=== PATIENT | female | born 1945 | race Caucasian/White ===

== ENCOUNTER → 2017-12-24 15:23 | Outpatient (CLI) | payer MEDICARE, SELFPAY ==
[2017-12-24 17:01] LABS: Absolute Lymphocyte Count 1.49 X10^3/ul (0.83-4.51); Absolute Neutrophil Count 4.1 X10^3/uL (2.0-7.7); Basophil# 0.02 X10^3/uL; Basophil% 0.3 % (0-1); Eosinophil# 0.24 X10^3/uL; Eosinophils% 3.7 % (0-5); Hematocrit 42.3 % (37-47); Hemoglobin 13.9 g/dl (12.0-15.0); Lymphocyte # 1.49 X10^3/ul (4.0); Lymphocyte % 22.9 % (19-41); Mean Corp Hgb Conc 32.9 g/gl (32-36); Mean Corpuscular Hgb 29.4 pg (27.0-32.0); Mean Corpuscular Volume 89.6 fL (81-99); Mean Platelet Vol. 12.6 fl (6.2-12.0); Monocyte# 0.62 X10^3/uL; Monocyte% 9.5 % (0-10); Neutrophil # 4.13 X10^3/uL (2.7-7.7); Neutrophil % 63.4 % (47-70); Platelet Count 203 K/mm3 (150-450); RBC Distribution Width CV 14.2 % (11.6-14.6); Red Blood Count 4.72 M/mm3 (4.2-5.4); White Blood Count 6.5 K/mm3 (4.4-11.0)
[2017-12-24 17:10] LABS: POSITIVE COUNT NO; POSITIVE DIFFERENTIAL NO; POSITIVE MORPHOLOGY NO
[2017-12-24 17:56] LABS: ALB/GLOB Ratio 0.9 RATIO (0.9-2.4); AST(SGOT) 13 U/L (15-37); Alanine Aminotransfer ALT/SGPT 18 U/L (13-56); Albumin, Serum 3.4 g/dL (3.2-5.0); Alkaline Phosphatase 82 U/L (45-117); Anion Gap 8 (5-15); BUN 27 mg/dL (7-18); BUN/Creat Ratio 39.1 RATIO (10-20); Chloride 105 mmol/L (98-107); Creatinine, Serum 0.69 mg/dL (0.55-1.02); EST Glomerular Filtration Rate 89 mL/min (>60); Est Glom Filt Rate - Afr Amer 107 mL/min (>60); Globulin 3.6 g/dL (2.2-4.2); Glucose 119 mg/dL (74-106); Potassium 4.1 mmol/L (3.5-5.1); Sodium Level 140 mmol/L (136-145); Thyroid Stim Hormone (TSH) 1.16 uIU/mL (0.358-3.74)
[2017-12-25 08:43] LABS: Vitamin D,25 Hydroxy 24.5 ng/mL (19.95-100.01)
== END ==
PROVIDERS: Family Provider Family Medicine Geriatric Medicine; PCP Family Medicine Geriatric Medicine; Visit Provider Family Medicine Geriatric Medicine
DX: I10 Essential (primary) hypertension (principal); E11.9 Type 2 diabetes mellitus without complications; E55.9 Vitamin D deficiency, unspecified
CPT/HCPCS: 36415; 80053; 82306; 84443; 85025

== ENCOUNTER → 2018-03-17 16:28 | Outpatient (CLI) | payer MEDICARE, SELFPAY ==
--- NOTE | 2018-03-17 16:40 | RAD_ITS ---
STUDY: X-RAY CHEST REASON FOR EXAM: Female, 72 years old. Cough TECHNIQUE: Frontal and lateral views of the chest COMPARISON: 10/11/2017 FINDINGS: The lungs are clear. There are no pleural effusions. There is no pneumothorax. The heart is normal in size. There are degenerative changes noted in the shoulders. RAD/Chest PA and Lateral IMPRESSION: No acute thoracic pathology. Electronically Signed: Jonnie Jenkins, at 17:01 EDT Tel , Service support ,
== END ==
PROVIDERS: Family Provider Family Medicine Geriatric Medicine; PCP Family Medicine Geriatric Medicine; Visit Provider Family Medicine Geriatric Medicine
DX: R06.2 Wheezing (principal); R50.9 Fever, unspecified
CPT/HCPCS: 71046; 87633

== ENCOUNTER → 2018-04-18 11:47 | Outpatient (CLI) | payer MEDICARE, SELFPAY ==
[2018-04-18 12:40] LABS: Absolute Lymphocyte Count 1.22 X10^3/ul (0.83-4.51); Absolute Neutrophil Count 5.3 X10^3/uL (2.0-7.7); Basophil# 0.02 X10^3/uL; Basophil% 0.3 % (0-1); Eosinophils% 1.4 % (0-5); Hematocrit 45.1 % (37-47); Hemoglobin 14.7 g/dl (12.0-15.0); Lymphocyte # 1.22 X10^3/ul (4.0); Lymphocyte % 16.8 % (19-41); Mean Corp Hgb Conc 32.6 g/gl (32-36); Mean Corpuscular Hgb 29.5 pg (27.0-32.0); Mean Corpuscular Volume 90.6 fL (81-99); Mean Platelet Vol. 12.2 fl (6.2-12.0); Monocyte# 0.62 X10^3/uL; Monocyte% 8.5 % (0-10); Neutrophil # 5.28 X10^3/uL (2.7-7.7); Neutrophil % 72.7 % (47-70); Platelet Count 197 K/mm3 (150-450); RBC Distribution Width CV 13.9 % (11.6-14.6); RBC Distribution Width SD 46.1 fl (35.1-43.9); Red Blood Count 4.98 M/mm3 (4.2-5.4); White Blood Count 7.3 K/mm3 (4.4-11.0)
[2018-04-18 13:12] LABS: POSITIVE COUNT NO; POSITIVE DIFFERENTIAL NO; POSITIVE MORPHOLOGY NO
[2018-04-18 13:28] LABS: ALB/GLOB Ratio 1.2 RATIO (0.9-2.4); AST(SGOT) 12 U/L (15-37); Alanine Aminotransfer ALT/SGPT < 6 U/L (13-56); Albumin, Serum 3.7 g/dL (3.2-5.0); Alkaline Phosphatase 91 U/L (45-117); Anion Gap 6 (5-15); BUN 27 mg/dL (7-18); Calcium,Total 9.8 mg/dL (8.5-10.1); Chloride 107 mmol/L (98-107); Creatinine, Serum 0.68 mg/dL (0.55-1.02); EST Glomerular Filtration Rate 91 mL/min (>60); Est Glom Filt Rate - Afr Amer 110 mL/min (>60); Globulin 3.1 g/dL (2.2-4.2); Glucose 113 mg/dL (74-106); Potassium 4.9 mmol/L (3.5-5.1); Protein, Total 6.8 g/dL (6.4-8.2); Sodium Level 140 mmol/L (136-145); Thyroid Stim Hormone (TSH) 0.07 uIU/mL (0.358-3.74)
[2018-04-18 13:33] LABS: Vitamin D,25 Hydroxy 30.1 ng/mL (29.95-100.01)
== END ==
PROVIDERS: Family Provider Family Medicine Geriatric Medicine; PCP Family Medicine Geriatric Medicine; Visit Provider Family Medicine Geriatric Medicine
DX: E11.9 Type 2 diabetes mellitus without complications (principal); E55.9 Vitamin D deficiency, unspecified; I10 Essential (primary) hypertension
CPT/HCPCS: 36415; 80053; 82306; 84443; 85025

== ENCOUNTER 2018-04-20 17:09 | Emergency (ER) | payer MEDICARE, SELFPAY ==
[2018-04-20 17:11] VITALS: BP 163/56; PULSE 64; RESP 18; TEMP 36.7; O2SAT 97; BMI 71.0
--- NOTE | 2018-04-20 17:22 | CT_ITS ---
STUDY: CT BRAIN WITHOUT CONTRAST REASON FOR EXAM: Female, 72 years old. Head injury RADIATION DOSAGE (If Supplied By Facility): CTDIvol = ( 44.99 ) mGy, DLP = ( 728.62 ) mGycm TECHNIQUE: Transaxial CT imaging of the brain was performed without administration of intravenous contrast material. Individualized dose optimization techniques were used for this CT. COMPARISON: October 11, 2017 FINDINGS: There is soft tissue swelling and minimal air in the left parietal region. The osseous structures are unremarkable. There is moderate cerebral atrophy with widening of the extra-axial spaces and ventricular dilatation. There are scattered areas of decreased attenuation within the white matter tracts of the supratentorial brain, likely microvascular changes. The basal ganglia and thalami are unremarkable. No abnormalities are seen in the brainstem. The cerebellum is unremarkable. There are moderate vascular calcifications. There is no intracranial hemorrhage. There are no findings of acute ischemia. The visualized sinuses are unremarkable. CT/Brain/Head without Contrast IMPRESSION: No acute intracranial abnormalities or changes. There are stable chronic findings. A scalp hematoma and laceration are present in the left parietal region without underlying fracture. Electronically Signed: Ana Luisa Babcock MD at 18:56 EDT Tel Direct: [phone], Service support ,
--- NOTE | 2018-04-20 17:23 | ED.VISSUMM ---
- ER Visit Summary Date of Service: 04/20/18 Chief Complaint: Head injury status post fall History of Present Illness: The patient is a 72 F who was on the commode. Uncertain whether she passed out versus loss of balance presents with laceration left parietal area. She does report being days. She complains of mild head discomfort. She denies any double vision, blurred vision loss of vision. She has multiple hearing. Denies trouble with speech or swallowing. She denies any neck pain. She denies paresthesia, anesthesia motors present time of the fall. She denies chest pain, palpitations or rapid heartbeat. She denies shortness of breath or difficulty breathing. She denies nausea or vomiting. She denies black or maroon stool. She has no urologic symptoms. Please read written note for complete detail Physical Examination: There is a laceration left parietal area that is 3-1/2-4 cm in length. There is no clinical findings of basal skull fracture. Pupils equal round reactive. Extra muscle intact. Sclera is anicteric and there is no soft conjunctival hemorrhage noted. There is no septal deviation hematoma. No pain the patient in the face. No TMJ tenderness and no evidence of malocclusion or trismus. Trachea is midline. There is no cervical spine tenderness. She has full active range of motion of her neck. Heart is regular without murmur, gallop or rub. S1 and S2 are normal. Lungs are clear to auscultation with good movement of air bilaterally. Abdomen is soft nontender. Is no pain the patient the pelvis. GCS is 15. Patient is alert and oriented ?3. Motor is 5/5. Sensation is intact. DTRs are symmetric without clonus or Babinski. Cranial nerves II through XII are intact. Finger to nose to finger was performed adequately. Test Results: CT of the head reveals no fracture, subarachnoid hemorrhage, epidural or subdural. There is no intraparenchymal bleed noted either. There is calcification of the choroid plexus. Emergency Department Course and Treatment: Since patient is greater the age of 65 and had transient loss of consciousness per the [place] CT head rule radiologic imaging of the head i.e. CAT scan is indicated. Immunizations up-to-date. Once CAT scan has been performed and if there is no obvious injury will staple laceration. Treatment Plan: Patient's wound was anesthetized 1% lidocaine. The wound was cleansed with surgical Cleanse. A total of 6 fabian was placed. Disposition: Discharged to home with family Impression: 1. Closed head injury with transient loss of consciousness 2. 3.5 cm scalp laceration 3. Fall unknown cause initial encounter This note was generated with [employer] dictation software. It may contain incorrect words, spelling, and punctuation that were not noted in review of the chart prior to signing ED Disposition - Plan for ED Patient: Disposition: Home or Assisted Living Chief Complaint: Fall Instructions: ED Fall Uncertain Cause, ED Laceration Scalp Stitch Or Stap, ED Head Injury Closed Referrals: Beltran Garza Chi, MD [Primary Care Provider] - 7 Days for suture removal
--- NOTE | 2018-04-20 17:26 | ED.DCSUM_ITS ---
- ER Visit Summary Date of Service: 04/20/18 Chief Complaint: Head injury status post fall History of Present Illness: The patient is a 72 F who was on the commode. Uncertain whether she passed out versus loss of balance presents with laceration left parietal area. She does report being days. She complains of mild head discomfort. She denies any double vision, blurred vision loss of vision. She has multiple hearing. Denies trouble with speech or swallowing. She denies any neck pain. She denies paresthesia, anesthesia motors present time of the fall. She denies chest pain, palpitations or rapid heartbeat. She denies shortness of breath or difficulty breathing. She denies nausea or vomiting. She denies black or maroon stool. She has no urologic symptoms. Please read written note for complete detail Physical Examination: There is a laceration left parietal area that is 3-1/2-4 cm in length. There is no clinical findings of basal skull fracture. Pupils equal round reactive. Extra muscle intact. Sclera is anicteric and there is no soft conjunctival hemorrhage noted. There is no septal deviation hematoma. No pain the patient in the face. No TMJ tenderness and no evidence of malocclusion or trismus. Trachea is midline. There is no cervical spine tenderness. She has full active range of motion of her neck. Heart is regular without murmur, gallop or rub. S1 and S2 are normal. Lungs are clear to auscultation with good movement of air bilaterally. Abdomen is soft nontender. Is no pain the patient the pelvis. GCS is 15. Patient is alert and oriented ?3. Motor is 5/5. Sensation is intact. DTRs are symmetric without clonus or Babinski. Cranial nerves II through XII are intact. Finger to nose to finger was performed adequately. Test Results: CT of the head reveals no fracture, subarachnoid hemorrhage, epidural or subdural. There is no intraparenchymal bleed noted either. There is calcification of the choroid plexus. Emergency Department Course and Treatment: Since patient is greater the age of 64 and had transient loss of consciousness per the [place] CT head rule radiologic imaging of the head i.e. CAT scan is indicated. Immunizations up-to- date. Once CAT scan has been performed and if there is no obvious injury will staple laceration. Treatment Plan: Patient's wound was anesthetized 1% lidocaine. The wound was cleansed with surgical Cleanse. A total of 6 fabian was placed. Disposition: Discharged to home with family Impression: 1. Closed head injury with transient loss of consciousness 2. 3.5 cm scalp laceration 3. Fall unknown cause initial encounter This note was generated with [employer] dictation software. It may contain incorrect words, spelling, and punctuation that were not noted in review of the chart prior to signing ED Disposition - Plan for ED Patient: Disposition: Home or Assisted Living Chief Complaint: Fall Instructions: ED Fall Uncertain Cause, ED Laceration Scalp Stitch Or Stap, ED Head Injury Closed Referrals: Beltran Garza Chi, MD [Primary Care Provider] - 7 Days for suture removal
[2018-04-20 18:35] VITALS: BP 164/63; PULSE 53; RESP 20; O2SAT 99
== END 2018-04-20 18:36 | disposition home or self-care (01) ==
PROVIDERS: Emergency Provider Emergency Medicine; Family Provider Family Medicine Geriatric Medicine; PCP Family Medicine Geriatric Medicine
DX: S01.01XA Laceration without foreign body of scalp, initial encounter (principal); R55 Syncope and collapse; W19.XXXA Unspecified fall, initial encounter; Y93.9 Activity, unspecified; Y92.9 Unspecified place or not applicable; E66.9 Obesity, unspecified; E11.9 Type 2 diabetes mellitus without complications; I10 Essential (primary) hypertension; E78.00 Pure hypercholesterolemia, unspecified; Z79.82 Long term (current) use of aspirin; Z79.84 Long term (current) use of oral hypoglycemic drugs; Z79.899 Other long term (current) drug therapy
CPT/HCPCS: 12002; 70450; 99285

== ENCOUNTER 2018-05-20 15:43 | Emergency (ER) | payer MEDICARE, SELFPAY ==
[2018-05-20 15:44] VITALS: BP 193/84; PULSE 63; RESP 16; TEMP 36.9; O2SAT 97; BMI 33.7
--- NOTE | 2018-05-20 16:14 | EKG12_ITS ---
Test Reason : Blood Pressure : / mmHG Vent. Rate : 054 BPM Atrial Rate : 054 BPM P-R Int : 158 ms QRS Dur : 082 ms QT Int : 452 ms P-R-T Axes : 077 041 065 degrees QTc Int : 428 ms Sinus bradycardia with sinus arrhythmia Otherwise normal ECG Confirmed by KAYDEN VERA, LATRICIA ([id number]), editor school photograph RUBI HANLEY ([id number]) on 05/22/2018 2:29:43 PM Referred By: KYUNG Confirmed By:LATRICIA MONIQUE MD
--- NOTE | 2018-05-20 16:14 | CT_ITS ---
STUDY: CT BRAIN WITHOUT CONTRAST REASON FOR EXAM: Female, 72 years old. Syncope today, hit head, dizzy. Hx hypertension and diabetes. RADIATION DOSAGE (If Supplied By Facility): CTDIvol = ( 60.81 ) mGy, DLP = ( 998.67 ) mGycm TECHNIQUE: Transaxial CT imaging of the brain was performed without administration of intravenous contrast material. COMPARISON: Study done earlier today. FINDINGS: Soft tissue swelling of the left posterior scalp. Improvement in the previously noted left lateral scalp laceration. There is no underlying fracture. There are calcifications around the carotid artery. These are noted in the cavernous carotid arteries. There is a partially calcified mass along the left extra-axial space. This is likely a meningioma. There is mild cerebral atrophy with widening of the extra-axial spaces and ventricular dilatation. There are areas of decreased attenuation within the white matter tracts of the supratentorial brain, consistent with microvascular disease changes. Normal basal ganglia and thalami. Normal brainstem. There is mild cerebellar atrophy. There is no intracranial hemorrhage. There are no findings of an acute ischemic infarction. Normal visualized paranasal sinuses. CT/Brain/Head without Contrast IMPRESSION: Chronic involutional changes of the brain. Soft tissue swelling of the left posterior scalp. There is no underlying fracture.Improvement in the previously noted left lateral scalp laceration. . Electronically Signed: Juan Grijalva MD at 17:50 EDT , Service support ,
--- NOTE | 2018-05-20 16:18 | ED.DCSUM_ITS ---
- ER Visit Summary Date of Service: 05/20/18 Chief Complaint: Head injury History of Present Illness: The patient is a 72 F who states that she was in bed this afternoon (having just came back from [place]) and around 1500 needed to urinate. The patient got up and felt dizzy/lightheaded but grabbed her walker and continued on eventually passed out. She struck the back of her head on the ground. Possible loss of consciousness. She denies any other injuries other than a contusion to her scalp. No chest pain or shortness of breath. She has a history of orthostatic hypotension. Physical Examination: Afebrile vital signs are stable Gen: Well-nourished well-developed Head: Normocephalic left occipital hematoma Eyes: Perrl EOMI ENT: TMs clear no rhinorrhea moist mucous membranes Neck: Supple no lymphadenopathy no JVD nontender CVS: Regular rate rhythm no murmurs normal S1-S2 Respiratory: No distress clear to auscultation bilaterally chest nontender Abdomen: Soft nontender nondistended normal bowel sounds no masses Back: Nontender Extremity: Nontender no edema Skin: Normal color no rash Neuro: alert orientated ?3 CN II-XII intact normal strength sensation reflexes cerebellar Psych: Normal affect normal mood Test Results: Labs appear at its baseline. CT brain showed no hemorrhage. EKG sinus at a rate of 54. Emergency Department Course and Treatment: Orthostatics were negative. Patient feels good and wishes to go home which I feel is very reasonable. I think the patient most likely suffered a degree of hypotension from getting up too fast coupled with a strong urge to urinate possible vagal reaction. Impression: 1. Syncope secondary to orthostatic hypotension 2. Scalp hematoma This note was generated with [employer] dictation software. It may contain incorrect words, spelling, and punctuation that were not noted in review of the chart prior to signing ED Disposition - Plan for ED Patient: Disposition: Home or Assisted Living Chief Complaint: Syncope Instructions: ED Hypotension Orthostatic Referrals: Beltran Garza Chi, MD [Primary Care Provider] - 1 Week
[2018-05-20 16:32] LABS: Absolute Lymphocyte Count 1.03 X10^3/ul (0.83-4.51); Basophil# 0.01 X10^3/uL; Basophil% 0.2 % (0-1); Eosinophil# 0.23 X10^3/uL; Hematocrit 39.7 % (37-47); Hemoglobin 12.8 g/dl (12.0-15.0); Lymphocyte # 1.03 X10^3/ul (4.0); Lymphocyte % 17.9 % (19-41); Mean Corp Hgb Conc 32.2 g/gl (32-36); Mean Corpuscular Hgb 29.4 pg (27.0-32.0); Mean Corpuscular Volume 91.1 fL (81-99); Mean Platelet Vol. 11.7 fl (6.2-12.0); Monocyte# 0.48 X10^3/uL; Monocyte% 8.4 % (0-10); Neutrophil # 3.98 X10^3/uL (2.7-7.7); Neutrophil % 69.3 % (47-70); Platelet Count 168 K/mm3 (150-450); RBC Distribution Width CV 14.4 % (11.6-14.6); RBC Distribution Width SD 48.3 fl (35.1-43.9); Red Blood Count 4.36 M/mm3 (4.2-5.4); White Blood Count 5.7 K/mm3 (4.4-11.0)
[2018-05-20 16:34] LABS: POSITIVE COUNT NO; POSITIVE DIFFERENTIAL NO; POSITIVE MORPHOLOGY NO
[2018-05-20 16:37] VITALS: BP 147/93; BP 159/96; PULSE 58; PULSE 60
--- NOTE | 2018-05-20 16:37 | ED.RN ---
PT FELT DIZZY AFTER SITTING UP FROM LAYING POSITION. DID NOT STAND PATIENT FOR STANDING ORTHO VITAL DUE TO DIZZINESS AND FEELING FAINT.
[2018-05-20 16:40] LABS: Bacteria 0 SEEN /hpf (None Seen); Mucous, Urine 0 SEEN /hpf (<or=2+); Red Blood Cells-Urine 0 SEEN /hpf (0-5); White Blood Cells 0 SEEN /hpf (0-5)
[2018-05-20 16:45] LABS: Anion Gap 5 (5-15); BUN 25 mg/dL (7-18); BUN/Creat Ratio 43.4 RATIO (10-20); Calcium,Total 9.1 mg/dL (8.5-10.1); Chloride 106 mmol/L (98-107); Creatinine, Serum 0.58 mg/dL (0.55-1.02); EST Glomerular Filtration Rate 109 mL/min (>60); Est Glom Filt Rate - Afr Amer 132 mL/min (>60); Estimated Creatinine Clearance 39.63 ml/min; Glucose 70 mg/dL (74-106); Sodium Level 140 mmol/L (136-145)
[2018-05-20 16:46] LABS: Color, Urine Yellow (Yellow); Glucose, Dipstick Normal (Normal); Ketone-Dipstick Negative (Negative); Leukocyte Esterase-Dipstick Negative /ul (Negative); Nitrite-Dipstick Negative (Negative); Occult Blood-Urine Negative /ul (Negative); Protein-Dipstick Negative (Negative); Urine Bilirubin Dipstick Negative (Negative); Urine Clarity Clear (Clear); Urine Urobilinogen Normal (Normal); Urine pH 6.5 (5.0 - 8.0)
[2018-05-20 17:00] LABS: Squamous Epithelial Cells - UA 0 SEEN /hpf (5-10)
[2018-05-20 18:42] VITALS: BP 164/74; PULSE 58; RESP 18; O2SAT 95
== END 2018-05-20 18:43 | disposition home or self-care (01) ==
PROVIDERS: Emergency Provider Emergency Medicine; Family Provider Family Medicine Geriatric Medicine; PCP Family Medicine Geriatric Medicine
DX: I95.1 Orthostatic hypotension (principal); S00.03XA Contusion of scalp, initial encounter; W01.198A Fall on same level from slipping, tripping and stumbling with subsequent striking against other object, initial encounter; Y93.9 Activity, unspecified; Y92.008 Other place in unspecified non-institutional (private) residence as the place of occurrence of the external cause; Y99.9 Unspecified external cause status; E11.9 Type 2 diabetes mellitus without complications; I10 Essential (primary) hypertension; E78.00 Pure hypercholesterolemia, unspecified; G20 Parkinson's disease; Z87.891 Personal history of nicotine dependence
CPT/HCPCS: 70450; 80048; 81001; 84484; 85025; 93005; 99285; A4216

== ENCOUNTER → 2018-06-02 15:04 | Outpatient (CLI) | payer MEDICARE, SELFPAY ==
[2018-06-02 18:05] LABS: Thyroid Stim Hormone (TSH) 0.59 uIU/mL (0.358-3.74)
== END ==
PROVIDERS: Family Provider Family Medicine Geriatric Medicine; PCP Family Medicine Geriatric Medicine; Visit Provider Family Medicine Geriatric Medicine
DX: E03.9 Hypothyroidism, unspecified (principal)
CPT/HCPCS: 36415; 84443; 97110

== ENCOUNTER 2018-08-14 15:00 | Outpatient (RCR) | payer MEDICARE, SELFPAY ==
--- NOTE | 2018-05-01 18:13 | HP.PTEVAL_ITS ---
Patient's Visit Information VIPUL RODRÍGUEZ is a 72 year old F referred to Physical Therapy by Beltran Garza with a diagnosis of Gait difficulty. Date of Evaluation: 05/01/18 Physical Therapist: Juan Schwartz PT, - Visit Plan Frequency: 3x /Week Duration: 6-8 weeks Plan: B LE strengthening, balance and proprio, gait training with cane, nustep, and HEP - Subjective Subjective: Pt reports her walking has been getting worse over the past 6 mos. Pt reports she was Dx'd with Parkinsons disease on her last Dr visit, which she was actually surprised to hear. Pt reports she is very weak, and her stamina is very low. Pt reports she doesn't like exercise, and she has noticed a difference with her balance lessening. Pt reports she has OA in her shoulders, but no other pain. Pt reports she has had 6 falls since November. Pt reports she has good feeling in her feet, but does get tingling sensations at times. - Objective Neuro: B LE sensation is WNL to light touch. B patellar tendon reflex= 2/3. MMT : B hip abd and add= 5/5. All other measurements 4-/5. Balance: LS EO/EC pt is very steady for 60 sec ea. Pt is unable to stand greater than 1 sec for SL. Gait: Pt is able to ambulate for 130 with Std cane, but is very unsteady. Pt is very steady with ambulating 130 ft with WW - Goals Goal 1:: Increase B LE strength x 1 grade to aid with IADL's Goal Time Frame: 6-8 Weeks Goal 2:: Pt will be able to ambulate 340' with LRD to aid with community ambulation Goal Time Frame: 6-8 Weeks Goal 3:: I with HEP Goal Time Frame: 4-6 Weeks - Rehabilitation Potential Physical Therapy Diagnosis: Pt has LE weakness and decreased balance secondary to Parkinsons disease Rehabilitation Potential: Good - Anticipated Interventions Patient/Client Instruction: Educate patient on: Condition, Plan of Care For the Purpose of:: To improve self management Therapeutic Exercise to Include: Strength training, Endurance training, Balance training, Gait and locomotor training For the Purpose of:: To improve muscle performance and motor function, To increase tolerance to activity/condition/position Thank you for the opportunity to evaluate your patient. For Medicare and Medicare HMO plans, please review the plan of care and approve it. It will need to be FAXED BACK to us at [phone] for Medicare purposes. Please let me know if there are questions or concerns regarding this plan of care. Physician Signature: Date:
--- NOTE | 2018-06-06 14:03 | HP.PTEVAL2_ITS ---
Patient's Visit Information VIPUL RODRÍGUEZ is a 72 year old F referred to Physical Therapy by Beltran Garza with a diagnosis of BPPV. Date of Evaluation: 06/06/18 Physical Therapist: Lala Abarca - Visit Plan Frequency: 1-2x /Week Duration: 2 Weeks Plan: 1-2X/ week for re-testing of Hallpike and Eply if needed and possible Yusuf-daroff exercises if needed for home - Subjective Subjective: Dizziness started several weeks ago and has been off and on dizziness since Nov. Pt reports that she gets dizzy when turns her head or when gets up too soon. Did not notice too much when she fell in Dec. When she is in bed she gets dizzy sometimes when she rolls to the R. She is on BP med ( on 3 X / day to avoid orthostatic hypotension). Pt thinks that med has helped a little bit. The room spins when she rolls to the R side and lasts a couple of minutes. Now pt thinks rolling to the L also increases dizziness. Pt is not dizziness right now. Possibly overall dizziness getting better. Pt is currently being seen here in PT for Parkinson's.... Fallen 6-7 times since Nov. She uses the walker since the Dr said to use the walker (3-4 weeks ago). Before that she was getting around ok in the house. - Objective Objective: - Hallpike to the R for nystagmus and slight brief dizziness (? PB). + Hallpike to the L for nystagmus and dizziness that lasted about 26 seconds. Treated with L EPLY. Re-tested L Hallpike and pt was negative for nystagmus but positive for slight dizziness that lasted approx 10 seconds. Re-treated with L EPLY. Re-test L hallpike for 3rd time and was negative for dizziness and nystagmus. Advised pt to avoid prolonged looking down through tonight. - Goals Goal 1:: Abolish dizziness with turning in bed Goal Time Frame: 2 Weeks Goal 2:: I HEP (Yusuf daroff) if needed Goal Time Frame: 2 Weeks - Rehabilitation Potential Rehabilitation Potential: Good - Anticipated Interventions Patient/Client Instruction: Educate patient on: Condition, Plan of Care For the Purpose of:: To improve ability to perform ADL's, To improve ability of physical actions for home/community/work/leisure, To improve gait and locomotor functions, To improve balance Therapeutic Exercise to Include: Neuromotor development For the Purpose of:: To improve ability to perform ADL's, To increase tolerance to activity/condition/position, To improve gait and locomotor functions, To improve balance, To improve safety with gait Manual Therapy Techniques to Include: Other Comment: Eply For the Purpose of:: To increase tolerance to activity/condition/position, To improve ability of physical actions for home/community/work/leisure Thank you for the opportunity to evaluate your patient. For Medicare and Medicare HMO plans, please review the plan of care and approve it. It will need to be FAXED BACK to us at [phone] for Medicare purposes. Please let me know if there are questions or concerns regarding this plan of care. Physician Signature: Date:
--- NOTE | 2018-06-13 14:23 | HP.PTCOM ---
PT Communication Note 06/13/[address] Beltran Garza , Thank you for the referral of Shannan Godwin to out clinic. The pt was tested on our [employer] Balance Master today and enclosed are the patients test results. On the Sensory Organization Test (SOT): the pt had some trouble with the use of her vestibular and visual systems to help her maintain her balance. She uses her ankles for strategy analysis which is higher level and her center of gravity alignment is within normal limits. On the Motor Control Test (MCT): the pt had good overall reaction time. On the Limits of Stability Test (LOS): the pt had some difficulty with weight shifting forward, backward, and slightly to the left. At this point in time, I will see the pt a couple of times per week for a few weeks to work on VOR exercises, vestibular inputs, and weight shifting activities. Sincerely, Lala Abarca Contact Information
--- NOTE | 2018-06-16 17:16 | HP.PTREVAL_ITS ---
Beltran Chi Greg, It has been my pleasure to treat VIPUL RODRÍGUEZ over the last 9 visits for Gait difficulty. Please see the progress note below for an update on the physical therapy plan of care! Subjective: Pt reports she knows she still has balance issues. Pt feels as though she would benefit from more PT Objective/Function: B LE strength now 4/5 throughout. Pt is able to ambulate 680' with WW and CGAx1 until being fatigued. Pt is able to ambulate 170' with no AD and cgax1. Pt is progressing well toward Rx goals Plan Plan: Continue to progress as paulina Goals Goal 1:: Increase B LE strength x 1 grade to aid with IADL's Goal Time Frame: 6-8 Weeks Goal Progress: Progressing Goal 2:: Pt will be able to ambulate 340' with LRD to aid with community ambulation Goal Time Frame: 6-8 Weeks Goal 3:: I with HEP Goal Time Frame: 4-6 Weeks Goal Progress: Progressing Anticipated Interventions Patient/Client Instruction: Educate patient on: Condition, Plan of Care For the Purpose of:: To improve self management Therapeutic Exercise to Include: Strength training, Endurance training, Balance training, Gait and locomotor training For the Purpose of:: To improve muscle performance and motor function, To increase tolerance to activity/condition/position Please do not hesitate to contact me at [phone] by phone or Fax: if you have questions or concerns regarding this new plan of care! Sincerely, Juan Schwartz, PT,
--- NOTE | 2018-07-23 15:57 | HP.PTREVAL ---
Beltran Chi Greg, It has been my pleasure to treat VIPUL RODRÍGUEZ over the last 19 visits for Gait difficulty. Please see the progress note below for an update on the physical therapy plan of care! Subjective: Pt is very fatigued this date. Pt reports the heat is killing me Objective/Function: B LE grossly 5/5 with exception of L knee flex= 4-/5 and R knee ext 4/5. Pt was able to ambulate 120' with cane until needing to sit down and rest. Pt is progressing well with HEP Plan Plan: Cont 2x's per week for 3 weeks Goals Goal 1:: Increase B LE strength x 1 grade to aid with IADL's Goal Time Frame: 6-8 Weeks Goal Progress: Progressing Goal 2:: Pt will be able to ambulate 340' with LRD to aid with community ambulation Goal Time Frame: 6-8 Weeks Goal Progress: Progressing Goal 3:: I with HEP Goal Time Frame: 4-6 Weeks Goal Progress: Progressing Anticipated Interventions Patient/Client Instruction: Educate patient on: Condition, Plan of Care For the Purpose of:: To improve self management Therapeutic Exercise to Include: Strength training, Endurance training, Balance training, Gait and locomotor training For the Purpose of:: To improve muscle performance and motor function, To increase tolerance to activity/condition/position Please do not hesitate to contact me at [phone] by phone or if you have questions or concerns regarding this new plan of care! Sincerely, Juan Schwartz, PT,
--- NOTE | 2018-08-14 15:32 | HP.PTDCSUM_ITS ---
HP - PT D/C Summary It has been my pleasure to treat VIPUL RODRÍGUEZ under orders from [employer] Greg, for the diagnosis of Gait difficulty for a total of 24 visit(s). Discharge Date: Please see the following information for a summary of their discharge status. - Subjective Subjective: Pt reports she is in pain today from the weather. - Pain BILAT ARMS Pain Intensity (Out of 10): 7 hips Pain Intensity (Out of 10): 3 - Overall Improvement % Improvement: 50 - Objective Objective/Function: B LE MMT: 5/5 throughout. Pt is able to walk greater than 340' with WW without difficulty. Pt is I with HEP. Rx goals achieved - Goals Goal 1:: Increase B LE strength x 1 grade to aid with IADL's Goal Progress: Goal Met Goal 2:: Pt will be able to ambulate 340' with LRD to aid with community ambulation Goal Progress: Goal Met Goal 3:: I with HEP Goal Progress: Goal Met - Plan Plan: Discharge - D/C Information If there are questions or concerns regarding this patient's physical therapy, please feel free to call me at [phone]. Thank you for the referral of this patient. Sincerely, Juan Schwartz, PT,
== END 2018-08-14 15:35 | disposition home or self-care (01) ==
LOC: PT 15:00
PROVIDERS: Family Provider Family Medicine Geriatric Medicine; PCP Family Medicine Geriatric Medicine; Visit Provider Family Medicine Geriatric Medicine
DX: G20 Parkinson's disease (principal); R26.9 Unspecified abnormalities of gait and mobility
CPT/HCPCS: 97110; 97162; 97530; 97750

== ENCOUNTER → 2018-09-08 16:29 | Outpatient (CLI) | payer MEDICARE, SELFPAY ==
[2018-09-08 17:35] LABS: Absolute Neutrophil Count 6.2 X10^3/uL (2.0-7.7); Basophil# 0.02 X10^3/uL; Basophil% 0.2 % (0-1); Eosinophil# 0.33 X10^3/uL; Eosinophils% 3.6 % (0-5); Hematocrit 43.5 % (37-47); Hemoglobin 14.2 g/dl (12.0-15.0); Lymphocyte % 21.8 % (19-41); Mean Corp Hgb Conc 32.6 g/gl (32-36); Mean Corpuscular Hgb 29.9 pg (27.0-32.0); Mean Corpuscular Volume 91.6 fL (81-99); Mean Platelet Vol. 12.1 fl (6.2-12.0); Monocyte# 0.66 X10^3/uL; Monocyte% 7.2 % (0-10); Neutrophil # 6.16 X10^3/uL (2.7-7.7); Neutrophil % 67.1 % (47-70); Platelet Count 238 K/mm3 (150-450); RBC Distribution Width CV 13.7 % (11.6-14.6); RBC Distribution Width SD 45.2 fl (35.1-43.9); Red Blood Count 4.75 M/mm3 (4.2-5.4); White Blood Count 9.2 K/mm3 (4.4-11.0)
[2018-09-08 17:39] LABS: POSITIVE COUNT NO; POSITIVE DIFFERENTIAL NO; POSITIVE MORPHOLOGY NO
[2018-09-08 17:47] LABS: ALB/GLOB Ratio 1.1 RATIO (0.9-2.4); AST(SGOT) 14 U/L (15-37); Alanine Aminotransfer ALT/SGPT < 6 U/L (13-56); Albumin, Serum 3.6 g/dL (3.2-5.0); Alkaline Phosphatase 76 U/L (45-117); Anion Gap 9 (5-15); BUN 31 mg/dL (7-18); BUN/Creat Ratio 43.5 RATIO (10-20); Chloride 106 mmol/L (98-107); Creatinine, Serum 0.71 mg/dL (0.55-1.02); EST Glomerular Filtration Rate 85 mL/min (>60); Est Glom Filt Rate - Afr Amer 103 mL/min (>60); Globulin 3.3 g/dL (2.2-4.2); Glucose 85 mg/dL (74-106); Potassium 4.5 mmol/L (3.5-5.1); Protein, Total 6.9 g/dL (6.4-8.2); Sodium Level 140 mmol/L (136-145); Thyroid Stim Hormone (TSH) 0.77 uIU/mL (0.358-3.74)
== END ==
PROVIDERS: Family Provider Family Medicine Geriatric Medicine; PCP Family Medicine Geriatric Medicine; Visit Provider Family Medicine Geriatric Medicine
DX: R53.83 Other fatigue (principal); N39.0 Urinary tract infection, site not specified
CPT/HCPCS: 36415; 80053; 84443; 85025; 87086; 87088

== ENCOUNTER 2018-10-05 14:26 | Emergency (ER) | payer MEDICARE, SELFPAY ==
[2018-10-05 14:26] VITALS: BP 162/84; BP 162/87; PULSE 69; PULSE 72; RESP 14; TEMP 36.4; O2SAT 95; BMI 34.7
--- NOTE | 2018-10-05 15:03 | ED.VISSUMM ---
- ER Visit Summary Date of Service: 10/05/18 Chief Complaint: Nausea vomiting diarrhea History of Present Illness: The patient is a 72 F presents with nausea and vomiting as well as loose stools that started about 2 hours ago after eating lunch. She had mild abdominal cramping but she denies any abdominal pain currently. She feels lightheaded, denies chest pain shortness of breath dysuria. She has not had any recent antibiotics or recent hospitalization no recent travel. Physical Examination: Not appear in acute distress. Slightly dry mucous membranes, no obvious facial deformity No C-spine tenderness supple neck. Regular rate and rhythm without any obvious murmurs Clear lungs bilaterally speaking in full sentences without any obvious respiratory distress Abdomen soft and currently nontender no guarding or rebound Moves all extremities without any difficulty or pain. Skin does not show any obvious rashes or lesions, no trauma. Alert oriented ?3 with no gross focal deficit Emergency Department Course and Treatment: Patient appears well, she significantly improved after IV fluids. Her workup is unremarkable, she has had 3 hours of basically nausea and vomiting and one episode of loose stools. She has no abdominal pain. I will discharge in stable condition. If she develops abdominal pain if she develops right lower quadrant pain or fever chills she needs to return at this time she appears well and will be discharged with symptomatic treatment, basically antiemetics. Discharge stable condition Impression: Nausea vomiting This note was generated with [employer] dictation software. It may contain incorrect words, spelling, and punctuation that were not noted in review of the chart prior to signing ED Disposition - Plan for ED Patient: Disposition: Home or Assisted Living Chief Complaint: Nausea/Vomiting/Diarrhea Instructions: ED Gastroenteritis Vs Food Poison Prescriptions: Ondansetron [Zofran Odt] 4 mg PO Q8H PRN PRN #10 tab PRN Reason: Nausea Referrals: Beltran Garza Chi, MD [Primary Care Provider] - 3-5 Days
[2018-10-05] MEDS: Famotidine 20 MG Tablet 40 MG PO (15:28)
[2018-10-05] MEDS: 0.9% Normal Saline 1,000 ML 1000 ML IV (15:28)
[2018-10-05] MEDS: Ondansetron 4 MG/2 ML Vial IV (15:28)
[2018-10-05 17:22] LABS: Absolute Lymphocyte Count 0.78 X10^3/ul (0.83-4.51); Absolute Neutrophil Count 3.1 X10^3/uL (2.0-7.7); Basophil# 0.02 X10^3/uL; Basophil% 0.5 % (0-1); Eosinophil# 0.02 X10^3/uL; Eosinophils% 0.5 % (0-5); Hemoglobin 11.7 g/dl (12.0-15.0); Lymphocyte # 0.78 X10^3/ul (4.0); Mean Corp Hgb Conc 31.6 g/gl (32-36); Mean Corpuscular Hgb 28.8 pg (27.0-32.0); Mean Corpuscular Volume 91.1 fL (81-99); Mean Platelet Vol. 11.1 fl (6.2-12.0); Monocyte# 0.43 X10^3/uL; Monocyte% 9.9 % (0-10); Neutrophil # 3.07 X10^3/uL (2.7-7.7); Neutrophil % 70.9 % (47-70); Platelet Count 137 K/mm3 (150-450); RBC Distribution Width CV 14.1 % (11.6-14.6); RBC Distribution Width SD 46.4 fl (35.1-43.9); Red Blood Count 4.06 M/mm3 (4.2-5.4); White Blood Count 4.3 K/mm3 (4.4-11.0)
[2018-10-05 17:23] LABS: POSITIVE COUNT NO; POSITIVE DIFFERENTIAL NO; POSITIVE MORPHOLOGY NO
[2018-10-05 17:28] VITALS: BP 172/87; PULSE 69; O2SAT 99
[2018-10-05 17:35] LABS: ALB/GLOB Ratio 0.9 RATIO (0.9-2.4); AST(SGOT) 23 U/L (15-37); Alanine Aminotransfer ALT/SGPT 18 U/L (13-56); Albumin, Serum 2.8 g/dL (3.2-5.0); Alkaline Phosphatase 72 U/L (45-117); Anion Gap 6 (5-15); BUN 18 mg/dL (7-18); BUN/Creat Ratio 32.5 RATIO (10-20); Calcium,Total 7.5 mg/dL (8.5-10.1); Chloride 111 mmol/L (98-107); Creatinine, Serum 0.55 mg/dL (0.55-1.02); EST Glomerular Filtration Rate 114 mL/min (>60); Est Glom Filt Rate - Afr Amer 138 mL/min (>60); Estimated Creatinine Clearance 35.99 ml/min; Globulin 3.1 g/dL (2.2-4.2); Glucose 113 mg/dL (74-106); Potassium 3.8 mmol/L (3.5-5.1); Protein, Total 5.9 g/dL (6.4-8.2); Sodium Level 140 mmol/L (136-145)
[2018-10-05 18:46] VITALS: BP 192/89; PULSE 86; O2SAT 96
== END 2018-10-05 18:47 | disposition home or self-care (01) ==
PROVIDERS: Emergency Provider Emergency Medicine; Family Provider Family Medicine Geriatric Medicine; PCP Family Medicine Geriatric Medicine
DX: R11.2 Nausea with vomiting, unspecified (principal); R10.9 Unspecified abdominal pain; R19.7 Diarrhea, unspecified; R53.1 Weakness; E11.9 Type 2 diabetes mellitus without complications; I10 Essential (primary) hypertension; E78.00 Pure hypercholesterolemia, unspecified
CPT/HCPCS: 80053; 85025; 96361; 96374; 99285; J7030; A4216; J2405

== ENCOUNTER → 2018-10-17 10:47 | Outpatient (CLI) | payer MEDICARE, SELFPAY ==
[2018-10-05 14:26] VITALS: BMI 34.7
[2018-10-17 12:17] LABS: Absolute Lymphocyte Count 0.76 X10^3/ul (0.83-4.51); Absolute Neutrophil Count 2.4 X10^3/uL (2.0-7.7); Basophil# 0.02 X10^3/uL; Basophil% 0.5 % (0-1); Eosinophil# 0.15 X10^3/uL; Eosinophils% 3.9 % (0-5); Hematocrit 36.1 % (37-47); Hemoglobin 11.8 g/dl (12.0-15.0); Lymphocyte # 0.76 X10^3/ul (4.0); Lymphocyte % 19.7 % (19-41); Mean Corp Hgb Conc 32.7 g/gl (32-36); Mean Corpuscular Hgb 29.2 pg (27.0-32.0); Mean Corpuscular Volume 89.4 fL (81-99); Mean Platelet Vol. 11.3 fl (6.2-12.0); Neutrophil # 2.41 X10^3/uL (2.7-7.7); Neutrophil % 62.6 % (47-70); Platelet Count 195 K/mm3 (150-450); RBC Distribution Width CV 13.9 % (11.6-14.6); RBC Distribution Width SD 44.5 fl (35.1-43.9); Red Blood Count 4.04 M/mm3 (4.2-5.4); White Blood Count 3.9 K/mm3 (4.4-11.0)
[2018-10-17 12:26] LABS: POSITIVE COUNT NO; POSITIVE DIFFERENTIAL NO; POSITIVE MORPHOLOGY NO
[2018-10-17 12:32] LABS: ALB/GLOB Ratio 0.9 RATIO (0.9-2.4); AST(SGOT) 21 U/L (15-37); Alanine Aminotransfer ALT/SGPT 16 U/L (13-56); Albumin, Serum 3.1 g/dL (3.2-5.0); Alkaline Phosphatase 80 U/L (45-117); Anion Gap 9 (5-15); BUN 18 mg/dL (7-18); BUN/Creat Ratio 25.6 RATIO (10-20); Calcium,Total 9.4 mg/dL (8.5-10.1); Chloride 102 mmol/L (98-107); EST Glomerular Filtration Rate 87 mL/min (>60); Est Glom Filt Rate - Afr Amer 105 mL/min (>60); Globulin 3.5 g/dL (2.2-4.2); Glucose 160 mg/dL (74-106); Potassium 4.2 mmol/L (3.5-5.1); Protein, Total 6.6 g/dL (6.4-8.2); Sodium Level 138 mmol/L (136-145); Thyroid Stim Hormone (TSH) 4.03 uIU/mL (0.358-3.74); Uric Acid 5.8 mg/dL (2.6-6.0); Vitamin D,25 Hydroxy 30.5 ng/mL (29.95-100.01)
--- OUTSIDE RECORDS SUMMARY | 2018-12-12 08:21 | XMS RPT_ITS ---
:1945 Author Organization OHIP Support Name Relationship Address Phone COLLIN ANANYA Unavailable [address] + [place] [address] R Unavailable Unavailable Unavailable PLEGGE, ANANYA Unavailable [address] + [place] [address] R Unavailable Unavailable Unavailable PLEGGE, ANANYA Unavailable [address] + [place] [address] R Unavailable Unavailable Unavailable PLEGGE, ANANYA Unavailable [address] + [place] [address] R Unavailable Unavailable Unavailable PLEGGE, ANANYA Unavailable [address] + [place] [address] R Unavailable Unavailable Unavailable PLEGGE, ANANYA Unavailable [address] + [place] [address] R Unavailable Unavailable Unavailable PLEGGE, ANANYA Unavailable [address] + [place] [address] R Unavailable Unavailable Unavailable PLEGGE, ANANYA Unavailable [address] + [place] [address] R Unavailable Unavailable Unavailable PLEGGE, ANANYA Unavailable [address] + [place] [address] R Unavailable Unavailable Unavailable PLEGGE, ANANYA Unavailable Unavailable + PLEGGE, ANANYA Unavailable [address] + [place] [address] R Unavailable Unavailable Unavailable Care Team Providers Name Role Phone SHAN BREWER, DR. VITALE Attending Unavailable TOÑITO BREWER, DR. BOUCHER Primary Care Unavailable Beltran Sibley Chi Attending Unavailable Toñito, Beltran Chi Primary Care Unavailable Toñito, Beltran Chi Attending Unavailable Toñito, Beltran Chi Referring Unavailable Toñito, Beltran Chi Primary Care Unavailable Toñito, Beltran Chi Attending Unavailable Toñito, Beltran Chi Primary Care Unavailable Toñito, Beltran Chi Primary Care Unavailable Rosen, Sloan Attending Unavailable Toñito, Beltran Chi Attending Unavailable Toñito, Beltran Chi Primary Care Unavailable Gaytan, Joe Consulting Unavailable Gaytan, Joe Referring Unavailable Toñito, Beltran Chi Attending Unavailable Toñito, Beltran Chi Primary Care Unavailable Toñito, Beltran Chi Primary Care Unavailable Dami Royal Attending Unavailable Toñito, Beltran Chi Attending Unavailable Toñito, Beltran Chi Primary Care Unavailable Toñito, Beltran Chi Primary Care Unavailable Bertram Lord Attending Unavailable Toñito, Beltran Chi Attending Unavailable Toñito, Beltran Chi Primary Care Unavailable PROBLEMS PROBLEMS DATE TYPE CONDITION / CODE ATTENDING STATUS SOURCE 08/14/2018 Unknown G20 - Parkinson's Toñito, Beltran Chi Active [place] disease / Community G20(ICD-10) Hospital Repository 03/17/2018 Unknown R06.2 - Wheezing / Toñito, Beltran Chi Active [place] R06.2(ICD-10) [facility] Repository 03/17/2018 Unknown R50.9 - Fever, Toñito, Beltran Chi Active [place] unspecified / Community R50.9(ICD-10) Hospital Repository 12/24/2017 Unknown E55.9 - Vitamin D Toñito, Beltran Chi Active [place] deficiency, Community unspecified / Hospital E55.9(ICD-10) Repository 12/24/2017 Unknown E11.9 - Type 2 Toñito, Beltran Chi Active [place] diabetes mellitus Community without Hospital complications / Repository E11.9(ICD-10) 12/24/2017 Unknown I10 - Essential Toñito, Beltran Chi Active [place] (primary) Community hypertension / Hospital I10(ICD-10) Repository PROCEDURES PROCEDURES No Procedure Records FoundRESULTS RESULTS CBC W/DIFF, AUTOMATED Collected: 10/17/2018 Status: F Source: [place] 10:48 AM [facility] REPOSITORY TYPE CODE TESTS RESULT OUT OF RANGE REFERENCE UNITS LAB L100.1000 4.4-11.0 K/mm3 Low WBC 3.9 LAB L100.1200 4.2-5.4 M/mm3 Low RBC 4.04 LAB L100.1300 12.0-15.0 g/dl Low HGB 11.8 LAB L100.1400 37-47 % Low HCT 36.1 LAB L100.1500 81-99 fL Normal MCV 89.4 LAB L100.1600 27.0-32.0 pg Normal MCH 29.2 LAB L100.1700 32-36 g/gl Normal MCHC 32.7 LAB L100.1810 11.6-14.6 % Normal RDW CV 13.9 LAB L100.1820 35.1-43.9 fl High RDW SD 44.5 LAB L100.1900 150-450 K/mm3 Normal PLT 195 LAB L100.2000 6.2-12.0 fl Normal MPV 11.3 LAB L100.2100 47-70 % Normal NEUT% 62.6 LAB L100.2200 19-41 % Normal LY% 19.7 LAB L100.2300 0-10 % High MONO% 13.0 LAB L100.2400 0-5 % Normal EO% 3.9 LAB L100.2500 0-1 % Normal BASO% 0.5 LAB L100.2550 0.0-0.9 % Normal IM GRAN % 0.300 Result Comment: IG% - Immature Granulocytes (promyelocytes, myelocytes and metamyelocytes) > 1% indicates that a LEFT SHIFT is Present. LAB L100.2620 2.0-7.7 X10 3/uL Normal Absolute Neut 2.4 LAB L100.2720 0.83-4.51 X10 3/ul Low Absolute Lymph 0.76 Performed By: #### L100.0100 #### [facility] [address] [facility]. [place], [place], [address] COMPREHENSIVE METABOLIC Collected: 10/17/2018 Status: F Source: [facility] 10:48 AM [facility] REPOSITORY TYPE CODE TESTS RESULT OUT OF RANGE REFERENCE UNITS LAB L501.0100 74-106 mg/dL High GLU 160 Result Comment: Fasting Glucose result greater than or equal to 126 mg/dL suggests DIABETES MELLITUS per A.D.A. criteria. Please note revised GLUCOSE reference range effective 2017. LAB L501.1000 7-18 mg/dL Normal BUN 18 LAB L501.1100 0.55-1.02 mg/dL Normal CREAT,SERUM 0.70 Result Comment: The validity of the calculated GFR AND GFRAA in patients over 70 years has not been determined. Clinical correlation is essential. LAB L501.1110 >60 mL/min Normal EST GFR 87 Result Comment: Non- GFR Calc LAB L501.1115 >60 mL/min Normal EST GFR - AA 105 Result Comment: GFR Calc LAB L501.1300 10-20 RATIO High BUN/CRE 25.6 LAB L501.1500 6.4-8.2 g/dL T Normal PROT 6.6 LAB L501.1800 3.2-5.0 g/dL Low ALB 3.1 LAB L501.1950 2.2-4.2 g/dL Normal GLOB 3.5 LAB L501.2000 0.9-2.4 RATIO Normal A/G 0.9 LAB L501.2200 8.5-10.1 mg/dL CA Normal 9.4 LAB L501.4100 15-37 U/L Normal AST 21 LAB L501.4305 45-117 U/L Normal ALK P 80 LAB L501.4405 13-56 U/L Normal ALT 16 LAB L501.4600 0.20-1.00 mg/dL T Normal BILI 0.80 LAB L501.5300 136-145 mmol/L NA Normal 138 LAB L501.5600 3.5-5.1 mmol/L K Normal 4.2 LAB L501.5900 98-107 mmol/L CL Normal 102 LAB L501.6100 21.0-32.0 mmol/L Normal CO2 27.0 LAB L501.6200 5-15 Normal GAP 9 Performed By: #### L500.4050, L501.1400, L501.9520 #### [facility] [address] [facility] [place], [place], [id number] URIC ACID Collected: 10/17/2018 Status: F Source: [place] 10:48 AM [facility] REPOSITORY TYPE CODE TESTS RESULT OUT OF RANGE REFERENCE UNITS LAB L501.1400 2.6-6.0 mg/dL Normal URIC 5.8 Result Comment: The drugs N-Acetylcysteine and Metamizole may falsely depress this assay. Performed By: #### L500.4050, L501.1400, L501.9520 #### [facility] [address] [place], [place], [id number] THYROID STIM HORMONE Collected: 10/17/2018 Status: F Source: [place] (TSH) 10:48 AM [facility] REPOSITORY TYPE CODE TESTS RESULT OUT OF RANGE REFERENCE UNITS LAB L501.9520 0.358-3.74 uIU/mL High TSH 4.03 Performed By: #### L500.4050, L501.1400, L501.9520 #### [facility] [address] [place], [address] VITAMIN D,25 HYDROXY Collected: 10/17/2018 Status: F Source: [place] 10:48 AM [facility] REPOSITORY TYPE CODE TESTS RESULT OUT OF RANGE REFERENCE UNITS LAB L506.1000 29.95-100.01 ng/mL Normal Vitamin D 30.5 25-OH Result Comment: Vitamin D 25(OH) Status Range Deficiency <20 ng/mL (50nmol/L) Insuffciency 20 - 30 ng/mL (50 - 75 nmol/L) Sufficiency 30 - 100 ng/mL (75 - 250 nmol/L) Toxicity >100 ng/mL (>250 nmol/L) Performed By: #### L506.1000 #### [facility] [address] [facility] [address] [facility] [place], [address] EMERGENCY DEPARTMENT Observed: 10/05/2018 Status: F Source: [place] SUMMARY 8:34 PM [facility] REPOSITORY [facility] Medical Records Department [address] [place] [address] Emergency Department Summary 10/05/18 1503 MR#: [id number] Acct: [id number] Name: SHANNAN GODWIN Rep #: [id number] : 1945 72 From: Bertram Lord MD PCP: Toñito VERA,Beltran Francois Status: DEP ER - ER Visit Summary Date of Service: 10/05/18 Chief Complaint: Nausea vomiting diarrhea History of Present Illness: The patient is a 72 F presents with nausea and vomiting as well as loose stools that started about 2 hours ago after eating lunch. She had mild abdominal cramping but she denies any abdominal pain currently. She feels lightheaded, denies chest pain shortness of breath dysuria. She has not had any recent antibiotics or recent hospitalization no recent travel. Physical Examination: Not appear in acute distress. Slightly dry mucous membranes, no obvious facial deformity No C-spine tenderness supple neck. Regular rate and rhythm without any obvious murmurs Clear lungs bilaterally speaking in full sentences without any obvious respiratory distress Abdomen soft and currently nontender no guarding or rebound Moves all extremities without any difficulty or pain. Skin does not show any obvious rashes or lesions, no trauma. Alert oriented 3 with no gross focal deficit Emergency Department Course and Treatment: Patient appears well, she significantly improved after IV fluids. Her workup is unremarkable, she has had 3 hours of basically nausea and vomiting and one episode of loose stools. She has no abdominal pain. I will discharge in stable condition. If she develops abdominal pain if she develops right lower quadrant pain or fever chills she needs to return at this time she appears well and will be discharged with symptomatic treatment, basically antiemetics. Discharge stable condition Impression: Nausea vomiting This note was generated with [employer] dictation software. It may contain incorrect words, spelling, and punctuation that were not noted in review of the chart prior to signing ED Disposition - Plan for ED Patient: Disposition: Home or Assisted Living Chief Complaint: Nausea/Vomiting/Diarrhea Instructions: ED Gastroenteritis Vs Food Poison Prescriptions: Ondansetron [Zofran Odt] 4 mg PO Q8H PRN PRN #10 tab PRN Reason: Nausea Referrals: Beltran Sibley Chi, MD [Primary Care Provider] - 3-5 Days What to do if you have Problems For any increased pain, shortness of breath, bleeding, nausea or vomiting, chest pain, or any unexpected problems, contact your Primary Care Provider. Call [facility] ([phone]) or report to the closest Emergency Room. Call 911 if necessary. 10/05/182033 <Electronically signed by Bertram oLrd MD> Date Bertram Lord MD Cosigner Signature (If Indicated): Date CC: Beltran Sibley MD CBC W/DIFF, AUTOMATED Collected: 10/05/2018 Status: F Source: [place] 5:12 PM [facility] REPOSITORY TYPE CODE TESTS RESULT OUT OF RANGE REFERENCE UNITS LAB L100.1000 4.4-11.0 K/mm3 Low WBC 4.3 LAB L100.1200 4.2-5.4 M/mm3 Low RBC 4.06 LAB L100.1300 12.0-15.0 g/dl Low HGB 11.7 LAB L100.1400 37-47 % Normal HCT 37.0 LAB L100.1500 81-99 fL Normal MCV 91.1 LAB L100.1600 27.0-32.0 pg Normal MCH 28.8 LAB L100.1700 32-36 g/gl Low MCHC 31.6 LAB L100.1810 11.6-14.6 % Normal RDW CV 14.1 LAB L100.1820 35.1-43.9 fl High RDW SD 46.4 LAB L100.1900 150-450 K/mm3 Low PLT 137 LAB L100.2000 6.2-12.0 fl Normal MPV 11.1 LAB L100.2100 47-70 % High NEUT% 70.9 LAB L100.2200 19-41 % Low LY% 18.0 LAB L100.2300 0-10 % Normal MONO% 9.9 LAB L100.2400 0-5 % Normal EO% 0.5 LAB L100.2500 0-1 % Normal BASO% 0.5 LAB L100.2550 0.0-0.9 % Normal IM GRAN % 0.200 Result Comment: IG% - Immature Granulocytes (promyelocytes, myelocytes and metamyelocytes) > 1% indicates that a LEFT SHIFT is Present. LAB L100.2620 2.0-7.7 X10 3/uL Normal Absolute Neut 3.1 LAB L100.2720 0.83-4.51 X10 3/ul Low Absolute Lymph 0.78 Performed By: #### L100.0100 #### [facility] [address] [place], [address] COMPREHENSIVE METABOLIC Collected: 10/05/2018 Status: F Source: [place] [facility] 5:12 PM [facility] REPOSITORY TYPE CODE TESTS RESULT OUT OF RANGE REFERENCE UNITS LAB L501.0100 74-106 mg/dL High GLU 113 Result Comment: Fasting Glucose result from 100 to 125 mg/dL suggests IMPAIRED HOMEOSTASIS per A.D.A. criteria. Please note revised GLUCOSE reference range effective 2017. LAB L501.1000 7-18 mg/dL Normal BUN 18 LAB L501.1100 0.55-1.02 mg/dL Normal CREAT,SERUM 0.55 Result Comment: The validity of the calculated GFR AND GFRAA in patients over 70 years has not been determined. Clinical correlation is essential. LAB L501.1110 >60 mL/min Normal EST GFR 114 Result Comment: Non- GFR Calc LAB L501.1115 >60 mL/min Normal EST GFR - AA 138 Result Comment: GFR Calc LAB L501.1255 ml/min Normal Estimated CRCL 35.99 LAB L501.1300 10-20 RATIO High BUN/CRE 32.5 LAB L501.1500 6.4-8. g/dL Low 2 T PROT 5.9 LAB L501.1800 3.2-5. g/dL Low 0 ALB 2.8 LAB L501.1950 2.2-4. g/dL Normal 2 GLOB 3.1 LAB L501.2000 0.9-2. RATIO Normal 4 A/G 0.9 LAB L501.2200 8.5-10 mg/dL Low .1 CA 7.5 LAB L501.4100 15-37 U/L Normal AST 23 Result Comment: Slight Hemolysis, Result may be falsely increased. LAB L501.4305 45-117 U/L Normal ALK P 72 LAB L501.4405 13-56 U/L Normal ALT 18 LAB L501.4600 0.20-1.00 mg/dL Normal T BILI 0.70 LAB L501.5300 136-145 mmol/L Normal NA 140 LAB L501.5600 3.5-5.1 mmol/L Normal K 3.8 Result Comment: Slight Hemolysis, Result may be falsely increased. LAB L501.5900 98-107 mmol/L High CL 111 LAB L501.6100 21.0-32.0 mmol/L Normal CO2 23.0 LAB L501.6200 5-15 Normal 6 GAP Performed By: #### L500.4050 #### [facility] [address] [place], [address] Observed: 09/08/2018 Status: F Source: [place] CULTURE, URINE 4:41 PM [facility] REPOSITORY Urine Culture ORGANISM 1: Mixed Gram Positive Organisms [place] Count 1000-10,000 MIX CULTURE Mixed contaminants. Submit a new specimen if indicated. Performed By: #### M100.0650 #### [facility] [place], [address] CBC W/DIFF, AUTOMATED Collected: 09/08/2018 Status: F Source: [place] 4:31 PM [facility] REPOSITORY TYPE CODE TESTS RESULT OUT OF RANGE REFERENCE UNITS LAB L100.1000 4.4-11.0 K/mm3 Normal WBC 9.2 LAB L100.1200 4.2-5.4 M/mm3 Normal RBC 4.75 LAB L100.1300 12.0-15.0 g/dl Normal HGB 14.2 LAB L100.1400 37-47 % Normal HCT 43.5 LAB L100.1500 81-99 fL Normal MCV 91.6 LAB L100.1600 27.0-32.0 pg Normal MCH 29.9 LAB L100.1700 32-36 g/gl Normal MCHC 32.6 LAB L100.1810 11.6-14.6 % Normal RDW CV 13.7 LAB L100.1820 35.1-43.9 fl High RDW SD 45.2 LAB L100.1900 150-450 K/mm3 Normal PLT 238 LAB L100.2000 6.2-12.0 fl High MPV 12.1 LAB L100.2100 47-70 % Normal NEUT% 67.1 LAB L100.2200 19-41 % Normal LY% 21.8 LAB L100.2300 0-10 % Normal MONO% 7.2 LAB L100.2400 0-5 % Normal EO% 3.6 LAB L100.2500 0-1 % Normal BASO% 0.2 LAB L100.2550 0.0-0.9 % Normal IM GRAN % 0.100 Result Comment: IG% - Immature Granulocytes (promyelocytes, myelocytes and metamyelocytes) > 1% indicates that a LEFT SHIFT is Present. LAB L100.2620 2.0-7.7 X10 3/uL Normal Absolute Neut 6.2 LAB L100.2720 0.83-4.51 X10 3/ul Normal Absolute Lymph 2.00 Performed By: #### L100.0100 #### [facility] [address] [place], [place], [address] COMPREHENSIVE METABOLIC Collected: 09/08/2018 Status: F Source: [place] 4:31 PM [facility] REPOSITORY TYPE CODE TESTS RESULT OUT OF RANGE REFERENCE UNITS LAB L501.0100 74-106 mg/dL Normal GLU 85 Result Comment: Please note revised GLUCOSE reference range effective 2017. LAB L501.1000 7-18 mg/dL High BUN 31 LAB L501.1100 0.55-1.02 mg/dL Normal CREAT,SERUM 0.71 Result Comment: The validity of the calculated GFR AND GFRAA in patients over 70 years has not been determined. Clinical correlation is essential. LAB L501.1110 >60 mL/min Normal EST GFR 85 Result Comment: Non- GFR Calc LAB L501.1115 >60 mL/min Normal EST GFR - AA 103 Result Comment: GFR Calc LAB L501.1300 10-20 RATIO High BUN/CRE 43.5 LAB L501.1500 6.4-8.2 g/dL T Normal PROT 6.9 LAB L501.1800 3.2-5.0 g/dL Normal ALB 3.6 LAB L501.1950 2.2-4.2 g/dL Normal GLOB 3.3 LAB L501.2000 0.9-2.4 RATIO Normal A/G 1.1 LAB L501.2200 8.5-10.1 mg/dL CA Normal 9.0 LAB L501.4100 15-37 U/L Low AST 14 LAB L501.4305 45-117 U/L Normal ALK P 76 LAB L501.4405 13-56 U/L Low ALT < 6 LAB L501.4600 0.20-1.00 mg/dL T Normal BILI 0.60 LAB L501.5300 136-145 mmol/L NA Normal 140 LAB L501.5600 3.5-5.1 mmol/L K Normal 4.5 LAB L501.5900 98-107 mmol/L CL Normal 106 LAB L501.6100 21.0-32.0 mmol/L Normal CO2 25.0 LAB L501.6200 5-15 Normal GAP 9 Performed By: #### L500.4050, L501.9520 #### [facility] [address] [place], [address] THYROID STIM HORMONE Collected: 09/08/2018 Status: F Source: [place] (TSH) 4:31 PM [facility] REPOSITORY TYPE CODE TESTS RESULT OUT OF RANGE REFERENCE UNITS LAB L501.9520 0.358-3.74 uIU/mL Normal TSH 0.77 Performed By: #### L500.4050, L501.9520 #### [facility] [address] [place], [address] PT D/C SUMMARY (1) Observed: 08/14/2018 Status: F Source: [place] 3:32 PM [facility] REPOSITORY [facility] [address] [place], [place] [address] Fax REHABILITATION SERVICES DISCHARGE SUMMARY MR#: [id number] Acct: [id number] Name: SHANNAN [place] Rep #: [id number] : 1945 72 From: Juan Schwartz PT, ATC Referring Dr.: Beltran Sibley MD Status: REG RCR Insurance: [employer] MED[employer] SELF PAY INSURANCE HP - PT D/C Summary It has been my pleasure to treat SHANNAN GODWIN under orders from Beltran Sibley, for the diagnosis of Gait difficulty for a total of 24 visit(s). Discharge Date: Please see the following information for a summary of their discharge status. - Subjective Subjective: Pt reports she is in pain today from the weather. - Pain BILAT ARMS Pain Intensity (Out of 10): 7 hips Pain Intensity (Out of 10): 3 - Overall Improvement % Improvement: 50 - Objective Objective/Function: B LE MMT: 5/5 throughout. Pt is able to walk greater than 340' with WW without difficulty. Pt is I with HEP. Rx goals achieved - Goals Goal 1:: Increase B LE strength x 1 grade to aid with IADL's Goal Progress: Goal Met Goal 2:: Pt will be able to ambulate 340' with LRD to aid with community ambulation Goal Progress: Goal Met Goal 3:: I with HEP Goal Progress: Goal Met - Plan Plan: Discharge - D/C Information If there are questions or concerns regarding this patient's physical therapy, please feel free to call me at [phone]. Thank you for the referral of this patient. Sincerely, Juan Schwartz PT, <Electronically signed by Juan Schwartz PT, ATC> 08/14/18 1532 CC: Joe Gaytan MD; Beltran Sibley MD [facility] Signed RE-EVALUATION - PT (1) Observed: 07/23/2018 Status: F Source: [place] 3:58 PM [facility] REPOSITORY [facility] [address] [place] [address]. [address] [place] [address] Fax REEVALUATION / MEDICARE RECERTIFICATION PHYSICAL THERAPY MR#: [id number] Acct: [id number] Name: SHANNAN [place] Rep #: [id number] : 1945 72 From: Juan Schwartz PT, ATC Referring Dr.: Beltran Sibley MD Status: REG RCR Insurance: [employer] SELF PAY INSURANCE Beltran Sibley, It has been my pleasure to treat SHANNAN GODWIN over the last 19 visits for Gait difficulty. Please see the progress note below for an update on the physical therapy plan of care! Subjective: Pt is very fatigued this date. Pt reports the heat is killing me Objective/Function: B LE grossly 5/5 with exception of L knee flex= 4-/5 and R knee ext 4/5. Pt was able to ambulate 120' with cane until needing to sit down and rest. Pt is progressing well with HEP Plan Plan: Cont 2x's per week for 3 weeks Goals Goal 1:: Increase B LE strength x 1 grade to aid with IADL's Goal Time Frame: 6-8 Weeks Goal Progress: Progressing Goal 2:: Pt will be able to ambulate 340' with LRD to aid with community ambulation Goal Time Frame: 6-8 Weeks Goal Progress: Progressing Goal 3:: I with HEP Goal Time Frame: 4-6 Weeks Goal Progress: Progressing Anticipated Interventions Patient/Client Instruction: Educate patient on: Condition, Plan of Care For the Purpose of:: To improve self management Therapeutic Exercise to Include: Strength training, Endurance training, Balance training, Gait and locomotor training For the Purpose of:: To improve muscle performance and motor function, To increase tolerance to activity/condition/position Please do not hesitate to contact me at [phone] by phone or if you have questions or concerns regarding this new plan of care! Sincerely, Juan Schwartz, PT, <Electronically signed by Juan Schwartz PT, ATC> 07/23/18 1558 CC: Joe Gaytan MD; Beltran Sibley MD [facility] Signed For Medicare only, by signing this I certify the plan of care. Physicians Signature Date PT COMMUNICATION Observed: 06/17/2018 Status: F Source: [place] 8:53 AM [facility] REPOSITORY [facility] [address] [place] [address] Fax REHABILITATION SERVICES PROGRESS NOTE MR#: [id number] Acct: [id number] Name: SHANNAN [place] Rep #: [id number] : 1945 72 From: Lala Abarca [facility] Referring Dr.: Beltran Sibley MD Status: REG RCR Insurance: [facility] MEDICARE SELF PAY INSURANCE PT Communication Note 06/13/[address] Beltran Sibley , Thank you for the referral of Shannan Godwin to out clinic. The pt was tested on our [employer] Balance Master today and enclosed are the patients test results. On the Sensory Organization Test (SOT): the pt had some trouble with the use of her vestibular and visual systems to help her maintain her balance. She uses her ankles for strategy analysis which is higher level and her center of gravity alignment is within normal limits. On the Motor Control Test (MCT): the pt had good overall reaction time. On the Limits of Stability Test (LOS): the pt had some difficulty with weight shifting forward, backward, and slightly to the left. At this point in time, I will see the pt a couple of times per week for a few weeks to work on VOR exercises, vestibular inputs, and weight shifting activities. Sincerely, Lala Abarca Contact Information 06/17/18 0853 <Electronically signed by Lala KHAN> Date Lala KHAN Cosigner Signature (if applicable): Date CC: Joe Gaytan MD; Beltran Sibley MD Signed For Medicare only, by signing this I certify the plan of care. Physicians Signature Date RE-EVALUATION - PT (1) Observed: 06/16/2018 Status: F Source: [place] 5:16 PM [facility] REPOSITORY [facility] [address] [place] [address] Fax REEVALUATION / MEDICARE RECERTIFICATION PHYSICAL THERAPY MR#: [id number] Acct: [id number] Name: SHANNAN GODWIN Rep #: [id number] : 1945 72 From: Juan Schwartz PT, ATC Referring Dr.: Beltran Sibley MD Status: REG RCR Insurance: [facility] MEDICARE SELF PAY INSURANCE Beltran Sibley, It has been my pleasure to treat SHANNAN GODWIN over the last 9 visits for Gait difficulty. Please see the progress note below for an update on the physical therapy plan of care! Subjective: Pt reports she knows she still has balance issues. Pt feels as though she would benefit from more PT Objective/Function: B LE strength now 4/5 throughout. Pt is able to ambulate 680' with WW and CGAx1 until being fatigued. Pt is able to ambulate 170' with no AD and cgax1. Pt is progressing well toward Rx goals Plan Plan: Continue to progress as paulina Goals Goal 1:: Increase B LE strength x 1 grade to aid with IADL's Goal Time Frame: 6-8 Weeks Goal Progress: Progressing Goal 2:: Pt will be able to ambulate 340' with LRD to aid with community ambulation Goal Time Frame: 6-8 Weeks Goal 3:: I with HEP Goal Time Frame: 4-6 Weeks Goal Progress: Progressing Anticipated Interventions Patient/Client Instruction: Educate patient on: Condition, Plan of Care For the Purpose of:: To improve self management Therapeutic Exercise to Include: Strength training, Endurance training, Balance training, Gait and locomotor training For the Purpose of:: To improve muscle performance and motor function, To increase tolerance to activity/condition/position Please do not hesitate to contact me at [phone] by phone or if you have questions or concerns regarding this new plan of care! Sincerely, Juan Schwartz, PT, <Electronically signed by Juan Schwartz PT, ATC> 06/16/18 1716 CC: Joe Gaytan MD; Beltran Sibley MD [facility] Signed For Medicare only, by signing this I certify the plan of care. Physicians Signature Date INITIAL EVALUATION (2) Observed: 06/06/2018 Status: F Source: [place] - PT 2:04 PM [facility] REPOSITORY [facility] [address] [place] [address]. [address] [place] [address] Fax REHABILITATION SERVICES INITIAL EVALUATION MR#: [id number] Acct: [id number] Name: TATOSHANNAN Zhou Rep #: [id number] : 1945 72 From: Lala Abarca MPT Referring Dr.: Beltran Sibley MD Status: REG RCR Insurance: [employer] MED[employer] SELF PAY INSURANCE Patient's Visit Information SHANNAN GODWIN is a 72 year old F referred to Physical Therapy by Beltran Sibley with a diagnosis of BPPV. Date of Evaluation: 06/06/18 Physical Therapist: Lala Abarca - Visit Plan Frequency: 1-2x /Week Duration: 2 Weeks Plan: 1-2X/ week for re-testing of Hallpike and Eply if needed and possible Yusuf-daroff exercises if needed for home - Subjective Subjective: Dizziness started several weeks ago and has been off and on dizziness since Nov. Pt reports that she gets dizzy when turns her head or when gets up too soon. Did not notice too much when she fell in Dec. When she is in bed she gets dizzy sometimes when she rolls to the R. She is on BP med ( on 3 X / day to avoid orthostatic hypotension). Pt thinks that med has helped a little bit. The room spins when she rolls to the R side and lasts a couple of minutes. Now pt thinks rolling to the L also increases dizziness. Pt is not dizziness right now. Possibly overall dizziness getting better. Pt is currently being seen here in PT for Parkinson's.... Fallen 6-7 times since Nov. She uses the walker since the Dr said to use the walker (3-4 weeks ago). Before that she was getting around ok in the house. - Objective Objective: - Hallpike to the R for nystagmus and slight brief dizziness (? PB). + Hallpike to the L for nystagmus and dizziness that lasted about 26 seconds. Treated with L EPLY. Re-tested L Hallpike and pt was negative for nystagmus but positive for slight dizziness that lasted approx 10 seconds. Re-treated with L EPLY. Re-test L hallpike for 3rd time and was negative for dizziness and nystagmus. Advised pt to avoid prolonged looking down through tonight. - Goals Goal 1:: Abolish dizziness with turning in bed Goal Time Frame: 2 Weeks Goal 2:: I HEP (Yusuf daroff) if needed Goal Time Frame: 2 Weeks - Rehabilitation Potential Rehabilitation Potential: Good - Anticipated Interventions Patient/Client Instruction: Educate patient on: Condition, Plan of Care For the Purpose of:: To improve ability to perform ADL's, To improve ability of physical actions for home/community/work/leisure, To improve gait and locomotor functions, To improve balance Therapeutic Exercise to Include: Neuromotor development For the Purpose of:: To improve ability to perform ADL's, To increase tolerance to activity/condition/position, To improve gait and locomotor functions, To improve balance, To improve safety with gait Manual Therapy Techniques to Include: Other Comment: Eply For the Purpose of:: To increase tolerance to activity/condition/position, To improve ability of physical actions for home/community/work/leisure Thank you for the opportunity to evaluate your patient. For Medicare and Medicare HMO plans, please review the plan of care and approve it. It will need to be FAXED BACK to us at [phone] for Medicare purposes. Please let me know if there are questions or concerns regarding this plan of care. Physician Signature: Date: <Electronically signed by Lala Abarca MPT> 06/06/18 1404 CC: Beltran Sibley MD Signed For Medicare only, by signing this I certify the plan of care. Physicians Signature Date THYROID STIM HORMONE Collected: 06/02/2018 Status: F Source: [place] (TSH) 3:05 PM [facility] REPOSITORY TYPE CODE TESTS RESULT OUT OF RANGE REFERENCE UNITS LAB L501.9520 0.358-3.74 uIU/mL Normal TSH 0.59 Performed By: #### L501.9520 #### [facility] [address] [place], [address] 12 LEAD ELECTROCARDIOGRAM Observed: 05/22/2018 Status: F Source: [place] 2:30 PM [facility] REPOSITORY [facility] Cardiovascular Services [address] [place] [address] 12 Lead EKG 05/20/18 1635 MR#: [id number] Acct: [id number] Name: SHANNAN GODWIN Rep #: [id number] : 1945 72 From: Cipriano Burks MD Attending Dr: Status: DEP ER Ordering Dr: Dami Royal DO Date: 05/20/18 Location: ED Sex: F C Admitted: Test Reason : Blood Pressure : / mmHG Vent. Rate : 054 BPM Atrial Rate : 054 BPM P-R Int : 158 ms QRS Dur : 082 ms QT Int : 452 ms P-R-T Axes : 077 041 065 degrees QTc Int : 428 ms Sinus bradycardia with sinus arrhythmia Otherwise normal ECG Confirmed by KAYDEN VERA, CIPRIANO ([id number]), editor producer RUBI HANLEY ([id number]) on 05/22/2018 2:29:43 PM Referred By: KYUNG Confirmed By:CIPRIANO BURKS MD 05/22/18 1429 Date Cipriano Burks MD CC: Dami Royal DO; Beltran Sibley MD Signed EMERGENCY DEPARTMENT Observed: 05/20/2018 Status: F Source: [place] SUMMARY 11:36 PM [facility] REPOSITORY [facility] Medical Records Department [address] [place] [address] Emergency Department Summary 05/20/18 1616 MR#: [id number] Acct: [id number] Name: SHANNAN GODWIN Rep #: [id number] : 1945 72 From: Dami Royal DO PCP: Beltran Sibley MD, Chi Status: DEP ER - ER Visit Summary Date of Service: 05/20/18 Chief Complaint: Head injury History of Present Illness: The patient is a 72 F who states that she was in bed this afternoon (having just came back from [place]) and around 1500 needed to urinate. The patient got up and felt dizzy/lightheaded but grabbed her walker and continued on eventually passed out. She struck the back of her head on the ground. Possible loss of consciousness. She denies any other injuries other than a contusion to her scalp. No chest pain or shortness of breath. She has a history of orthostatic hypotension. Physical Examination: Afebrile vital signs are stable Gen: Well-nourished well-developed Head: Normocephalic left occipital hematoma Eyes: Perrl EOMI ENT: TMs clear no rhinorrhea moist mucous membranes Neck: Supple no lymphadenopathy no JVD nontender CVS: Regular rate rhythm no murmurs normal S1-S2 Respiratory: No distress clear to auscultation bilaterally chest nontender Abdomen: Soft nontender nondistended normal bowel sounds no masses Back: Nontender Extremity: Nontender no edema Skin: Normal color no rash Neuro: alert orientated 3 CN II-XII intact normal strength sensation reflexes cerebellar Psych: Normal affect normal mood Test Results: Labs appear at its baseline. CT brain showed no hemorrhage. EKG sinus at a rate of 54. Emergency Department Course and Treatment: Orthostatics were negative. Patient feels good and wishes to go home which I feel is very reasonable. I think the patient most likely suffered a degree of hypotension from getting up too fast coupled with a strong urge to urinate possible vagal reaction. Impression: 1. Syncope secondary to orthostatic hypotension 2. Scalp hematoma This note was generated with [employer] dictation software. It may contain incorrect words, spelling, and punctuation that were not noted in review of the chart prior to signing ED Disposition - Plan for ED Patient: Disposition: Home or Assisted Living Chief Complaint: Syncope Instructions: ED Hypotension Orthostatic Referrals: Beltran Sibley Chi, MD [Primary Care Provider] - 1 Week What to do if you have Problems For any increased pain, shortness of breath, bleeding, nausea or vomiting, chest pain, or any unexpected problems, contact your Primary Care Provider. Call [facility] ([phone]) or report to the closest Emergency Room. Call 911 if necessary. 05/20/18 7487 <Electronically signed by Dami Royal DO> Date [facility] Royal DO [facility] Signature (If Indicated): Date CC: Beltran Sibley MD URINALYSIS, COMPLETE Collected: 05/20/2018 Status: F Source: [place] 4:33 PM [facility] REPOSITORY Order Comment: How was Urine Obtained? CATHETER SPECIMEN TYPE CODE TESTS RESULT OUT OF RANGE REFERENCE UNITS LAB L400.3000 Yellow COLOR Normal Yellow LAB L400.3050 Clear Normal CLARITY Clear LAB L400.3200 Normal mg/dl Normal GLUCOSE, UR Normal LAB L400.3300 Negative mg/dL Normal BILIRUBIN URINE Negative LAB L400.3400 Negative mg/dl Normal KETONE UR Negative LAB L400.3465 1.002-1.030 Normal SP.GR. DIPSTX 1.010 LAB L400.3550 5.0 - 8.0 pH UR Normal 6.5 LAB L400.3600 Negative mg/dl PROT Normal DIPSTX Negative LAB L400.3700 Normal mg/dl Normal UROBILI Normal LAB L400.3750 Negative Normal NITRITE UR Negative LAB L400.3780 Negative /ul Normal OCCULT BLOOD-UR Negative LAB L400.3800 Negative /ul LEUK Normal ESTERASE Negative LAB L400.4050 0-5 /hpf WBC 0 Normal SEEN LAB L400.4100 0-5 /hpf 0 Normal RBC-UA SEEN LAB L400.4150 5-10 /hpf SQUAM 0 Normal EPI SEEN LAB L400.4300 None Seen /hpf 0 Normal BACTERIA SEEN LAB L400.4350 <or=2+ /hpf 0 Normal MUCUS, URINE SEEN Performed By: #### L400.0001 #### [facility] [address] [place], [place], [address] BRAIN/HEAD WITHOUT Observed: 05/20/2018 Status: F Source: [place] CONTRAST 4:15 PM [facility] REPOSITORY [facility] Imaging Services [address] [place] [address] Brain/Head without Contrast MR#: [id number] Acct: [id number] Name: SHANNAN GODWIN Zhou Rep #: [id number] : 1945 F 72 From: Juan Grijalva MD PCP: Beltran Sibley MD, Chi Status: REG ER Study: Brain/Head without Contrast Date of Exam: 05/20/18 Exam# [id number] Ordering Dr: Dami Royal DO STUDY: CT BRAIN WITHOUT CONTRAST REASON FOR EXAM: Female, 72 years old. Syncope today, hit head, dizzy. Hx hypertension and diabetes. RADIATION DOSAGE (If Supplied By Facility): CTDIvol = ( 60.81 ) mGy, DLP = ( 998.67 ) mGycm TECHNIQUE: Transaxial CT imaging of the brain was performed without administration of intravenous contrast material. COMPARISON: Study done earlier today. FINDINGS: Soft tissue swelling of the left posterior scalp. Improvement in the previously noted left lateral scalp laceration. There is no underlying fracture. There are calcifications around the carotid artery. These are noted in the cavernous carotid arteries. There is a partially calcified mass along the left extra-axial space. This is likely a meningioma. There is mild cerebral atrophy with widening of the extra- axial spaces and ventricular dilatation. There are areas of decreased attenuation within the white matter tracts of the supratentorial brain, consistent with microvascular disease changes. Normal basal ganglia and thalami. Normal brainstem. There is mild cerebellar atrophy. There is no intracranial hemorrhage. There are no findings of an acute ischemic infarction. Normal visualized paranasal sinuses. CT/Brain/Head without Contrast IMPRESSION: Chronic involutional changes of the brain. Soft tissue swelling of the left posterior scalp. There is no underlying fracture.Improvement in the previously noted left lateral scalp laceration. . Electronically Signed: Juan Grijalva MD at 17:50 EDT , Service support , CC: Dami Royal DO; Beltran Sibley MD Band Cutter: Signed CBC W/DIFF, AUTOMATED Collected: 05/20/2018 Status: F Source: [place] 4:08 PM [facility] TYPE CODE TESTS RESULT OUT OF RANGE REFERENCE UNITS LAB L100.1000 4.4-11.0 K/mm3 Normal WBC 5.7 LAB L100.1200 4.2-5.4 M/mm3 Normal RBC 4.36 LAB L100.1300 12.0-15.0 g/dl Normal HGB 12.8 LAB L100.1400 37-47 % Normal HCT 39.7 LAB L100.1500 81-99 fL Normal MCV 91.1 LAB L100.1600 27.0-32.0 pg Normal MCH 29.4 LAB L100.1700 32-36 g/gl Normal MCHC 32.2 LAB L100.1810 11.6-14.6 % Normal RDW CV 14.4 LAB L100.1820 35.1-43.9 fl High RDW SD 48.3 LAB L100.1900 150-450 K/mm3 Normal PLT 168 LAB L100.2000 6.2-12.0 fl Normal MPV 11.7 LAB L100.2100 47-70 % Normal NEUT% 69.3 LAB L100.2200 19-41 % Low LY% 17.9 LAB L100.2300 0-10 % Normal MONO% 8.4 LAB L100.2400 0-5 % Normal EO% 4.0 LAB L100.2500 0-1 % Normal BASO% 0.2 LAB L100.2550 0.0-0.9 % Normal IM GRAN % 0.200 Result Comment: IG% - Immature Granulocytes (promyelocytes, myelocytes and metamyelocytes) > 1% indicates that a LEFT SHIFT is Present. LAB L100.2620 2.0-7.7 X10 3/uL Normal Absolute Neut 4.0 LAB L100.2720 0.83-4.51 X10 3/ul Normal Absolute Lymph 1.03 Performed By: #### L100.0100 #### [facility] [address] [place], [place], [address] BASIC METABOLIC Collected: 05/20/2018 Status: F Source: [place] PROFILE (BMP) 4:08 PM [facility] REPOSITORY TYPE CODE TESTS RESULT OUT OF RANGE REFERENCE UNITS LAB L501.0100 74-106 mg/dL Low GLU 70 Result Comment: Please note revised GLUCOSE reference range effective 2017. LAB L501.1000 7-18 mg/dL High BUN 25 LAB L501.1100 0.55-1.02 mg/dL Normal CREAT,SERUM 0.58 Result Comment: The validity of the calculated GFR AND GFRAA in patients over 70 years has not been determined. Clinical correlation is essential. LAB L501.1110 >60 mL/min Normal EST GFR 109 Result Comment: Non- GFR Calc LAB L501.1115 >60 mL/min Normal EST GFR - AA 132 Result Comment: GFR Calc LAB L501.1255 ml/min Normal Estimated CRCL 39.63 LAB L501.1300 10-20 RATIO High BUN/CRE 43.4 LAB L501.2200 8.5-10 mg/dL Normal .1 CA 9.1 LAB L501.5300 136-14 mmol/L Normal 5 NA 140 LAB L501.5600 3.5-5. mmol/L Normal 1 K 4.0 LAB L501.5900 98-107 mmol/L Normal CL 106 LAB L501.6100 21.0-3 mmol/L Normal 2.0 CO2 29.0 LAB L501.6200 5-15 Normal GAP 5 Performed By: #### L500.2500, L501.4010 #### [facility] [address] [place], [address] TROPONIN-I Collected: 05/20/2018 Status: F Source: [place] 4:08 PM [facility] REPOSITORY TYPE CODE TESTS RESULT OUT OF RANGE REFERENCE UNITS LAB L501.4010 <0.045 ng/mL Normal < 0.015 TROPONIN-I Result Comment: TROPONIN-I EXPECTED VALUES <0.045 Negative 0.045 - 0.590 Consistent with Cardiac Damage > OR = 0.600 Critical Value Not every elevated troponin is indicative of NH. These values should be used with clinical judgement in examining the patient's clinical picture for diagnosis. To establish a diagnosis of NH versus myocardial injury, there must be a demonstrated rise and/or fall in the troponin values, in addition to ischemic symptoms, EKG changes, new regional wall motion abnormality, and/or angiographical evidence. PLEASE NOTE: REFERENCE RANGES EDITED 18 Performed By: #### L500.2500, L501.4010 #### [facility] [address] [place], [address] INITAL EVALUATION (1) Observed: 05/01/2018 Status: F Source: [place] - PT 6:13 PM [facility] REPOSITORY [facility] [address] [place] [address] Fax REHABILITATION SERVICES INITIAL EVALUATION MR#: [id number] Acct: [id number] Name: SHANNAN GODWIN Rep #: [id number] : 1945 72 From: Juan Schwartz PT, ATC Referring Dr.: Beltran Sibley MD Status: REG RCR Insurance: [employer] MED[employer]ARE SELF PAY INSURANCE Patient's Visit Information SHANNAN GODWIN is a 72 year old F referred to Physical Therapy by Beltran Sibley with a diagnosis of Gait difficulty. Date of Evaluation: 05/01/18 Physical Therapist: Juan Schwartz PT, - Visit Plan Frequency: 3x /Week Duration: 6-8 weeks Plan: B LE strengthening, balance and proprio, gait training with cane, nustep, and HEP - Subjective Subjective: Pt reports her walking has been getting worse over the past 6 mos. Pt reports she was Dx'd with Parkinsons disease on her last Dr visit, which she was actually surprised to hear. Pt reports she is very weak, and her stamina is very low. Pt reports she doesn't like exercise, and she has noticed a difference with her balance lessening. Pt reports she has OA in her shoulders, but no other pain. Pt reports she has had 6 falls since November. Pt reports she has good feeling in her feet, but does get tingling sensations at times. - Objective Neuro: B LE sensation is WNL to light touch. B patellar tendon reflex= 2/3. MMT: B hip abd and add= 5/5. All other measurements 4-/5. Balance: LS EO/EC pt is very steady for 60 sec ea. Pt is unable to stand greater than 1 sec for SL. Gait: Pt is able to ambulate for 130 with Std cane, but is very unsteady. Pt is very steady with ambulating 130 ft with WW - Goals Goal 1:: Increase B LE strength x 1 grade to aid with IADL's Goal Time Frame: 6-8 Weeks Goal 2:: Pt will be able to ambulate 340' with LRD to aid with community ambulation Goal Time Frame: 6-8 Weeks Goal 3:: I with HEP Goal Time Frame: 4-6 Weeks - Rehabilitation Potential Physical Therapy Diagnosis: Pt has LE weakness and decreased balance secondary to Parkinsons disease Rehabilitation Potential: Good - Anticipated Interventions Patient/Client Instruction: Educate patient on: Condition, Plan of Care For the Purpose of:: To improve self management Therapeutic Exercise to Include: Strength training, Endurance training, Balance training, Gait and locomotor training For the Purpose of:: To improve muscle performance and motor function, To increase tolerance to activity/condition/position Thank you for the opportunity to evaluate your patient. For Medicare and Medicare HMO plans, please review the plan of care and approve it. It will need to be FAXED BACK to us at [phone] for Medicare purposes. Please let me know if there are questions or concerns regarding this plan of care. Physician Signature: Date: <Electronically signed by Juan Schwartz PT, ATC> 05/01/18 1813 CC: Beltran Sibley MD [facility] Signed For Medicare only, by signing this I certify the plan of care. Physicians Signature Date EMERGENCY DEPARTMENT Observed: 04/20/2018 Status: F Source: [place] SUMMARY 6:29 PM [facility] REPOSITORY [facility] Medical Records Department [address] [place] [address] Emergency Department Summary 04/20/18 1723 MR#: [id number] Acct: [id number] Name: SHANNAN GODWIN Rep #: [id number] : 1945 72 From: Sloan Rosen MD PCP: Toñito VERA,Beltran Francois Status: REG ER - ER Visit Summary Date of Service: 04/20/18 Chief Complaint: Head injury status post fall History of Present Illness: The patient is a 72 F who was on the commode. Uncertain whether she passed out versus loss of balance presents with laceration left parietal area. She does report being days. She complains of mild head discomfort. She denies any double vision, blurred vision loss of vision. She has multiple hearing. Denies trouble with speech or swallowing. She denies any neck pain. She denies paresthesia, anesthesia motors present time of the fall. She denies chest pain, palpitations or rapid heartbeat. She denies shortness of breath or difficulty breathing. She denies nausea or vomiting. She denies black or maroon stool. She has no urologic symptoms. Please read written note for complete detail Physical Examination: There is a laceration left parietal area that is 3-1/2-4 cm in length. There is no clinical findings of basal skull fracture. Pupils equal round reactive. Extra muscle intact. Sclera is anicteric and there is no soft conjunctival hemorrhage noted. There is no septal deviation hematoma. No pain the patient in the face. No TMJ tenderness and no evidence of malocclusion or trismus. Trachea is midline. There is no cervical spine tenderness. She has full active range of motion of her neck. Heart is regular without murmur, gallop or rub. S1 and S2 are normal. Lungs are clear to auscultation with good movement of air bilaterally. Abdomen is soft nontender. Is no pain the patient the pelvis. GCS is 15. Patient is alert and oriented 3. Motor is 5/5. Sensation is intact. DTRs are symmetric without clonus or Babinski. Cranial nerves II through XII are intact. Finger to nose to finger was performed adequately. Test Results: CT of the head reveals no fracture, subarachnoid hemorrhage, epidural or subdural. There is no intraparenchymal bleed noted either. There is calcification of the choroid plexus. Emergency Department Course and Treatment: Since patient is greater the age of 64 and had transient loss of consciousness per the Vincentian CT head rule radiologic imaging of the head i.e. CAT scan is indicated. Immunizations up-to-date. Once CAT scan has been performed and if there is no obvious injury will staple laceration. Treatment Plan: Patient's wound was anesthetized 1% lidocaine. The wound was cleansed with surgical Cleanse. A total of 6 fabian was placed. Disposition: Discharged to home with family Impression: 1. Closed head injury with transient loss of consciousness 2. 3.5 cm scalp laceration 3. Fall unknown cause initial encounter This note was generated with [employer] dictation software. It may contain incorrect words, spelling, and punctuation that were not noted in review of the chart prior to signing ED Disposition - Plan for ED Patient: Disposition: Home or Assisted Living Chief Complaint: Fall Instructions: ED Fall Uncertain Cause, ED Laceration Scalp Stitch Or Stap, ED Head Injury Closed Referrals: Beltran Sibley Chi, MD [Primary Care Provider] - 7 Days for suture removal What to do if you have Problems For any increased pain, shortness of breath, bleeding, nausea or vomiting, chest pain, or any unexpected problems, contact your Primary Care Provider. Call [facility] ([phone]) or report to the closest Emergency Room. Call 911 if necessary. 04/20/18 2649 <Electronically signed by Sloan Rosen MD> Date Sloan Rosen MD Cosigner Signature (If Indicated): Date CC: Beltran Sibley MD BRAIN/HEAD WITHOUT Observed: 04/20/2018 Status: F Source: [place] CONTRAST 5:22 PM [facility] REPOSITORY [facility] Imaging Services [address] [place] [address] Brain/Head without Contrast MR#: [id number] Acct: [id number] Name: SHANNAN GODWIN Rep #: [id number] : 1945 F 72 From: Ana Luisa Babcock MD PCP: Beltran Sibley MD, Chi Status: DEP ER Study: Brain/Head without Contrast Date of Exam: 04/20/18 Exam# [id number] Ordering Dr: Sloan Rosen MD STUDY: CT BRAIN WITHOUT CONTRAST REASON FOR EXAM: Female, 72 years old. Head injury RADIATION DOSAGE (If Supplied By Facility): CTDIvol = ( 44.99 ) mGy, DLP = ( 728.62 ) mGycm TECHNIQUE: Transaxial CT imaging of the brain was performed without administration of intravenous contrast material. Individualized dose optimization techniques were used for this CT. COMPARISON: October 11, 2017 FINDINGS: There is soft tissue swelling and minimal air in the left parietal region. The osseous structures are unremarkable. There is moderate cerebral atrophy with widening of the extra- axial spaces and ventricular dilatation. There are scattered areas of decreased attenuation within the white matter tracts of the supratentorial brain, likely microvascular changes. The basal ganglia and thalami are unremarkable. No abnormalities are seen in the brainstem. The cerebellum is unremarkable. There are moderate vascular calcifications. There is no intracranial hemorrhage. There are no findings of acute ischemia. The visualized sinuses are unremarkable. CT/Brain/Head without Contrast IMPRESSION: No acute intracranial abnormalities or changes. There are stable chronic findings. A scalp hematoma and laceration are present in the left parietal region without underlying fracture. Electronically Signed: Ana Luisa Babcock MD at 18:56 EDT Tel Direct: [phone], Service support , CC: Beltran Sibley MD; Sloan Rosen MD Band Cutter: Signed CBC W/DIFF, AUTOMATED Collected: 04/18/2018 Status: F Source: [place] 11:48 AM [facility] REPOSITORY TYPE CODE TESTS RESULT OUT OF RANGE REFERENCE UNITS LAB L100.1000 4.4-11.0 K/mm3 Normal WBC 7.3 LAB L100.1200 4.2-5.4 M/mm3 Normal RBC 4.98 LAB L100.1300 12.0-15.0 g/dl Normal HGB 14.7 LAB L100.1400 37-47 % Normal HCT 45.1 LAB L100.1500 81-99 fL Normal MCV 90.6 LAB L100.1600 27.0-32.0 pg Normal MCH 29.5 LAB L100.1700 32-36 g/gl Normal MCHC 32.6 LAB L100.1810 11.6-14.6 % Normal RDW CV 13.9 LAB L100.1820 35.1-43.9 fl High RDW SD 46.1 LAB L100.1900 150-450 K/mm3 Normal PLT 197 LAB L100.2000 6.2-12.0 fl High MPV 12.2 LAB L100.2100 47-70 % High NEUT% 72.7 LAB L100.2200 19-41 % Low LY% 16.8 LAB L100.2300 0-10 % Normal MONO% 8.5 LAB L100.2400 0-5 % Normal EO% 1.4 LAB L100.2500 0-1 % Normal BASO% 0.3 LAB L100.2550 0.0-0.9 % Normal IM GRAN % 0.300 Result Comment: IG% - Immature Granulocytes (promyelocytes, myelocytes and metamyelocytes) > 1% indicates that a LEFT SHIFT is Present. LAB L100.2620 2.0-7.7 X10 3/uL Normal Absolute Neut 5.3 LAB L100.2720 0.83-4.51 X10 3/ul Normal Absolute Lymph 1.22 Performed By: #### L100.0100 #### [facility] [address] [place], [place], [address] COMPREHENSIVE METABOLIC Collected: 04/18/2018 Status: F Source: [facility] 11:48 AM [facility] REPOSITORY TYPE CODE TESTS RESULT OUT OF RANGE REFERENCE UNITS LAB L501.0100 74-106 mg/dL High GLU 113 Result Comment: Fasting Glucose result from 100 to 125 mg/dL suggests IMPAIRED HOMEOSTASIS per A.D.A. criteria. Please note revised GLUCOSE reference range effective 2017. LAB L501.1000 7-18 mg/dL High BUN 27 LAB L501.1100 0.55-1.02 mg/dL Normal CREAT,SERUM 0.68 Result Comment: The validity of the calculated GFR AND GFRAA in patients over 70 years has not been determined. Clinical correlation is essential. LAB L501.1110 >60 mL/min Normal EST GFR 91 Result Comment: Non- GFR Calc LAB L501.1115 >60 mL/min Normal EST GFR - AA 110 Result Comment: GFR Calc LAB L501.1300 10-20 RATIO High BUN/CRE 40.0 LAB L501.1500 6.4-8.2 g/dL T Normal PROT 6.8 LAB L501.1800 3.2-5.0 g/dL Normal ALB 3.7 LAB L501.1950 2.2-4.2 g/dL Normal GLOB 3.1 LAB L501.2000 0.9-2.4 RATIO Normal A/G 1.2 LAB L501.2200 8.5-10.1 mg/dL CA Normal 9.8 LAB L501.4100 15-37 U/L Low AST 12 LAB L501.4305 45-117 U/L Normal ALK P 91 LAB L501.4405 13-56 U/L Low ALT < 6 LAB L501.4600 0.20-1.00 mg/dL High T BILI 1.10 LAB L501.5300 136-145 mmol/L NA Normal 140 LAB L501.5600 3.5-5.1 mmol/L K Normal 4.9 LAB L501.5900 98-107 mmol/L CL Normal 107 LAB L501.6100 21.0-32.0 mmol/L Normal CO2 27.0 LAB L501.6200 5-15 Normal GAP 6 Performed By: #### L500.4050, L501.9520 #### [facility] [address] [place], [place], [id number] THYROID STIM HORMONE Collected: 04/18/2018 Status: F Source: [facility] ([facility]) 11:48 AM [facility] REPOSITORY TYPE CODE TESTS RESULT OUT OF RANGE REFERENCE UNITS LAB L501.9520 0.358-3.74 uIU/mL Low TSH 0.07 Performed By: #### L500.4050, L501.9520 #### [facility] [address] [place], [place], [address] VITAMIN D,25 HYDROXY Collected: 04/18/2018 Status: F Source: [facility] 11:48 AM [facility] REPOSITORY TYPE CODE TESTS RESULT OUT OF RANGE REFERENCE UNITS LAB L506.1000 29.95-100.01 ng/mL Normal Vitamin D 30.1 25-OH Result Comment: Vitamin D 25(OH) Status Range Deficiency <20 ng/mL (50nmol/L) Insuffciency 20 - 30 ng/mL (50 - 75 nmol/L) Sufficiency 30 - 100 ng/mL (75 - 250 nmol/L) Toxicity >100 ng/mL (>250 nmol/L) Performed By: #### L506.1000 #### [facility] [address] [place], [address] Observed: 03/17/2018 Status: F Source: [place] RESPIRATORY PANEL 4:55 PM [facility] MOLECULAR REPOSITORY RP PANEL RESULTS CALLED TO ASHA SILBEY- 03/18/18 1020 Barbara Guy. REPORT READ BACK BY SAME. Normal Reference Range = Not Detected ADENOVIRUS Not Detected HUMAN METAPHNEUMO Not Detected INFLUENZA A Not Detected INFLUENZA A (SUBTYPE H1) Not Detected INFLUENZA A (SUBTYPE H3) Not Detected INFLUENZA B Not Detected PARAINFLUENZA 1 Not Detected PARAINFLUENZA 2 Not Detected PARAINFLUENZA 3 Not Detected PARAINFLUENZA 4 Not Detected RHINOVIRUS Not Detected RSV A Not Detected RSV B Positive for RSV B by NAAT technology NAAT METHOD Testing was performed using nucleic acid amplification ORGANISM 1: RSV B Performed By: #### M100.638 #### [facility] [address] [place], [address] CHEST PA AND LATERAL Observed: 03/17/2018 Status: F Source: [place] 4:34 PM [facility] REPOSITORY [facility] [address] [place] [address] Chest PA and Lateral MR#: [id number] Acct: [id number] Name: SHANNAN GODWIN Rep #: [id number] : 1945 F 72 From: Jonnie Jenkins MD PCP: Beltran Sibley MD, Chi Status: REG CLI Study: Chest PA and Lateral Date of Exam: 03/17/18 Exam# [id number] Ordering Dr: Beltran Sibley MD STUDY: X-RAY CHEST REASON FOR EXAM: Female, 72 years old. Cough TECHNIQUE: Frontal and lateral views of the chest COMPARISON: 10/11/2017 FINDINGS: The lungs are clear. There are no pleural effusions. There is no pneumothorax. The heart is normal in size. There are degenerative changes noted in the shoulders. RAD/Chest PA and Lateral IMPRESSION: No acute thoracic pathology. Electronically Signed: Jonnie Jenkins, at 17:01 EDT Tel , Service support , CC: Beltran Sibley MD Band Cutter: Signed CBC W/DIFF, AUTOMATED Collected: 12/24/2017 Status: F Source: [facility] 3:24 PM [facility] REPOSITORY TYPE CODE TESTS RESULT OUT OF RANGE REFERENCE UNITS LAB L100.1000 4.4-11.0 K/mm3 Normal WBC 6.5 LAB L100.1200 4.2-5.4 M/mm3 Normal RBC 4.72 LAB L100.1300 12.0-15.0 g/dl Normal HGB 13.9 LAB L100.1400 37-47 % Normal HCT 42.3 LAB L100.1500 81-99 fL Normal MCV 89.6 LAB L100.1600 27.0-32.0 pg Normal MCH 29.4 LAB L100.1700 32-36 g/gl Normal MCHC 32.9 LAB L100.1810 11.6-14.6 % Normal RDW CV 14.2 LAB L100.1820 35.1-43.9 fl High RDW SD 46.0 LAB L100.1900 150-450 K/mm3 Normal PLT 203 LAB L100.2000 6.2-12.0 fl High MPV 12.6 LAB L100.2100 47-70 % Normal NEUT% 63.4 LAB L100.2200 19-41 % Normal LY% 22.9 LAB L100.2300 0-10 % Normal MONO% 9.5 LAB L100.2400 0-5 % Normal EO% 3.7 LAB L100.2500 0-1 % Normal BASO% 0.3 LAB L100.2550 0.0-0.9 % Normal IM GRAN % 0.200 Result Comment: IG% - Immature Granulocytes (promyelocytes, myelocytes and metamyelocytes) > 1% indicates that a LEFT SHIFT is Present. LAB L100.2620 2.0-7.7 X10 3/uL Normal Absolute Neut 4.1 LAB L100.2720 0.83-4.51 X10 3/ul Normal Absolute Lymph 1.49 Performed By: #### L100.0100 #### [facility] [address] [place], [place], [address] COMPREHENSIVE METABOLIC Collected: 12/24/2017 Status: F Source: [facility] 3:24 PM [facility] REPOSITORY TYPE CODE TESTS RESULT OUT OF RANGE REFERENCE UNITS LAB L501.0100 74-106 mg/dL High GLU 119 Result Comment: Fasting Glucose result from 110 to <126 mg/dL suggests IMPAIRED HOMEOSTASIS per A.D.A. criteria. LAB L501.1000 7-18 mg/dL High BUN 27 LAB L501.1100 0.55-1.02 mg/dL Normal CREAT,SERUM 0.69 Result Comment: The validity of the calculated GFR AND GFRAA in patients over 70 years has not been determined. Clinical correlation is essential. LAB L501.1110 >60 mL/min Normal EST GFR 89 Result Comment: Non- GFR Calc LAB L501.1115 >60 mL/min Normal EST GFR - AA 107 Result Comment: GFR Calc LAB L501.1300 10-20 RATIO High BUN/CRE 39.1 LAB L501.1500 6.4-8.2 g/dL T Normal PROT 7.0 LAB L501.1800 3.2-5.0 g/dL Normal ALB 3.4 LAB L501.1950 2.2-4.2 g/dL Normal GLOB 3.6 LAB L501.2000 0.9-2.4 RATIO Normal A/G 0.9 LAB L501.2200 8.5-10.1 mg/dL CA Normal 9.0 LAB L501.4100 15-37 U/L Low AST 13 LAB L501.4305 45-117 U/L Normal ALK P 82 LAB L501.4405 13-56 U/L Normal ALT 18 Result Comment: Please note revised ALT reference range effective 2017. LAB L501.4600 0.20-1.00 mg/dL Normal T BILI 0.50 LAB L501.5300 136-145 mmol/L Normal NA 140 LAB L501.5600 3.5-5.1 mmol/L Normal K 4.1 LAB L501.5900 98-107 mmol/L Normal CL 105 LAB L501.6100 21.0-32.0 mmol/L Normal CO2 27.0 LAB L501.6200 5-15 Normal GAP 8 Performed By: #### L500.4050, L501.9520 #### [facility] [address] [place], [place], [address] THYROID STIM HORMONE Collected: 12/24/2017 Status: F Source: [facility] ([facility]) 3:24 PM [facility] REPOSITORY TYPE CODE TESTS RESULT OUT OF RANGE REFERENCE UNITS LAB L501.9520 0.358-3.74 uIU/mL Normal TSH 1.16 Performed By: #### L500.4050, L501.9520 #### [facility] [address] [place], [place], [address] VITAMIN D,25 HYDROXY Collected: 12/24/2017 Status: F Source: [facility] 3:24 PM [facility] REPOSITORY TYPE CODE TESTS RESULT OUT OF RANGE REFERENCE UNITS LAB L506.1000 19.95-100.01 ng/mL Normal Vitamin D 24.5 25-OH Result Comment: Vitamin D 25(OH) Status Range Deficiency <20 ng/mL (50nmol/L) Insuffciency 20 - 30 ng/mL (50 - 75 nmol/L) Sufficiency 30 - 100 ng/mL (75 - 250 nmol/L) Toxicity >100 ng/mL (>250 nmol/L) Performed By: #### L506.1000 #### [facility] [address] [place], [place], [address] ALLERGIES ALLERGIES DATE TYPE / CODE NAME / CODE REACTION SEVERITY SOURCE 05/20/2018 Drug diclofenac kidneys shut Unknown [place] Allergy/416 sodium/[id number] [facility] 329318[facility] 05/20/2018 Drug misoprostol/F0060 kidneys shut Unknown Jd Allergy/416 86840(RXNORM) [facility] 340048([facility] ED CT) Repository ENCOUNTERS ENCOUNTERS ADMIT/DISCHARGE ACCOUNT NUMBER ADMITTING ENCOUNTER LOCATION SOURCE CLASS 10/17/2018 [id number] [facility] ding:POLAB3 Repository 10/05/2018/10/05/20 [id number] Emergency [address] ding:ED Repository 09/08/2018 [id number] Ambulatory [facility] ding:POLAB3 Repository 08/14/2018/08/14/20 [id number] Ambulatory [address] ding:PT Repository 06/02/2018 [id number] Ambulatory [facility] ding:POLAB3 Repository 05/20/2018/05/20/20 [id number] Emergency [address] ding:ED Repository 04/20/2018/04/20/20 [id number] Emergency [address] ding:ED Repository 04/18/2018 [id number] Ambulatory [facility] ding:POLAB3 Repository 03/17/2018 [id number] Ambulatory [facility] ding:PSN Repository 12/27/2017/12/27/19 [id number] Ambulatory [facility]Building:[facility] [place] [address] [place] [address] Repository 12/24/2017 [id number] Ambulatory [facility] ding:POLAB3 Repository PAYERS PAYERS ENCOUNTER GUARANTOR PAYER SUBSCRIBER SOURCE 10/17/2018 SHANNAN BURDICK5 Primary SHANNAN HALL: Jdjavid DANIELSTRONG Insurance:[place] [id number] [address]Fyi: ([facility] [phone] () Number: [id number] Date: [place], [place] [address]FY: 10/17/2018 Secondary NOT GIVENUNK [place] Insurance:SELF [facility]Y [facility] Number: Effective Repository Date:2018-10-17 10/05/2018 SHANNAN BURDICK5 Primary SHANNAN Zhou GODWINDOB: [place] WEAVER Insurance:[place] [id number] [facility] [address]Otp: [phone]) MEDICAREPolicy Repository [phone] () Number: [id number] Date: [place], [place] [address]OS: 10/05/2018 Secondary NOT GIVENUNK [place] Insurance:SELF PAY [facility] Number: Effective Repository Date:2018-10-05 09/08/2018 Shannan Burdick5 Primary Shannan Zhou GodwinDOB: Jd WEAVER Insurance:[place] [id number] [facility] [address]Nkz: (126) MEDICAREPolicy Repository [phone] () Number: [id number] Date: [place], [place] [address]VT: 09/08/2018 Secondary NOT GIVENUNK Jd Insurance:SELF PAY [facility] Number: Effective Repository Date:2018-09-08 08/14/2018 Shannan Burdick5 Primary Shannan F TatoDOB: [place] WEAVER Insurance:[place] [id number] [facility] [address]Pyb: (999) MEDICAREPolicy Repository [phone] () Number: [id number] Date: [place], [place] [address]UM: 08/14/2018 Secondary NOT GIVENUNK Jd Insurance:SELF PAY [facility] Number: Effective Repository Date:2018-04-24 06/02/2018 Shannan Zhou Burdick5 Primary Shannan F BrownDOB: [place] WEAVER Insurance:[place] [id number] [facility] [address]Qpx: (857) MEDICAREPolicy Repository [phone] () Number: [id number] Date: [place], [place] [address]OS: 06/02/2018 Secondary NOT GIVENUNK [place] Insurance:SELF PAY [facility] Number: Effective Repository Date:2018-04-30 05/20/2018 Shannan Zhou [id number] Primary Shannan F BrownDOB: Jd WEAVER Insurance:[place] [id number] [place] [address]Tel: (967) MEDICAREPolicy Repository [phone] () Number: [id number] Date: [place], [place] [address]YV: 05/20/2018 Secondary NOT GIVENUNK [place] Insurance:SELF PAY [facility] Number: Effective Repository Date:2018-05-20 04/20/2018 Shannan Zhou [id number] Primary Shannan F BrownDOB: [place] WEAVER Insurance:[place] [id number] [place] [address]Tel: MEDICAREPolicy Repository [phone] Number: [phone] (HP) [id number] Date: [place], [place] [address]TX: 04/20/2018 Secondary NOT GIVENUNK [place] Insurance:SELF PAY [facility] Number: Effective Repository Date:2018-04-20 04/18/2018 Shannan Zhou [id number] Primary Shannan F BrownDOB: Jd WEAVER Insurance:[place] [id number] [facility] [address]Vap: (330) MEDICAREPolicy Repository 62 () Number: [id number] Date: [facility] [address]JM: 04/18/2018 Secondary NOT GIVENUNK [place] Insurance:SELF PAY [facility] Number: Effective Repository Date:2018-04-18 03/17/2018 Shannan Zhou [id number] Primary Shannan Zhou GodwinDOB: [place] WEAVER Insurance:[place] [id number] [place] [address]Dsr: ([phone]) MEDICAREPolicy Repository () Number: [id number] Date: [place], [place] [address]VO: 03/17/2018 Secondary NOT GIVENUNK Jd Insurance:SELF PAY [facility] Number: Effective Repository Date:2018-03-17 12/27/2017 SHANNAN F TATODOB: Primary SHANNAN F TATODOB: [facility] [id number] [facility] [id number] Foundation [place] THP MEDICAREPolicy 5 [place] Number: [place], [place] [address]Ndm: 330 [id number]: () Date:[id number] ()Tel: ([phone]) Name:[id number] [facility] [id number] ([facility] [place] [address]ZJ: 12/24/2017 Shannan Zhou [id number] Primary Shannan F BrownDOB: Jd Krabill Insurance:[place] [id number] [place] [address]Amq: (924) MEDICAREPolicy Repository [phone] () Number: [id number] Date: [facility] [place] [address]BT: 12/24/2017 Secondary NOT GIVENUNK [place] Insurance:SELF PAY [facility] Number: Effective Repository Date:2017-12-24
== END ==
PROVIDERS: Family Provider Family Medicine Geriatric Medicine; PCP Family Medicine Geriatric Medicine; Visit Provider Family Medicine Geriatric Medicine
DX: E11.9 Type 2 diabetes mellitus without complications (principal); I10 Essential (primary) hypertension; E55.9 Vitamin D deficiency, unspecified; M10.9 Gout, unspecified
CPT/HCPCS: 36415; 80053; 82306; 84443; 84550; 85025

== ENCOUNTER → 2018-12-02 15:24 | Outpatient (CLI) | payer MEDICARE, SELFPAY | PROVIDERS: Family Provider Family Medicine Geriatric Medicine; PCP Family Medicine Geriatric Medicine; Visit Provider Family Medicine Geriatric Medicine | DX: E03.9 Hypothyroidism, unspecified (principal) | CPT/HCPCS: 36415; 84443 ==

== ENCOUNTER → 2018-12-17 10:40 | Outpatient (CLI) | payer MEDICARE, SELFPAY ==
--- NOTE | 2018-12-17 10:46 | CT_ITS ---
STUDY: CT BRAIN WITHOUT CONTRAST REASON FOR EXAM: Female, 73 years old. History of closed head injury. RADIATION DOSAGE (If Supplied By Facility): CTDIvol = ( 44.99 ) mGy, DLP = ( 796.11 ) mGycm TECHNIQUE: Transaxial CT imaging of the brain was performed without administration of intravenous contrast material. Individualized dose optimization techniques were used for this CT. COMPARISON: Comparison is made with prior study dated May 20, 2018. FINDINGS: Normal soft tissue structures. Normal calvarium. There is moderate cerebral atrophy with widening of the extra-axial spaces and ventricular dilatation. There are areas of decreased attenuation within the white matter tracts of the supratentorial brain, consistent with microvascular disease changes. Normal basal ganglia and thalami. Normal brainstem. Normal cerebellum. There is no intracranial hemorrhage. There are no findings of an acute ischemic infarction. Normal visualized paranasal sinuses. CT/Brain/Head without Contrast IMPRESSION: Chronic involutional changes of the brain. Electronically Signed: Masood Wallace MD at 11:23 EST , Service support ,
== END ==
PROVIDERS: Family Provider Family Medicine Geriatric Medicine; PCP Family Medicine Geriatric Medicine; Referring Provider Family Medicine Geriatric Medicine; Visit Provider Family Medicine Geriatric Medicine
DX: S09.90XA Unspecified injury of head, initial encounter (principal)
CPT/HCPCS: 70450

== ENCOUNTER → 2019-01-14 15:37 | Outpatient (CLI) | payer MEDICARE, SELFPAY | PROVIDERS: Family Provider Family Medicine Geriatric Medicine; PCP Family Medicine Geriatric Medicine; Visit Provider Family Medicine Geriatric Medicine | DX: N39.0 Urinary tract infection, site not specified (principal) | CPT/HCPCS: 87086; 87088 ==

== ENCOUNTER → 2019-02-24 16:30 | Outpatient (CLI) | payer MEDICARE, SELFPAY ==
--- NOTE | 2019-02-24 16:33 | US_ITS ---
STUDY: RENAL ULTRASOUND - COMPLETE REASON FOR EXAM: Female, 73 years old. Frequent UTIs TECHNIQUE: Ultrasound evaluation of the kidneys was performed with real-time and static tran-scale imaging. COMPARISON: None. FINDINGS: RIGHT KIDNEY: Normal location of the right kidney, which is normal in size. The right kidney measures 9.5 x 4.2 x 4.6 cm. There is a normal cortex of the right kidney. The renal cortex measures 1.1 cm. There is no right renal mass or cyst. There are no right renal calculi. There is no right hydronephrosis. DISTAL RIGHT URETER: There is non-visualization of the distal right ureter. There is no demonstrated right ureterovesical junction calculus. There is no demonstrated right ureteral jet. LEFT KIDNEY: Normal location of the left kidney, which is normal in size. The left kidney measures 10.3 x 3.9 x 4.3 cm. There is a normal cortex of the left kidney. The renal cortex measures 1.0 cm. There is a lower pole cyst measuring 1.2 x 1.2 x 0.9 cm. There are no left renal calculi. There is no left hydronephrosis. DISTAL LEFT URETER: There is non-visualization of the distal left ureter. There is no demonstrated left ureterovesical junction calculus. There is no demonstrated left ureteral jet. BLADDER: The distended urinary bladder has a volume of 59 ml. There is a normal wall thickness of the distended urinary bladder. There is no demonstrated mass within the urinary bladder. There are no demonstrated bladder calculi. US/Kidney and Bladder IMPRESSION: Small cyst of the lower pole of the left kidney. The right kidney appears normal. Electronically Signed: Lawrence Starr MD at 20:26 EDT , Service support ,
== END ==
PROVIDERS: Family Provider Family Medicine Geriatric Medicine; PCP Family Medicine Geriatric Medicine; Referring Provider Urology; Visit Provider Urology
DX: N39.0 Urinary tract infection, site not specified (principal)
CPT/HCPCS: 76770

== ENCOUNTER → 2019-04-21 15:22 | Outpatient (CLI) | payer MEDICARE, SELFPAY ==
[2019-04-21 17:23] LABS: Absolute Lymphocyte Count 1.32 X10^3/ul (0.83-4.51); Absolute Neutrophil Count 3.1 X10^3/uL (2.0-7.7); Basophil# 0.01 X10^3/uL; Basophil% 0.2 % (0-1); Eosinophil# 0.29 X10^3/uL; Eosinophils% 5.5 % (0-5); Hemoglobin 12.6 g/dl (12.0-15.0); Lymphocyte # 1.32 X10^3/ul (4.0); Lymphocyte % 25.1 % (19-41); Mean Corp Hgb Conc 31.5 g/gl (32-36); Mean Corpuscular Hgb 28.2 pg (27.0-32.0); Mean Corpuscular Volume 89.5 fL (81-99); Mean Platelet Vol. 12.5 fl (6.2-12.0); Monocyte# 0.52 X10^3/uL; Monocyte% 9.9 % (0-10); Neutrophil # 3.11 X10^3/uL (2.7-7.7); Neutrophil % 59.1 % (47-70); Platelet Count 213 K/mm3 (150-450); RBC Distribution Width CV 13.7 % (11.6-14.6); RBC Distribution Width SD 45.2 fl (35.1-43.9); Red Blood Count 4.47 M/mm3 (4.2-5.4); White Blood Count 5.3 K/mm3 (4.4-11.0)
[2019-04-21 17:35] LABS: POSITIVE COUNT NO; POSITIVE DIFFERENTIAL NO; POSITIVE MORPHOLOGY NO
[2019-04-21 17:39] LABS: AST(SGOT) 13 U/L (15-37); Alanine Aminotransfer ALT/SGPT 12 U/L (13-56); Albumin, Serum 3.4 g/dL (3.2-5.0); Alkaline Phosphatase 90 U/L (45-117); Anion Gap 7 (5-15); BUN 24 mg/dL (7-18); BUN/Creat Ratio 34.3 RATIO (10-20); Calcium,Total 8.8 mg/dL (8.5-10.1); Chloride 104 mmol/L (98-107); EST Glomerular Filtration Rate 87 mL/min (>60); Est Glom Filt Rate - Afr Amer 105 mL/min (>60); Globulin 3.3 g/dL (2.2-4.2); Glucose 148 mg/dL (74-106); Potassium 3.7 mmol/L (3.5-5.1); Protein, Total 6.7 g/dL (6.4-8.2); Sodium Level 141 mmol/L (136-145); Thyroid Stim Hormone (TSH) 0.03 uIU/mL (0.358-3.74)
[2019-04-21 17:40] LABS: Vitamin D,25 Hydroxy 29.3 ng/mL (29.95-100.01)
== END ==
PROVIDERS: Family Provider Family Medicine Geriatric Medicine; PCP Family Medicine Geriatric Medicine; Visit Provider Family Medicine Geriatric Medicine
DX: E11.9 Type 2 diabetes mellitus without complications (principal); I10 Essential (primary) hypertension; E55.9 Vitamin D deficiency, unspecified
CPT/HCPCS: 36415; 80053; 82306; 84443; 85025

== ENCOUNTER → 2019-05-25 17:19 | Outpatient (CLI) | payer MEDICARE, SELFPAY ==
--- NOTE | 2019-05-25 17:21 | RAD_ITS ---
STUDY: X-RAY - LEFT SHOULDER REASON FOR EXAM: Female, 73 years old. Pain TECHNIQUE: 4 view(s) of the shoulder. COMPARISON: None. FINDINGS: There is no evidence of fracture or dislocation. Severe degenerative changes are present at the glenohumeral joint. There is associated bulky osteophytosis. There are no radiodense foreign bodies. RAD/Shoulder min 2 Views IMPRESSION: No fracture or dislocation. Severe degenerative changes at the glenohumeral joint with bulky osteophytosis. Electronically Signed: Johnnie Berry, at 18:07 EDT Tel , Service support ,
--- NOTE | 2019-05-25 17:30 | RAD_ITS ---
STUDY: X-RAY - RIGHT SHOULDER REASON FOR EXAM: Female, 73 years old. Pain TECHNIQUE: 4 view(s) of the shoulder. COMPARISON: X-ray right shoulder October 11, 2017 FINDINGS: There is no evidence of fracture or dislocation. Severe degenerative changes are present at the glenohumeral joint with bulky osteophytosis. There are no radiodense foreign bodies. RAD/Shoulder min 2 Views IMPRESSION: No fracture or dislocation. Severe degenerative changes at the glenohumeral joint with bulky osteophytosis. Electronically Signed: Johnnie Berry, at 18:08 EDT Tel , Service support ,
== END ==
PROVIDERS: Family Provider Family Medicine Geriatric Medicine; PCP Family Medicine Geriatric Medicine; Referring Provider Family Medicine Geriatric Medicine; Visit Provider Family Medicine Geriatric Medicine
DX: M75.50 Bursitis of unspecified shoulder (principal)
CPT/HCPCS: 73030

== ENCOUNTER 2019-08-22 09:25 | Emergency (ER) | payer MEDICARE, SELFPAY ==
[2019-08-22 09:25] VITALS: BP 176/107; PULSE 64; RESP 18; TEMP 36.1; O2SAT 97; BMI 31.0
--- NOTE | 2019-08-22 09:33 | CT_ITS ---
STUDY: CT BRAIN WITHOUT CONTRAST REASON FOR EXAM: Female, 73 years old. Patient tripped and hit head. RADIATION DOSAGE (If Supplied By Facility): CTDIvol = ( 44.99 ) mGy, DLP = ( 779.24 ) mGycm TECHNIQUE: Transaxial CT imaging of the brain was performed without administration of intravenous contrast material. Individualized dose optimization techniques were used for this CT. COMPARISON: 12/17/2018. FINDINGS: There is right posterior parietal scalp hematoma. Normal calvarium. There is moderate cerebral atrophy with widening of the extra-axial spaces and ventricular dilatation. There are areas of decreased attenuation within the white matter tracts of the supratentorial brain, consistent with microvascular disease changes. Normal basal ganglia and thalami. Normal brainstem. Normal cerebellum. There is no intracranial hemorrhage. There are no findings of an acute ischemic infarction. 1. Normal visualized paranasal sinuses. CT/Brain/Head without Contrast IMPRESSION: Right posterior parietal scalp soft tissue hematoma. Chronic involutional changes of the brain. No acute intracranial process. Electronically Signed: Junior Garza MD at 10:17 EDT Tel , Service support ,
--- NOTE | 2019-08-22 09:33 | CT_ITS ---
STUDY: CT CERVICAL SPINE WITHOUT CONTRAST REASON FOR EXAM: Female, 73 years old. Patient tripped over curb and hit head. RADIATION DOSAGE (If Supplied By Facility): CTDIvol = ( 29.88 ) mGy, DLP = ( 636.18 ) mGycm TECHNIQUE: High resolution transaxial imaging was performed without contrast material. Sagittal and coronal images were reconstructed. Individualized dose optimization techniques were used for this CT. COMPARISON: None FINDINGS: Normal craniovertebral junction. Normal anterior atlantoaxial articulation. Normal odontoid process. There is straightening of the normal cervical lordosis. There is no evidence of acute compression fracture deformity. The posterior elements appear intact. C2-3: No evidence of central spinal canal or neural foramina stenosis. C3-4: Minimal anterolisthesis of C3 over C4. Severe degenerative changes of the right apophyseal joint. No evidence of central spinal canal stenosis. C4-5: Severe narrowing of the disc space. 3 mm retrolisthesis of C4 over C5. Degenerative changes in the adjacent endplates and endplate spondylosis. Broad-based posterior degenerative spur. Narrowing of the central spinal canal and mild narrowing of the neural foramina. C5-6: Narrowing of the disc space. Posterior degenerative spur extending to the lateral recesses. Mild narrowing of central spinal canal and bilateral neural foramina. C6-7: Narrowing of the disc space. Mild narrowing of the left neural foramina. No evidence of central spinal canal stenosis. C7-T1: Narrowing of the disc space. No evidence of central spinal canal stenosis. There is no prevertebral soft tissue swelling. There is gas in the cervical esophagus. There are calcifications of the carotid arteries bilaterally. CT/Spine Cervical without Contras IMPRESSION: 1. Multilevel degenerative changes, as described above. 2. Straightening of the cervical spine which could be due to muscle spasm. 3. No demonstrated acute fracture. 4. If symptoms persist, further evaluation with MRI of the cervical spine is recommended. Electronically Signed: Junior Garza MD at 10:30 EDT Tel , Service support ,
--- NOTE | 2019-08-22 09:47 | ED.DCSUM_ITS ---
- ER Visit Summary Date of Service: 08/22/19 Chief Complaint: Head injury History of Present Illness: The patient is a 73 F who states she was going outside today attempting to go down some small steps when she apparently tripped and fell striking the back of her head. She notes that she takes aspirin daily. She denies any loss of consciousness. She notes that she hurts in the shoulders but is not different than any pain she has had before. She also notes a pain in her neck but she states that that has been there before due to arthritis. She cannot tell me if that is any different than normal. EMS notes a large hematoma to the occiput. EMS states she seemed to be a little bit more confused in route to the hospital he was when they initially arrived on scene. Physical Examination: Afebrile noted hypertension otherwise vital signs are stable Gen: Well-nourished well-developed Head: Normocephalic there is a 4 cm high occipital hematoma of the scalp no obvious bony depression. Eyes: Perrl EOMI ENT: TMs clear no rhinorrhea moist mucous membranes Neck: Supple no lymphadenopathy no JVD nontender CVS: Regular rate rhythm no murmurs normal S1-S2 Respiratory: No distress clear to auscultation bilaterally chest nontender Abdomen: Soft nontender nondistended normal bowel sounds no masses Back: Nontender Extremity: Nontender no edema Skin: Normal color no rash Neuro: alert orientated ?3 CN II-XII intact normal strength sensation reflexes gait cerebellar Psych: Normal affect normal mood Test Results: CT brain cervical spine were obtained. This demonstrated no intracranial hemorrhage or skull/neck fracture. Scalp hematoma was noted. Emergency Department Course and Treatment: Patient will be discharged home with supportive care. Return if worsening or concerns. Fall prevention discussed. Impression: 1. Scalp hematoma This note was generated with [employer] dictation software. It may contain incorrect words, spelling, and punctuation that were not noted in review of the chart prior to signing ED Disposition - Plan for ED Patient: Disposition: Home or Assisted Living Instructions: HEAD INJURY, No Wake-Up (Adult) Referrals: Beltran Garza Chi, MD [Primary Care Provider] - 1 Week if not improving
[2019-08-22 10:34] VITALS: RESP 18
[2019-08-22 11:34] VITALS: RESP 18
== END 2019-08-22 12:00 | disposition home or self-care (01) ==
PROVIDERS: Emergency Provider Emergency Medicine; Family Provider Family Medicine Geriatric Medicine; PCP Family Medicine Geriatric Medicine
DX: S00.03XA Contusion of scalp, initial encounter (principal); W10.8XXA Fall (on) (from) other stairs and steps, initial encounter; Y93.01 Activity, walking, marching and hiking; I10 Essential (primary) hypertension; E11.9 Type 2 diabetes mellitus without complications; Z79.84 Long term (current) use of oral hypoglycemic drugs; Z79.82 Long term (current) use of aspirin; Z79.899 Other long term (current) drug therapy; Z87.891 Personal history of nicotine dependence
CPT/HCPCS: 70450; 72125; 99284

== ENCOUNTER → 2019-10-20 15:11 | Outpatient (CLI) | payer MEDICARE, SELFPAY ==
[2019-10-20 17:18] LABS: Absolute Lymphocyte Count 1.27 X10^3/uL (0.83-4.51); Absolute Neutrophil Count 3.4 X10^3/uL (2.0-7.7); Basophil# 0.02 X10^3/uL; Basophil% 0.4 % (0-1); Eosinophil# 0.27 X10^3/uL; Hematocrit 41.3 % (37-47); Hemoglobin 13.2 g/dL (12.0-15.0); Lymphocyte # 1.27 X10^3/ul (4.0); Lymphocyte % 23.4 % (19-41); Mean Corpuscular Hgb 29.1 pg (27.0-32.0); Mean Platelet Vol. 12.6 fl (6.2-12.0); Monocyte# 0.49 X10^3/uL; NRBC Flagged by Analyzer 0 % (0-5); Neutrophil # 3.36 X10^3/uL (2.7-7.7); Platelet Count 225 K/mm3 (150-450); RBC Distribution Width CV 12.9 % (11.6-14.6); RBC Distribution Width SD 42.9 fl (35.1-43.9); Red Blood Count 4.54 M/mm3 (4.2-5.4); White Blood Count 5.4 K/mm3 (4.4-11.0)
[2019-10-20 17:39] LABS: AST(SGOT) 15 U/L (15-37); Alanine Aminotransfer ALT/SGPT 14 U/L (13-56); Albumin, Serum 3.4 g/dL (3.2-5.0); Alkaline Phosphatase 79 U/L (45-117); Anion Gap 8 (5-15); BUN 28 mg/dL (7-18); BUN/Creat Ratio 36.2 RATIO (10-20); Calcium,Total 9.2 mg/dL (8.5-10.1); Chloride 104 mmol/L (98-107); Creatinine, Serum 0.77 mg/dL (0.55-1.02); EST Glomerular Filtration Rate 77 mL/min (>60); Est Glom Filt Rate - Afr Amer 93 mL/min (>60); Globulin 3.5 g/dL (2.2-4.2); Glucose 113 mg/dL (74-106); Potassium 4.3 mmol/L (3.5-5.1); Protein, Total 6.9 g/dL (6.4-8.2); Sodium Level 139 mmol/L (136-145); Thyroid Stim Hormone (TSH) 0.06 uIU/mL (0.358-3.74); Uric Acid 6.1 mg/dL (2.6-6.0); Vitamin D,25 Hydroxy 46.1 ng/mL (29.95-100.01)
== END ==
PROVIDERS: Family Provider Family Medicine Geriatric Medicine; PCP Family Medicine Geriatric Medicine; Visit Provider Family Medicine Geriatric Medicine
DX: E11.9 Type 2 diabetes mellitus without complications (principal); E55.9 Vitamin D deficiency, unspecified; I10 Essential (primary) hypertension; M10.9 Gout, unspecified
CPT/HCPCS: 36415; 80053; 82306; 84443; 84550; 85025

== ENCOUNTER 2019-10-21 17:43 | Emergency (ER) | payer MEDICARE, SELFPAY ==
[2019-10-21 17:44] VITALS: BP 182/75; PULSE 60; RESP 17; TEMP 37; O2SAT 97; BMI 28.9
--- NOTE | 2019-10-21 18:31 | ED.DCSUM_ITS ---
History of Present Illness Chief Complaint: Head Injury Informant: Patient, Family Onset: Today - Fell and struck forehead, Yesterday - Vertigo that is worse with movement of her head Context: Sudden Onset Timing: Intermittent - Duration 1 to 2 minutes Quality: Spinning sensation Location: Movement of head Current Severity: - - Absent Maximum Severity: Severe - Turning head to the right Worsened by: Movement her head Relieved by: Remaining still and closing her eyes Associated Symptoms: Nausea Narrative: Patient is an elderly woman who has history of mechanical falls. She did fall yesterday. She did strike her forehead there is no loss of conscious. She is on no anticoagulant or antiplatelet medicine. She denies visual, ocular auditory symptoms. No trouble speech or swallowing. She denies neck pain. She denies paresthesia, anesthesia motors of upper lower external he. She walks with a walker. She did not have blood in her urine. She has no other complaints other than when she turns her head things spinning and she becomes nauseous - Past Medical History (1) Syncope Status: Acute (2) Diabetes mellitus, type 2 Status: Chronic (3) Hyperlipidemia Status: Chronic (4) Hypertension Status: Chronic (5) Hypothyroidism Status: Chronic Past Medical History - Allergies and Home Meds Allergies/Adverse Reactions: Allergies diclofenac sodium [From [employer]] Allergy (Verified 08/22/19 09:29) kidneys shut down KIDNEYS SHUT DOWN PT STATES misoprostol [From [employer]] Allergy (Verified 08/22/19 09:29) kidneys shut down KIDNEYS SHUT DOWN PT STATES Primary Care Physician: Beltran Garza Chi, MD [Primary Care Provider] - As Needed Prior records reviewed: Yes Surgical History: arthroscopy, knee - BL, cholecystectomy, tonsillectomy Lives: With Family Smoking Status: Former smoker Alcohol: None Drugs: None - Family History Maternal Family History: Reports: Hypertension Review of Systems General: Denies: Chills, Fever Eyes: Denies: Visual changes - bilaterally, Blurred Vision - bilaterally, Diplopia ENT: Reports: - - Denies tinnitus or decreased hearing. Denies: Bilateral ear pain, Rhinorrhea, Sore throat Cardiovascular: Denies: Chest pain, Palpitations Respiratory: Denies: Dyspnea, Cough, Dyspnea on exertion Gastrointestinal: Reports: Nausea, Vomiting Genitourinary: Denies: Dysuria, Hematuria, Frequency Musculoskeletal: Denies: Myalgias, Arthralgias, Neck pain, Back pain, Swelling, Extremity Pain Skin: Denies: Rash, Abscess, Abrasions, Wounds Neurological: Denies: Headache, Weakness, Parasthesia, Numbness Allergy: Denies: Uticaria, Swelling of the mouth Physical Exam Vital Signs/Narrative: Vital Signs Temp Pulse Resp BP Pulse Ox 10/21/19 17:44 98.6 F 60 17 182/75 H 97 Inital Vital Signs reviewed: Yes General: Well nourished, Well developed, No Acute Distress Head: Normocephalic, Atraumatic Eyes: Perrl, EOMI. Negative for: Pale conjunctiva, Scleral icterus ENT: Moist mucous membranes, No rhinorrhea Neck: Supple, Nontender Cardiovascular: Regular rate, Regular rhythm, No murmurs Respiratory: No distress, CTA bilaterally, Chest nontender Abdomen: Soft, Nontender, Nondistended, Normal bowel sounds Back: Nontender, Normal Inspection Extremities: Nontender, No edema Skin: Normal color, No rash Neurological: Alert, Oriented x3, Cranial nerves II-XII grossly intact, Normal Strength, Normal Sensation, Normal DTR, - - [place]-Hallpike maneuver was positive with significant nystagmus with initial upward deflection and horizontal deflection to the left. This reproduced her symptoms. She had no symptoms with maneuver turning her head to the left. Psychological: Normal affect, Normal Mood Diagnostic/Tx/Re-eval - Medical Decision Making Since no exam is normal and she has a positive Derik-Hallpike maneuver Massiel maneuver was performed. Since she had symptoms with the head turned to the right initial position was with patient on her right side and had turned to the right with a 15 degree tilt. Patient had significant nystagmus that fatigues. She then was changed to have her head turned to the left. She had marked nystagmus which fatigues and symptoms resolved. Septum was placed in upright position with her head flexed 15 degrees. Symptoms were present briefly. Plan is to ambulate in 15 minutes. If she is able to ambulatory, she will go home. Procedures Procedure(s): Massiel maneuver total time 10 minutes ED Disposition - Plan for ED Patient: Disposition: Home or Assisted Living Diagnosis: Benign paroxysmal positional vertigo of right ear Instructions: Benign Positional Vertigo Referrals: Beltran Garza Chi, MD [Primary Care Provider] - As Needed
[2019-10-21 19:17] VITALS: O2SAT 97
[2019-10-21 19:19] VITALS: BP 184/89; PULSE 54; RESP 11; O2SAT 99
== END 2019-10-21 19:56 | disposition home or self-care (01) ==
PROVIDERS: Emergency Provider Emergency Medicine; Family Provider Family Medicine Geriatric Medicine; PCP Family Medicine Geriatric Medicine
DX: H81.11 Benign paroxysmal vertigo, right ear (principal); E03.9 Hypothyroidism, unspecified; E11.9 Type 2 diabetes mellitus without complications; E78.5 Hyperlipidemia, unspecified; I10 Essential (primary) hypertension; Z82.49 Family history of ischemic heart disease and other diseases of the circulatory system; Z87.891 Personal history of nicotine dependence; Z90.49 Acquired absence of other specified parts of digestive tract; Z91.81 History of falling
CPT/HCPCS: 99284

== ENCOUNTER → 2019-12-09 16:20 | Outpatient (CLI) | payer MEDICARE, SELFPAY ==
[2019-12-09 17:57] LABS: Absolute Neutrophil Count 6.2 X10^3/uL (2.0-7.7); Basophil# 0.03 X10^3/uL; Basophil% 0.4 % (0-1); Eosinophil# 0.18 X10^3/uL; Eosinophils% 2.1 % (0-5); Hematocrit 44.6 % (37-47); Hemoglobin 14.1 g/dL (12.0-15.0); Lymphocyte % 16.3 % (19-41); Mean Corp Hgb Conc 31.6 g/dL (32-36); Mean Corpuscular Hgb 28.8 pg (27.0-32.0); Mean Corpuscular Volume 91.2 fL (81-99); Mean Platelet Vol. 11.9 fl (6.2-12.0); Monocyte% 8.2 % (0-10); NRBC Flagged by Analyzer 0 % (0-5); Neutrophil # 6.22 X10^3/uL (2.7-7.7); Neutrophil % 72.5 % (47-70); Platelet Count 228 K/mm3 (150-450); RBC Distribution Width SD 43.7 fl (35.1-43.9); Red Blood Count 4.89 M/mm3 (4.2-5.4); White Blood Count 8.6 K/mm3 (4.4-11.0)
[2019-12-09 18:20] LABS: Anion Gap 4 (5-15); BUN 29 mg/dL (7-18); BUN/Creat Ratio 36.7 RATIO (10-20); Chloride 108 mmol/L (98-107); Creatinine, Serum 0.79 mg/dL (0.55-1.02); EST Glomerular Filtration Rate 75 mL/min (>60); Est Glom Filt Rate - Afr Amer 91 mL/min (>60); Glucose 98 mg/dL (74-106); Potassium 4.5 mmol/L (3.5-5.1); Sodium Level 138 mmol/L (136-145)
== END ==
PROVIDERS: PCP Family Medicine Geriatric Medicine; Visit Provider Family Medicine Geriatric Medicine
DX: Z01.818 Encounter for other preprocedural examination (principal)
CPT/HCPCS: 36415; 80048; 85025

== ENCOUNTER → 2019-12-11 16:31 | Outpatient (CLI) | payer MEDICARE, SELFPAY ==
--- NOTE | 2019-12-11 16:34 | CT_ITS ---
STUDY: CT CHEST WITH CONTRAST REASON FOR EXAM: Female, 74 years old. LUNG MASS ON RIGHT ? RADIATION DOSAGE (If Supplied By Facility): CTDIvol = ( 14.43 ) mGy, DLP = ( 519.59 ) mGycm TECHNIQUE: Transaxial imaging was performed following intravenous administration of IV 100ML ISOVUE 300. Multiplanar coronal and sagittal images were reformatted. Individualized dose optimization techniques were used for this CT. COMPARISON: Prior comparison studies are not available for review at this time. FINDINGS: There are scattered fibrotic changes of the lingula and bilateral lower lobes. No airspace consolidation. Smoothly marginated noncalcified nodule in the medial right upper lobe abuts the SVC on axial image 42. The nodule measures 8 x 10 mm. There is no demonstrated pleural abnormality. Normal heart and pericardium. Normal mediastinum. Normal hilar regions. Normal enhanced pulmonary arteries. Normal aorta arch and descending thoracic aorta. There are degenerative changes of the thoracic spine and bilateral (right more than left) shoulders. Dextroscoliosis noted. There is no demonstrated abnormality of the visualized upper abdomen. CT/Chest WITH Contrast IMPRESSION: 1. 8 x 10 mm noncalcified nodule in the medial right upper lobe abutting the mediastinum/SVC. Recommend additional evaluation with PET scan. Electronically Signed: Elder Bustillos MD ([place]) at 13:11 EST , Service support ,
== END ==
PROVIDERS: Family Provider Family Medicine Geriatric Medicine; PCP Family Medicine Geriatric Medicine; Referring Provider Family Medicine Geriatric Medicine; Visit Provider Family Medicine Geriatric Medicine
DX: R22.2 Localized swelling, mass and lump, trunk (principal)
CPT/HCPCS: 71260; Q9967

== ENCOUNTER → 2020-01-04 07:19 | Outpatient (CLI) | payer MEDICARE, SELFPAY ==
--- NOTE | 2020-01-04 08:00 | PET_ITS ---
EXAMINATION: FDG PET-CT INDICATIONS: A 74-year-old female with history of pulmonary nodularity. COMPARISON EXAMINATION: CT of the chest report dated 12/11/2019 INDEX LESION SIZE SUV INTERPRETATION Right upper hemithorax pulmonary parenchyma-right upper lobe 7.8-mm (frame 193) 1.2 Quantitative criteria for viable neoplasm are not fulfilled, sequential radiologic investigation recommended Lower midline pelvis may be contiguous to uterus 38.6-mm (frame 79) 9.7 May be further investigated with CT of the abdomen and pelvis with oral and intravenous contrast or pelvic ultrasound secondary to the quantitative degree of uptake NON-INDEX LESION SIZE SUV INTERPRETATION Right thoracic perihilum 1.6 Quantitative criteria for viable neoplasm are not fulfilled TECHNIQUE: Following the intravenous administration of 17.9 mCi of F-18 deoxyglucose via the left forearm, multiplanar image acquisitions of the neck, chest, abdomen and pelvis to level of mid thigh, obtained at one hour post radiopharmaceutical administration contemporaneously interpreted with the current CT of the neck, chest, abdomen and pelvis, to level of mid thigh, dated 01/04/[address] of the chest report dated 12/11/2019 reveals: BLOOD GLUCOSE LEVEL:?? 124 mg/dl?HEIGHT:?61 inches?WEIGHT: 150 lbs. FINDINGS: 1. Mild increased glucose metabolism is defined in the right upper medial lung-right upper lobe adjacent to the mediastinum. The calculated maximal standard uptake value is 1.2. The maximal axial diameter of the corresponding non-calcified density noted on review of CT of the chest dated 01/04/2020 is 7.8-mm (AP). 2. Mild increased glucose concentration is observed in the right thoracic perihilum generating a calculated maximal standard uptake value of 1.6. Quantitative criteria for viable neoplasm are not fulfilled. 3. There is an increase in glucose metabolism noted in the lower pelvis which appears contiguous and/or adjacent to the urinary bladder and may be associated with uterine mass formation. The calculated maximal standard uptake value is 9.7. The maximal axial diameter of the corresponding metabolic, morphologic abnormality on review of CT of the pelvis dated 01/04/2020 is 38.6-mm (AP). 4. Normal physiologic distribution of the radiopharmaceutical is apparent in the hepatic (4.0) and splenic parenchyma, both renal units, bladder and visualized intestinal tract. The visualized portion of the cerebral cortex demonstrate symmetric and preserved glucose metabolism. Prominent radiopharmaceutical concentration is noted in the lower pelvis which appears to represent a urinary bladder diverticulum. Diffuse radiopharmaceutical concentration is noted in all four quadrants of the abdomen and pelvis. Prominent radiopharmaceutical concentration is defined in the left ventricular myocardium commensurate with conversion from fatty acid to glucose metabolism in the fed state. (Nany and Segundo, Journal of Nuclear Medicine Technology 31:3, 2003). Pertinent CT findings are as follows: CHEST: There is atherosclerotic calcification defined in the thoracic aorta without evidence of dilatation-aneurysm formation. Coronary arterial calcification is observed. Bilateral axillary soft tissue densities with fatty hilus are non-glucose avid. There are no additional parenchymal densities-nodules defined in the right-left hemithorax demonstrating discernible increased FDG uptake. ABDOMEN AND PELVIS: The gallbladder appears surgically absent. There is atherosclerotic calcification defined in the abdominal aorta without evidence of dilatation-aneurysm formation. Abdominal-pelvic arterial calcification is observed. There appears to be evidence of a urinary bladder diverticulum contiguous to the cephalad surface of the urinary bladder. Subcentimeter bilateral inguinal soft tissue densities are ametabolic. SKELETAL: Degenerative changes are noted in the cervical, thoracic and lumbar spine. PET/PET/CT Tumor Base -Thigh Init IMPRESSION: 1. The right upper lobe mild increase in glucose metabolism. Does not fulfill quantitative criteria for viable neoplasm. . Repeat FDG PET CT imaging in 3-6 months is recommended to ensure stability, involution. 2. Increased glucose metabolism noted in the right thoracic perihilum does not fulfill quantitative criteria for viable neoplasm. 3. Facilitated radiopharmaceutical concentration observed in the lower pelvis which appears contiguous to the uterus may be further investigated with pelvic ultrasound and/or CT of the abdomen and pelvis for further evaluation. Electronic Signature Dima Delgadillo D.O. Electronically Signed: Dima Delgadillo DO at 23:37 EST Tel , Service support ,
== END ==
PROVIDERS: PCP Family Medicine Geriatric Medicine; Referring Provider Family Medicine Geriatric Medicine; Visit Provider Family Medicine Geriatric Medicine
DX: R91.8 Other nonspecific abnormal finding of lung field (principal)
CPT/HCPCS: 78815; A9552

== ENCOUNTER → 2020-04-22 11:17 | Outpatient (CLI) | payer MEDICARE, SELFPAY ==
[2020-04-22 12:38] LABS: Absolute Lymphocyte Count 1.51 X10^3/uL (0.83-4.51); Absolute Neutrophil Count 3.5 X10^3/uL (2.0-7.7); Basophil# 0.02 X10^3/uL; Basophil% 0.4 % (0-1); Eosinophils% 3.5 % (0-5); Hematocrit 42.9 % (37-47); Hemoglobin 13.8 g/dL (12.0-15.0); Lymphocyte # 1.51 X10^3/ul (4.0); Lymphocyte % 26.4 % (19-41); Mean Corp Hgb Conc 32.2 g/dL (32-36); Mean Corpuscular Hgb 29.7 pg (27.0-32.0); Mean Corpuscular Volume 92.5 fL (81-99); Mean Platelet Vol. 11.4 fl (6.2-12.0); Monocyte# 0.48 X10^3/uL; Monocyte% 8.4 % (0-10); NRBC Flagged by Analyzer 0 % (0-5); Neutrophil # 3.49 X10^3/uL (2.7-7.7); Neutrophil % 61.1 % (47-70); Platelet Count 177 K/mm3 (150-450); RBC Distribution Width SD 43.5 fl (35.1-43.9); Red Blood Count 4.64 M/mm3 (4.2-5.4); White Blood Count 5.7 K/mm3 (4.4-11.0)
[2020-04-22 13:00] LABS: Vitamin D,25 Hydroxy 27.9 ng/mL
[2020-04-22 13:36] LABS: AST(SGOT) 21 U/L (15-37); Alanine Aminotransfer ALT/SGPT 15 U/L (13-56); Albumin, Serum 3.3 g/dL (3.2-5.0); Alkaline Phosphatase 99 U/L (45-117); Anion Gap 4 (5-15); BUN 30 mg/dL (7-18); BUN/Creat Ratio 36.4 RATIO (10-20); Calcium,Total 9.6 mg/dL (8.5-10.1); Chloride 106 mmol/L (98-107); Creatinine, Serum 0.82 mg/dL (0.55-1.02); EST Glomerular Filtration Rate 72 mL/min (>60); Est Glom Filt Rate - Afr Amer 87 mL/min (>60); Globulin 3.2 g/dL (2.2-4.2); Glucose 133 mg/dL (74-106); Potassium 3.9 mmol/L (3.5-5.1); Protein, Total 6.5 g/dL (6.4-8.2); Sodium Level 140 mmol/L (136-145); Uric Acid 4.7 mg/dL (2.6-6.0)
== END ==
PROVIDERS: PCP Family Medicine Geriatric Medicine; Visit Provider Family Medicine Geriatric Medicine
DX: E11.9 Type 2 diabetes mellitus without complications (principal); E55.9 Vitamin D deficiency, unspecified; I10 Essential (primary) hypertension; M10.9 Gout, unspecified
CPT/HCPCS: 36415; 80053; 82306; 84443; 84550; 85025

== ENCOUNTER 2020-04-29 10:23 | Emergency (ER) | payer MEDICARE, SELFPAY ==
[2020-04-29 10:25] VITALS: BP 189/94; PULSE 63; RESP 18; TEMP 36.8; O2SAT 100
--- NOTE | 2020-04-29 10:34 | CT_ITS ---
STUDY: CT BRAIN WITHOUT CONTRAST REASON FOR EXAM: Female, 74 years old. PT STATED FALL TODAY, LACERATION TO POSTERIOR HEAD, ON BLOOD THINNERS RADIATION DOSAGE (If Supplied By Facility): CTDIvol = ( 60.81 ) mGy, DLP = ( 1021.47 ) mGycm TECHNIQUE: Transaxial CT imaging of the brain was performed without administration of intravenous contrast material. Individualized dose optimization techniques were used for this CT. COMPARISON: Comparison is made with prior examination dated August 22, 2019. FINDINGS: Normal soft tissue structures. Normal calvarium. There is disproportionate enlargement of the lateral and third ventricles, as compared to the extra-axial spaces. The findings suggest normal pressure hydrocephalus (NPH). There are areas of decreased attenuation within the white matter tracts of the supratentorial brain, consistent with microvascular disease changes. Normal basal ganglia and thalami. Normal brainstem. Normal cerebellum. There is no intracranial hemorrhage. There are no findings of an acute ischemic infarction. Atherosclerotic calcification of the vertebral arteries and cavernous portions of the internal carotid arteries bilaterally. Normal visualized paranasal sinuses. 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 Chronic involutional changes. Electronically Signed: Masood Wallace, at 11:44 EDT , Service support ,
--- NOTE | 2020-04-29 10:34 | CT_ITS ---
STUDY: CT CERVICAL SPINE WITHOUT CONTRAST REASON FOR EXAM: Female, 74 years old. History of fall. RADIATION DOSAGE (If Supplied By Facility): CTDIvol = ( 30.02 ) mGy, DLP = ( 600.12 ) mGycm TECHNIQUE: High resolution transaxial imaging was performed without contrast material. Sagittal and coronal images were reconstructed. Individualized dose optimization techniques were used for this CT. COMPARISON: Comparison is made with prior study dated August 22, 2019. FINDINGS: Normal craniovertebral junction. There are degenerative changes of the anterior atlantoaxial articulation. Normal odontoid process. Normal cervical lordosis. Multilevel spondylosis. C2-3: Minimal anterior listhesis of C2 on C3 most likely secondary to the facet joint osteoarthritis and hypertrophy worse on the left side. C3-4: Minimal anterior listhesis of C3 on C4 most likely secondary to facet joint arthritis and hypertrophy. Mild degree of bilateral neural foraminal stenosis. C4-5: Marked degree of disc space narrowing with spondylosis. Uncovertebral arthrosis. Mild degree of central canal stenosis due to posterior spondylosis more prominent on the left side. Stable 3 mm retrolisthesis of C3-4 on C5. C5-6: Marked degree of disc space narrowing with spondylosis. Uncovertebral arthrosis. Moderate degree of left neural foraminal stenosis. C6-7: Marked degree of disc space narrowing. No evidence of spinal stenosis. Normal visualized soft tissue structures. CT/Spine Cervical without Contras IMPRESSION: Multilevel degenerative changes, as described above. Stable examination. Electronically Signed: Masood Wallace, at 11:46 EDT , Service support ,
--- NOTE | 2020-04-29 10:36 | ED.VIS.FALL ---
History of Present Illness <Ana Luisa Mon - Last Filed: 04/29/20 11:49> Informant: Patient, Family, Polisher Numeral Occurred: Today Mechanism/Context: Same level fall, Slip Fall from Height (ft): standing Usually ambulates: Cane Location: back of head Quality of Pain: Dull Current Severity: Mild Maximum Severity: Mild Worsened by: nothing Relieved by: nothing Associated Symptoms: Negative for: Parasthesias, Weakness, Loss of function, Inability to ambulate, Loss of consciousness, Amnesia Length of loss of consciousness: none Narrative: 74-year-old female history of frequent falls secondary to chronic dizziness from suspected vertigo presents by squad after a fall and a posterior head laceration. She was in the shower and slipped and fell and hit the back of her head on the shower handle. No prodromal symptoms. No loss of consciousness. She has not had any other injuries. She denies any blurry vision, double vision, loss of vision, neck pain, numbness tingling or weakness, vomiting, difficulty with speech. She was able to stand up on her own after this fall. Denies any other injuries. Unknown last tetanus. She is on aspirin but no anticoagulation. Tetanus Immunization: >10 years Prior similar symptoms: Yes Recent Illness/Hospitalization: No <Farhad Lei - Last Filed: 04/29/20 12:30> Chief Complaint: Laceration Past Medical History <Gillian Monfer - Last Filed: 04/29/20 11:49> Prior records reviewed: Yes Past Medical History: - - Pretension, hyperlipidemia, type 2 diabetes, chronic dizziness, vertigo Surgical History: arthroscopy, knee - BL, cholecystectomy, tonsillectomy Lives: With Family Smoking Status: Former smoker Alcohol: None Drugs: None - Family History Maternal Family History: Reports: Hypertension <Farhad Lei - Last Filed: 04/29/20 12:30> - Allergies and Home Meds Allergies/Adverse Reactions: Allergies diclofenac sodium [From [employer]] Allergy (Verified 08/22/19 09:29) kidneys shut down KIDNEYS SHUT DOWN PT STATES misoprostol [From [employer]] Allergy (Verified 08/22/19 09:29) kidneys shut down KIDNEYS SHUT DOWN PT STATES Primary Care Physician: Beltran Garza Chi, MD [Primary Care Provider] - 7 Days for suture removal Review of Systems All systems negative except as indicated General: Denies: Chills, Fever, Sweats Eyes: Denies: Visual changes - left, Visual changes - right, Visual changes - bilaterally, Blurred vision - left, Blurred vision - right, Blurred Vision - bilaterally, Diplopia ENT: Denies: Bilateral ear pain, Rhinorrhea, Sore throat Cardiovascular: Denies: Chest pain, Palpitations Respiratory: Denies: Dyspnea, Cough, Dyspnea on exertion Gastrointestinal: Denies: Abdominal pain, Nausea, Vomiting, Diarrhea, Melena, Hematochezia Genitourinary: Denies: Dysuria, Hematuria, Frequency Musculoskeletal: Denies: Neck pain, Back pain, Extremity Pain Skin: Reports: Abrasions. Denies: Rash, Abscess, Wounds Neurological: Reports: Headache. Denies: Weakness, Numbness <Farhad Lei - Last Filed: 04/29/20 12:30> Physical Exam Vital Signs/Narrative: Vital Signs Temp Pulse Resp BP Pulse Ox 04/29/20 10:25 98.3 F 63 18 189/94 H 100 <Ana Luisa Mon - Last Filed: 04/29/20 11:49> Vital Signs/Narrative: Vital Signs Temp Pulse Resp BP Pulse Ox 04/29/20 10:25 98.3 F 63 18 189/94 H 100 Inital Vital Signs reviewed: Yes General: Well nourished, Well developed Head: Normocephalic, Atraumatic Eyes: Perrl, EOMI ENT: TM's clear, No hemotympanum or drainage, No trauma Neck: Nontender, Full ROM. 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 Chronic involutional changes. Electronically Signed: Masood Wallace, at 11:44 EDT , Service support , Cervical Spine CT 04/29/20 10:34 IMPRESSION: Multilevel degenerative changes, as described above. Stable examination. Electronically Signed: Masood Wallace, at 11:46 EDT , Service support , 04/29/20 10:34 Brain/Head without Contrast [CT] Stat CT Cervical [Spine Cervical without Contras] [CT] Stat - Medical Decision Making Patient seen and evaluated with physicians marketing assistant manager. Patient independently examined and interviewed. Patient presents after a slip and fall in the shower. She is a laceration to the left posterior parietal scalp. Patient states she has some stiffness in her shoulders but that is normal for her. She has some mild tenderness in her neck. She is on aspirin. Head neck examination was a 3 cm laceration to left posterior parietal scalp. No C-spine tenderness on exam. Heart regular rate and rhythm. Lung sounds clear. Abdomen is soft nontender. Neuro exam is normal. CT scan of the head and neck are unremarkable. Scalp repair performed by physicians marketing assistant manager. Please see procedure note. On repeat evaluation patient is resting comfortably. She be discharged home with family. She is to have chris removed in 5 to 7 days. Disposition: Discharge <Ana Luisa Mon - Last Filed: 04/29/20 11:49> - Medical Decision Making Patient's laceration was anesthetized with lidocaine with epinephrine. It was thoroughly irrigated with sterile saline pressure wash syringe cleansed with Betadine and closed with chris. See procedure note. <Farhad Lei - Last Filed: 04/29/20 12:30> Procedures - Lacerations No standard instances Length: 3 cm Depth: Skin Shape: Linear Prep: Sterile Conditions, Chlorhexadine Laceration Repair: Lidocaine with epi, Local, Wound explored Irrigated (ml): 100 Number of Sutures/Chris: 6 Suture Information: - - chris <Farhad Lei - Last Filed: 04/29/20 12:30> Disposition: Home <Ana Luisa Mon - Last Filed: 04/29/20 11:49> ED Disposition <Ana Luisa Mon - Last Filed: 04/29/20 11:49> <Farhad Lei - Last Filed: 04/29/20 12:30> - Plan for ED Patient: Disposition: Home or Assisted Living Diagnosis: Scalp laceration Instructions: ED Laceration Scalp Sutures or [place] Referrals: Beltran Garza Chi, MD [Primary Care Provider] - 7 Days for suture removal
[2020-04-29] MEDS: Diphth,Pertuss(Acell),Tet Vac 0.5 ML Vial IM (10:43)
[2020-04-29 12:02] VITALS: BP 159/78; PULSE 69; RESP 16; O2SAT 96
== END 2020-04-29 12:03 | disposition home or self-care (01) ==
PROVIDERS: Emergency Provider Physician Assistant Medical; PCP Family Medicine Geriatric Medicine
DX: S01.01XA Laceration without foreign body of scalp, initial encounter (principal); W01.0XXA Fall on same level from slipping, tripping and stumbling without subsequent striking against object, initial encounter; E11.9 Type 2 diabetes mellitus without complications; E78.5 Hyperlipidemia, unspecified; Z79.01 Long term (current) use of anticoagulants; Z79.82 Long term (current) use of aspirin; Z82.49 Family history of ischemic heart disease and other diseases of the circulatory system; Z87.891 Personal history of nicotine dependence; Z90.49 Acquired absence of other specified parts of digestive tract; R29.6 Repeated falls
CPT/HCPCS: 12002; 70450; 72125; 90471; 90715; 99284

== ENCOUNTER → 2020-06-17 11:56 | Outpatient (CLI) | payer MEDICARE, SELFPAY | PROVIDERS: PCP Family Medicine Geriatric Medicine; Visit Provider Family Medicine Geriatric Medicine | DX: E03.9 Hypothyroidism, unspecified (principal) | CPT/HCPCS: 36415; 84443 ==

== ENCOUNTER 2020-07-29 22:19 | Emergency (ER) | payer MEDICARE, SELFPAY ==
[2020-07-29 22:22] VITALS: BP 189/87; PULSE 88; RESP 18; TEMP 36.5; O2SAT 100; BMI 29.4
--- NOTE | 2020-07-29 22:40 | ED.DCSUM_ITS ---
History of Present Illness Chief Complaint: Nausea/Vomiting Informant: Patient, Family Onset: Today Current Severity: Mild Maximum Severity: Mild Narrative: Patient presents with nausea and vomiting that started after dinner tonight. Patient does report 2 falls at home today. She did not strike her head or lose consciousness. She denies a headache. Daughter states she was complaining of an abdominal ache prior to dinner and then started vomiting after eating. No fever or chills. - Past Medical History (1) Depression Status: Chronic (2) Diabetes mellitus, type 2 Status: Chronic (3) Hyperlipidemia Status: Chronic (4) Hypertension Status: Chronic (5) Hypothyroidism Status: Chronic Past Medical History - Allergies and Home Meds Allergies/Adverse Reactions: Allergies diclofenac sodium [From [employer]] Allergy (Verified 07/29/20 22:27) kidneys shut down KIDNEYS SHUT DOWN PT STATES misoprostol [From [employer]] Allergy (Verified 07/29/20 22:27) kidneys shut down KIDNEYS SHUT DOWN PT STATES Primary Care Physician: Beltran Garza Chi, MD [Primary Care Provider] - Prior records reviewed: Yes Surgical History: arthroscopy, knee - BL, cholecystectomy, tonsillectomy Smoking Status: Former smoker - Family History Maternal Family History: Reports: Hypertension Review of Systems General: Denies: Chills, Fever Eyes: Denies: Visual changes - bilaterally ENT: Denies: Bilateral ear pain Cardiovascular: Denies: Chest pain Respiratory: Denies: Dyspnea, Cough Gastrointestinal: Reports: Nausea, Vomiting. Denies: Abdominal pain Genitourinary: Reports: - - Strong odor to urine. Denies: Dysuria Musculoskeletal: Denies: Swelling, Extremity Pain Skin: Denies: Rash Hematologic: Denies: Easy bruising, Easy bleeding Allergy: Denies: Uticaria Physical Exam Vital Signs/Narrative: Vital Signs Temp Pulse Resp BP Pulse Ox 07/29/20 22:22 97.7 F L 88 18 189/87 H 100 Inital Vital Signs reviewed: Yes General: Well nourished, Well developed Head: Normocephalic ENT: Moist mucous membranes Neck: Supple Cardiovascular: Regular rate, Regular rhythm Respiratory: No distress, CTA bilaterally Abdomen: Soft, Nontender, Hypoactive bowel sounds Extremities: Nontender Skin: Normal color, No rash Neurological: Alert, Oriented x3 Psychological: Normal affect Diagnostic/Tx/Re-eval Impressions Brain CT 07/30/20 22:38 IMPRESSION: No intracranial hemorrhage 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 Cloudy Urine pH 6.5 Ur Specific [place] 1.015 Urine Protein 30 H Urine Glucose (UA) Normal Urine Ketones 150 H Urine Occult Blood 25 H Urine Nitrite Positive H Urine Bilirubin 1 H Urine Urobilinogen 4 H Ur Leukocyte Esterase 100 H Urine RBC 5-10 SEEN Urine WBC 25-50 SEEN Ur Squamous Epith Cells 0-5 SEEN Urine Bacteria 3+ Hyaline Casts 0-5 SEEN Urine Mucus 1+ - Medical Decision Making Blood work and IV fluids were ordered however after multiple attempts by multiple nurses we were unable to establish an IV line. Patient was given Zofran ODT. Her vomiting just started this evening I would not expect significant electrolyte abnormalities. Urine is definitely infected and urine culture has been sent. She is given p.o. Keflex. ED Disposition - Plan for ED Patient: Disposition: Home or Assisted Living Diagnosis: Vomiting, UTI (urinary tract infection) Instructions: ED CYSTITIS Female Adult, ED Nausea Vomiting Adult Prescriptions: Cephalexin [Keflex] 500 mg PO Q12 #14 capsule Ondansetron [Zofran Odt] 4 mg PO Q8H PRN PRN #10 tablet PRN Reason: Nausea Referrals: Beltran Garza Chi, MD [Primary Care Provider] - 3-5 Days
[2020-07-29] MEDS: Ondansetron ODT 4 MG Tablet PO (23:33)
--- NOTE | 2020-07-29 23:51 | ED.RN ---
honorio to obtain IV, This nurse attempted 2 time, geraldine fox attempted 2 times. Md warren made aware. to see pt. pt resting in a position of comfort no further orders at this time.
[2020-07-30 00:01] LABS: Color, Urine Yellow (Yellow); Glucose, Dipstick Normal (Normal); Leukocyte Esterase-Dipstick 100 /ul (Negative); Nitrite-Dipstick Positive (Negative); Occult Blood-Urine 25 /ul (Negative); Protein-Dipstick 30 mg/dl (Negative); Specific Gravity, Urine 1.015 (1.002-1.030); Urine Clarity Sl. Cloudy (Clear); Urine Urobilinogen 4 mg/dl (Normal); Urine pH 6.5 (5.0 - 8.0)
[2020-07-30 00:03] LABS: Ketone-Dipstick 150 mg/dl (Negative); Urine Bilirubin Dipstick 1 mg/dL (Negative)
[2020-07-30 00:22] LABS: Bacteria 3+ /hpf (None Seen); Hyaline Cast 0-5 SEEN /lpf (0-5); White Blood Cells 25-50 SEEN /hpf (0-5)
[2020-07-30 00:23] LABS: Mucous, Urine 1+ /hpf (<or=2+); Red Blood Cells-Urine 5-10 SEEN /hpf (0-5); Squamous Epithelial Cells - UA 0-5 SEEN /hpf (5-10)
[2020-07-30] MEDS: Cephalexin 250 MG Capsule 500 MG PO (00:47)
[2020-07-30 00:50] VITALS: BP 134/77; PULSE 67; RESP 15; O2SAT 98
--- NOTE | 2020-07-30 22:38 | CT_ITS ---
STUDY: CT BRAIN WITHOUT CONTRAST REASON FOR EXAM: Female, 74 years old. S/P FALL X 3, PT HAS N/V, TAKES ASPIRIN, HX HTN, DIAB, GB RADIATION DOSAGE (If Supplied By Facility): CTDIvol = ( 44.99 ) mGy, DLP = ( 829.85 ) mGycm TECHNIQUE: Transaxial CT imaging of the brain was performed without administration of intravenous contrast material. Individualized dose optimization techniques were used for this CT. COMPARISON: Head CT 04/29/2020 FINDINGS: Normal soft tissue structures. There is stable benign left frontal skull asymmetric cortical thickening, bony exostosis less likely ossified meningioma There is stable disproportionate enlargement of the lateral and third ventricles compared to the extra-axial spaces. Stable mild deep white matter periventricular hypodensities. Normal basal ganglia and thalami. Normal brainstem. Normal cerebellum. There is no intracranial hemorrhage. There are no findings of an acute ischemic infarction. The stable mild mucosal thickening of the paranasal sinuses and stable mild deviation bony nasal septum to the right. There is stable edema of the turbinates. There is stable atherosclerotic calcifications. 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
== END 2020-07-30 01:09 | disposition home or self-care (01) ==
PROVIDERS: Emergency Provider Emergency Medicine; PCP Family Medicine Geriatric Medicine
DX: N39.0 Urinary tract infection, site not specified (principal); R11.2 Nausea with vomiting, unspecified; E03.9 Hypothyroidism, unspecified; E11.9 Type 2 diabetes mellitus without complications; E78.5 Hyperlipidemia, unspecified; I10 Essential (primary) hypertension; Z79.82 Long term (current) use of aspirin; Z82.49 Family history of ischemic heart disease and other diseases of the circulatory system; Z87.891 Personal history of nicotine dependence; Z90.49 Acquired absence of other specified parts of digestive tract; F32.9 Major depressive disorder, single episode, unspecified
CPT/HCPCS: 70450; 81001; 87077; 87086; 87088; 87186; 96361; 96374; 99285; J7030; A4216; J2405

== ENCOUNTER 2020-08-10 18:32 | Emergency (ER) | payer MEDICARE, SELFPAY ==
[2020-08-10 18:33] VITALS: BP 179/84; PULSE 86; RESP 20; TEMP 36.6; O2SAT 100; BMI 28.3
--- NOTE | 2020-08-10 18:50 | RAD_ITS ---
STUDY: X-RAY - LEFT SHOULDER REASON FOR EXAM: Female, 74 years old. Fall. TECHNIQUE: 2 view(s) of the shoulder. COMPARISON: Left shoulder, 05/25/2020. FINDINGS: There is cephalad migration of the humeral head consistent with rotator cuff pathology. There is degenerative arthrosis of the acromioclavicular joint without inferior osseous spur formation. Normal acromion. There is no acute fracture, dislocation or destructive osseous pathology. Normal humeral head and visualized proximal humerus. The soft tissue structures are unremarkable. Normal visualized pulmonary apex. RAD/Shoulder min 2 Views IMPRESSION: Degenerative changes of the shoulder. There is no acute fracture or dislocation. Electronically Signed: Mann Simon DO at 19:34 EDT Tel [phone], Service support ,
--- NOTE | 2020-08-10 18:50 | RAD_ITS ---
STUDY: X-RAY - LEFT ELBOW REASON FOR EXAM: Female, 74 years old. Fall. TECHNIQUE: 3 view(s) of the elbow. COMPARISON: None. FINDINGS: Normal visualized humerus, radius and ulna. Mild arthrosis of the radiocapitellar and ulnotrochlear articulations. No acute fracture or dislocation The soft tissue structures are unremarkable. RAD/Elbow min 3 Views IMPRESSION: Mild degenerative changes of the elbow. There is no acute fracture or dislocation. Electronically Signed: Mann Simon DO at 19:31 EDT Tel [phone], Service support ,
--- NOTE | 2020-08-10 18:51 | ED.VIS.GEN ---
History of Present Illness Chief Complaint: Fall Narrative: This patient is a 74-year-old female who presents after a fall. She was taking her pants off in the bathroom and fell. She does have a history of prior falls. She has a history of Parkinson's. She was not dizzy or lightheaded she just lost her balance while changing. She complains of left shoulder pain. No head injury or loss of consciousness. She is not anticoagulated. She denies injury to the torso no chest pain abdominal pain difficulty breathing or back pain. Past Medical History - Allergies and Home Meds Allergies/Adverse Reactions: Allergies diclofenac sodium [From [employer]] Allergy (Verified 08/10/20 18:36) kidneys shut down KIDNEYS SHUT DOWN PT STATES misoprostol [From [employer]] Allergy (Verified 08/10/20 18:36) kidneys shut down KIDNEYS SHUT DOWN PT STATES Primary Care Physician: Beltran Garza Chi, MD [Primary Care Provider] - Past Medical History: - - Hypertension, hyperlipidemia, hypothyroidism Surgical History: arthroscopy, knee - BL, cholecystectomy, tonsillectomy Smoking Status: Former smoker - Family History Maternal Family History: Reports: Hypertension Review of Systems All systems negative except as indicated General: Denies: Fever Eyes: Denies: Visual changes - bilaterally ENT: Denies: Bilateral ear pain Cardiovascular: Denies: Chest pain Respiratory: Denies: Dyspnea Musculoskeletal: Reports: Extremity Pain Skin: Denies: Rash Neurological: Denies: Headache Physical Exam Vital Signs/Narrative: Vital Signs Temp Pulse Resp BP Pulse Ox 08/10/20 18:33 97.9 F 86 20 H 179/84 H 100 Inital Vital Signs reviewed: Yes General: Well nourished, Well developed Head: Normocephalic Eyes: EOMI ENT: Moist mucous membranes Neck: Supple Cardiovascular: Regular rate, Regular rhythm Respiratory: No distress, CTA bilaterally Abdomen: Soft Extremities: - - Patient has tenderness along the left clavicle and pain with range of motion of the left shoulder she has some mild tenderness of the left elbow but is able to go through complete range of motion. No tenderness at the wrist. She has active full range of motion without pain of the bilateral lower extremities and right upper extremity Skin: Normal color Neurological: Alert Psychological: Normal affect Diagnostic/Tx/Re-eval Impressions Elbow X-Ray 08/10/20 18:50 IMPRESSION: Mild degenerative changes of the elbow. There is no acute fracture or dislocation. Electronically Signed: Mann Simon at 19:31 EDT Tel [phone], Service support , Shoulder X-Ray 08/10/20 18:50 IMPRESSION: Degenerative changes of the shoulder. There is no acute fracture or dislocation. Electronically Signed: Mann Simon at 19:34 EDT Tel [phone], Service support , Clavicle X-Ray 08/10/20 19:00 IMPRESSION: Degenerative changes of the acromioclavicular joint. There is no fracture or dislocation. Electronically Signed: Mann SimonDO at 19:33 EDT Tel [phone], Service support , 08/10/20 18:50 Elbow min 3 Views [RAD] Stat Shoulder min 2 Views [RAD] Stat 08/10/20 19:00 Clavicle [RAD] Stat - Medical Decision Making X-rays are negative as above. Patient advised on supportive care and was discharged home. ED Disposition - Plan for ED Patient: Disposition: Home or Assisted Living Diagnosis: Shoulder contusion, Elbow contusion Instructions: ED EXTREMITY CONTUSION Upper Referrals: Beltran Garza Chi, MD [Primary Care Provider] -
--- NOTE | 2020-08-10 19:00 | RAD_ITS ---
STUDY: X-RAY - LEFT CLAVICLE REASON FOR EXAM: Female, 74 years old. Fall. TECHNIQUE: 2 view(s) of the clavicle. COMPARISON: Left shoulder, 05/25/2019. FINDINGS: Normal clavicle. There is minimal widening of the AC joint consistent with a Type I acromioclavicular dislocation. There is no widening of the coracoclavicular distance. Normal visualized sternoclavicular articulation. There is marked degenerative changes of the glenohumeral joint. Normal visualized pulmonary apex. RAD/Clavicle IMPRESSION: Degenerative changes of the acromioclavicular joint. There is no fracture or dislocation. Electronically Signed: Mann Simon DO at 19:33 EDT Tel [phone], Service support ,
[2020-08-10] MEDS: Acetaminophen 500 MG Tablet 1000 MG PO (19:54)
[2020-08-10 19:57] VITALS: BP 164/70; PULSE 76; RESP 18; O2SAT 96
== END 2020-08-10 19:57 | disposition home or self-care (01) ==
PROVIDERS: Emergency Provider Emergency Medicine; PCP Family Medicine Geriatric Medicine
DX: S40.012A Contusion of left shoulder, initial encounter (principal); S50.02XA Contusion of left elbow, initial encounter; W18.30XA Fall on same level, unspecified, initial encounter; Y93.9 Activity, unspecified; Y92.002 Bathroom of unspecified non-institutional (private) residence as the place of occurrence of the external cause; Y99.9 Unspecified external cause status; E03.9 Hypothyroidism, unspecified; E78.5 Hyperlipidemia, unspecified; I10 Essential (primary) hypertension; Z82.49 Family history of ischemic heart disease and other diseases of the circulatory system; Z90.49 Acquired absence of other specified parts of digestive tract
CPT/HCPCS: 73000; 73030; 73080; 99284

== ENCOUNTER → 2020-09-07 15:43 | Outpatient (CLI) | payer MEDICARE, SELFPAY ==
[2020-08-10 18:33] VITALS: BMI 28.3
== END ==
LOC: POLAB3 15:43 → LABSPEC 15:45
PROVIDERS: PCP Family Medicine Geriatric Medicine; Visit Provider Family Medicine Geriatric Medicine
DX: N39.0 Urinary tract infection, site not specified (principal)
CPT/HCPCS: 87086; 87088

== ENCOUNTER → 2020-12-09 11:35 | Outpatient (CLI) | payer MEDICARE, SELFPAY ==
[2020-12-04 12:45] VITALS: BMI 28.0
[2020-12-09 13:11] LABS: Absolute Lymphocyte Count 1.44 X10^3/uL (0.83-4.51); Absolute Neutrophil Count 2.7 X10^3/uL (2.0-7.7); Basophil# 0.03 X10^3/uL; Basophil% 0.6 % (0-1); Eosinophil# 0.38 X10^3/uL; Eosinophils% 7.5 % (0-5); Hematocrit 40.8 % (37-47); Hemoglobin 12.8 g/dL (12.0-15.0); Lymphocyte # 1.44 X10^3/ul (4.0); Lymphocyte % 28.5 % (19-41); Mean Corp Hgb Conc 31.4 g/dL (32-36); Mean Corpuscular Hgb 28.2 pg (27.0-32.0); Mean Corpuscular Volume 89.9 fL (81-99); Mean Platelet Vol. 12.5 fl (6.2-12.0); Monocyte# 0.46 X10^3/uL; Monocyte% 9.1 % (0-10); NRBC Flagged by Analyzer 0 % (0-5); Neutrophil # 2.73 X10^3/uL (2.7-7.7); Neutrophil % 54.1 % (47-70); Platelet Count 200 K/mm3 (150-450); RBC Distribution Width CV 12.5 % (11.6-14.6); RBC Distribution Width SD 41.5 fl (35.1-43.9); Red Blood Count 4.54 M/mm3 (4.2-5.4); White Blood Count 5.1 K/mm3 (4.4-11.0)
[2020-12-09 13:38] LABS: ALB/GLOB Ratio 1.2 RATIO (0.9-2.4); AST(SGOT) 14 U/L (15-37); Alanine Aminotransfer ALT/SGPT 9 U/L (13-56); Albumin, Serum 3.2 g/dL (3.2-5.0); Alkaline Phosphatase 128 U/L (45-117); Anion Gap 6 (5-15); BUN 25 mg/dL (7-18); BUN/Creat Ratio 43.1 RATIO (10-20); Calcium,Total 9.2 mg/dL (8.5-10.1); Chloride 109 mmol/L (98-107); Creatinine, Serum 0.58 mg/dL (0.55-1.02); EST Glomerular Filtration Rate 107 mL/min (>60); Est Glom Filt Rate - Afr Amer 130 mL/min (>60); Globulin 2.7 g/dL (2.2-4.2); Glucose 102 mg/dL (74-106); Potassium 4.1 mmol/L (3.5-5.1); Protein, Total 5.9 g/dL (6.4-8.2); Sodium Level 142 mmol/L (136-145); Thyroid Stim Hormone (TSH) < 0.01 uIU/mL (0.358-3.74); Vitamin D,25 Hydroxy 30.4 ng/mL
== END ==
PROVIDERS: PCP Family Medicine Geriatric Medicine; Visit Provider Family Medicine Geriatric Medicine
DX: E11.9 Type 2 diabetes mellitus without complications (principal); E55.9 Vitamin D deficiency, unspecified; I10 Essential (primary) hypertension
CPT/HCPCS: 36415; 80053; 82306; 84443; 85025

== ENCOUNTER → 2021-01-12 16:05 | Outpatient (CLI) | payer MEDICARE, SELFPAY ==
[2020-12-04 12:45] VITALS: BMI 28.0
== END ==
PROVIDERS: PCP Family Medicine Geriatric Medicine; Visit Provider Family Medicine Geriatric Medicine
DX: N39.0 Urinary tract infection, site not specified (principal)
CPT/HCPCS: 87086; 87088

== ENCOUNTER → 2021-02-22 16:45 | Outpatient (CLI) | payer MEDICARE, SELFPAY ==
[2020-12-04 12:45] VITALS: BMI 28.0
== END ==
PROVIDERS: PCP Family Medicine Geriatric Medicine; Visit Provider Family Medicine Geriatric Medicine
DX: N39.0 Urinary tract infection, site not specified (principal)
CPT/HCPCS: 87086; 87088

== ENCOUNTER → 2021-03-17 11:03 | Outpatient (CLI) | payer MEDICARE, SELFPAY ==
[2020-12-04 12:45] VITALS: BMI 28.0
[2021-03-17 12:16] LABS: Absolute Lymphocyte Count 1.27 X10^3/uL (0.83-4.51); Absolute Neutrophil Count 4.1 X10^3/uL (2.0-7.7); Basophil# 0.03 X10^3/uL; Basophil% 0.5 % (0-1); Eosinophil# 0.42 X10^3/uL; Eosinophils% 6.7 % (0-5); Hematocrit 41.1 % (37-47); Hemoglobin 12.6 g/dL (12.0-15.0); Lymphocyte # 1.27 X10^3/ul (0.83-4.51); Lymphocyte % 20.2 % (19-41); Mean Corp Hgb Conc 30.7 g/dL (32-36); Mean Corpuscular Hgb 27.5 pg (27.0-32.0); Mean Corpuscular Volume 89.5 fL (81-99); Mean Platelet Vol. 12.3 fl (6.2-12.0); Monocyte# 0.46 X10^3/uL; Monocyte% 7.3 % (0-10); NRBC Flagged by Analyzer 0 % (0-5); Neutrophil # 4.09 X10^3/uL (2.7-7.7); Platelet Count 194 K/mm3 (150-450); RBC Distribution Width CV 14.5 % (11.6-14.6); RBC Distribution Width SD 47.2 fl (35.1-43.9); Red Blood Count 4.59 M/mm3 (4.2-5.4); White Blood Count 6.3 K/mm3 (4.4-11.0)
[2021-03-17 12:31] LABS: Vitamin D,25 Hydroxy 23.4 ng/mL
[2021-03-17 12:42] LABS: ALB/GLOB Ratio 1.1 RATIO (0.9-2.4); AST(SGOT) 20 U/L (15-37); Alanine Aminotransfer ALT/SGPT 14 U/L (13-56); Albumin, Serum 3.3 g/dL (3.2-5.0); Alkaline Phosphatase 138 U/L (45-117); Anion Gap 3 (5-15); BUN 31 mg/dL (7-18); BUN/Creat Ratio 38.8 RATIO (10-20); Calcium,Total 8.5 mg/dL (8.5-10.1); Chloride 104 mmol/L (98-107); EST Glomerular Filtration Rate 74 mL/min (>60); Est Glom Filt Rate - Afr Amer 90 mL/min (>60); Glucose 139 mg/dL (74-106); Protein, Total 6.3 g/dL (6.4-8.2); Sodium Level 137 mmol/L (136-145); Thyroid Stim Hormone (TSH) 3.46 uIU/mL (0.358-3.74)
== END ==
PROVIDERS: PCP Family Medicine Geriatric Medicine; Visit Provider Family Medicine Geriatric Medicine
DX: E11.9 Type 2 diabetes mellitus without complications (principal); I10 Essential (primary) hypertension; E55.9 Vitamin D deficiency, unspecified
CPT/HCPCS: 36415; 80053; 82306; 84443; 85025

== ENCOUNTER → 2021-05-12 08:59 | Outpatient (CLI) | payer MEDICARE, SELFPAY ==
[2020-12-04 12:45] VITALS: BMI 28.0
[2021-05-12 12:35] LABS: Absolute Lymphocyte Count 1.36 X10^3/uL (0.83-4.51); Absolute Neutrophil Count 3.9 X10^3/uL (2.0-7.7); Basophil# 0.02 X10^3/uL; Basophil% 0.3 % (0-1); Eosinophil# 0.31 X10^3/uL; Hematocrit 40.1 % (37-47); Lymphocyte # 1.36 X10^3/ul (0.83-4.51); Lymphocyte % 22.1 % (19-41); Mean Corp Hgb Conc 32.4 g/dL (32-36); Mean Corpuscular Volume 89.3 fL (81-99); Monocyte# 0.54 X10^3/uL; Monocyte% 8.8 % (0-10); NRBC Flagged by Analyzer 0 % (0-5); Neutrophil # 3.91 X10^3/uL (2.7-7.7); Neutrophil % 63.6 % (47-70); Platelet Count 217 K/mm3 (150-450); RBC Distribution Width CV 14.4 % (11.6-14.6); RBC Distribution Width SD 46.9 fl (35.1-43.9); Red Blood Count 4.49 M/mm3 (4.2-5.4); White Blood Count 6.2 K/mm3 (4.4-11.0)
[2021-05-12 12:56] LABS: Vitamin D,25 Hydroxy 31.4 ng/mL
[2021-05-12 13:08] LABS: AST(SGOT) 19 U/L (15-37); Alanine Aminotransfer ALT/SGPT 11 U/L (13-56); Albumin, Serum 3.3 g/dL (3.2-5.0); Alkaline Phosphatase 123 U/L (45-117); Anion Gap 8 (5-15); BUN 26 mg/dL (7-18); Calcium,Total 8.9 mg/dL (8.5-10.1); Chloride 106 mmol/L (98-107); Creatinine, Serum 0.74 mg/dL (0.55-1.02); EST Glomerular Filtration Rate 81 mL/min (>60); Est Glom Filt Rate - Afr Amer 98 mL/min (>60); Globulin 3.3 g/dL (2.2-4.2); Glucose 94 mg/dL (74-106); Potassium 3.9 mmol/L (3.5-5.1); Protein, Total 6.6 g/dL (6.4-8.2); Sodium Level 137 mmol/L (136-145); Thyroid Stim Hormone (TSH) 0.64 uIU/mL (0.358-3.74)
== END ==
PROVIDERS: PCP Family Medicine Geriatric Medicine; Referring Provider Family Medicine Geriatric Medicine; Visit Provider Family Medicine Geriatric Medicine
DX: E11.9 Type 2 diabetes mellitus without complications (principal); E55.9 Vitamin D deficiency, unspecified; I10 Essential (primary) hypertension; N39.0 Urinary tract infection, site not specified
CPT/HCPCS: 36415; 80053; 82306; 84443; 85025; 87086; 87088

== ENCOUNTER 2021-05-14 20:55 | Observation (INO) | payer MEDICARE, SELFPAY ==
[2020-12-04 12:45] VITALS: BMI 28.0
[2021-05-14 20:56] VITALS: BP 148/83; PULSE 73; RESP 18; TEMP 36.6; O2SAT 98; BMI 27.0
[2021-05-14 21:00] VITALS: BP 148/83; PULSE 73; RESP 18; TEMP 36.6; O2SAT 98
--- NOTE | 2021-05-14 21:11 | RAD_ITS ---
STUDY: X-RAY CHEST REASON FOR EXAM: Female, 75 years old. sob TECHNIQUE: 1 view COMPARISON: Prior chest radiograph of 03/17/2018 FINDINGS: The lungs are clear and expanded. There is no demonstrated pleural abnormality. Normal size heart. Normal mediastinum and kamari. Normal visualized pulmonary arteries. There is atherosclerotic calcification of the aortic arch . Degenerative changes of the thoracic spine with a mild dextrocurvature. There is degenerative osteoarthritis of the bilateral shoulders. There is no demonstrated abnormality of the visualized soft tissue structures of the upper abdomen. RAD/Chest 1 View (Portable) IMPRESSION: No acute cardiopulmonary findings or changes. Negative for new consolidation, focal atelectasis, pleural effusion or cardiomegaly. Stable atherosclerotic changes of the aorta. Electronically Signed: Radha Guzman MD at 21:51 EDT , Service support ,
--- NOTE | 2021-05-14 21:11 | CT_ITS ---
STUDY: CT BRAIN WITHOUT CONTRAST REASON FOR EXAM: Female, 75 years old. confusion RADIATION DOSAGE (If Supplied By Facility): CTDIvol = ( 44.99 ) mGy, DLP = ( 812.98 ) mGycm TECHNIQUE: Transaxial CT imaging of the brain was performed without administration of intravenous contrast material. Individualized dose optimization techniques were used for this CT. COMPARISON: Prior head CT examination of 07/30/2020 FINDINGS: Normal soft tissue structures. Stable small internal exostosis of the left frontal bone . Otherwise normal calvarium. Stable atrophy and ventriculomegaly. There are areas of decreased attenuation within the white matter tracts of the supratentorial brain, consistent with microvascular disease changes. Normal basal ganglia and thalami. Normal brainstem. Normal cerebellum. There is no intracranial hemorrhage. There are no findings of an acute ischemic infarction. CT/Brain/Head without Contrast IMPRESSION: No acute intracranial changes or findings. Negative for hemorrhage, hematoma or extra-axial fluid collection. Negative for demarcation of a new nonhemorrhagic infarct zone. Negative for mass density. Stable cortical atrophy and stable ventriculomegaly. Chronic small vessel ischemic changes. Carotid and vertebral artery calcifications. Small internal exostosis of the left frontal bone unchanged from prior exam. Electronically Signed: Radha Guzman MD at 21:50 EDT , Service support ,
--- NOTE | 2021-05-14 21:12 | EKG12_ITS ---
Test Reason : WEAKNESS Blood Pressure : / mmHG Vent. Rate : 074 BPM Atrial Rate : 074 BPM P-R Int : 162 ms QRS Dur : 082 ms QT Int : 450 ms P-R-T Axes : 072 030 076 degrees QTc Int : 499 ms Normal sinus rhythm with sinus arrhythmia Normal ECG Confirmed by KAYDEN VERA, LATRICIA ([id number]), marketing editor MAKAYLA ALEMAN ([id number]) on 05/16/2021 9:09:45 AM Referred By: Confirmed By:LATRICIA MONIQUE MD
--- NOTE | 2021-05-14 21:13 | EX.ED.DYSGE1 ---
HPI History of Present Illness Chief Complaint: Weakness Informant: patient and family Onset/Context/Timing Onset: Days Current Severity: Moderate Maximum Severity: Moderate Narrative Narrative: Patient presents via EMS after a fall at home. Family states she has had increasing weakness with nausea, vomiting, and diarrhea. She does seem more confused at times. Symptoms have really progressed over the last 2 days or so. She reportedly was treated with an antibiotic for UTI last week but daughter states she thinks the urine actually came back clear. No fever but has had some chills. Daughter was out of town the last 2 days but states when she got home tonight her mom was more confused. She was very weak when she attempted to help her get up to the bathroom. Patient turned to sit on the commode when she was still a good distance away from and fell onto the bathroom floor. She did not lose consciousness and she denies any injury from the fall. [facility] Medical History Arthritis Diabetes Hemorrhoids HTN (hypertension) Shoulder pain Thyroid disease Home Medications citalopram 30 mg PO DAILY 12/31/14 [History Last Taken 10/05/18] levothyroxine 100 mcg PO DAILY 12/31/14 [History Last Taken 10/05/18] aspirin 162 mg PO QHS 10/11/17 [History Last Taken 10/05/18] rosuvastatin 10 mg PO QHS 04/20/18 [History Last Taken 10/05/18] carbidopa-levodopa 1 ea PO QHS 10/21/19 [History Last Taken Unknown] carbidopa-levodopa 1 tab PO TIDAC 10/21/19 [History Last Taken Unknown] midodrine 2.5 mg PO TID 05/14/21 [History Last Taken Unknown] mirabegron [Myrbetriq] 25 mg PO BID 05/14/21 [History Last Taken Unknown] omeprazole 20 mg PO DAILY 05/14/21 [History Last Taken Unknown] oxybutynin chloride 5 mg PO QHS 05/14/21 [History Last Taken Unknown] Allergy/AdvReac Type Severity Reaction Status Date / Time diclofenac sodium Allergy kidneys Verified 05/14/21 21:00 [From [employer]] shut down misoprostol [From [employer]] Allergy kidneys Verified 05/14/21 21:00 shut down Family History Other Cancer Surgical History History of cholecystectomy Social History Smoking Status: Former smoker alcohol intake: never ROS ROS ED Constitutional Constitutional ED: Reports chills; Denies fever(s) Eyes Eyes: Denies change in vision ENT ENT ED: Denies sore throat Cardiovascular Cardiovascular: Denies chest pain Respiratory/Chest Respiratory/Chest: Denies cough or dyspnea Gastrointestinal Gastrointestinal: Reports diarrhea, nausea and vomiting; Denies abdominal pain Genitourinary Genitourinary ED: Denies dysuria Musculoskeletal Musculoskeletal: Denies back pain Integumentary Denies rash Neurologic Neurologic: Reports weakness; Denies headache(s) Psychiatric Psychiatric: Denies anxiety or depression Endocrine Endocrinology: Denies polydipsia or polyuria Allergic/Immunologic Allergic/Immunologic ED: Denies urticaria EXAM Physical Exam Const Vital Signs: 05/14/21 20:56 05/14/21 21:00 05/14/21 21:01 Temperature 98 F 98 F Temperature Source Oral Oral Pulse Rate 73 73 Respiratory Rate 18 18 Respiratory Effort Normal Non-Labored Respiratory Pattern Normal Blood Pressure 148/83 H 148/83 H Blood Pressure Mean 104 104 Pulse Ox 98 98 Oxygen Delivery Method Room Air Room Air 05/14/21 22:00 Temperature 98.1 F Temperature Source Oral Pulse Rate 68 Respiratory Rate 14 Respiratory Effort Respiratory Pattern Blood Pressure 149/117 H Blood Pressure Mean 127 Pulse Ox 98 Oxygen Delivery Method Room Air Positive well nourished and well developed General Appearance ED: well developed HEENT Reports normocephalic and head/scalp atraumatic Eyes PERRL and EOMs intact bilaterally Neck supple Chest Wall inspection of chest normal and palpation of chest normal Resp normal respiratory effort and clear to auscultation bilaterally Cardio regular rate and regular rhythm GI non-tender Auscultation: hypoactive bowel sounds Palpation: soft Extremity normal to inspection General Extremety ED: Negative for tenderness Neuro Neuro Narrative: No focal neurologic deficits at this time. Sensorium / Orientation: alert Psych mental status grossly normal Skin no rashes or lesions noted and no wounds MDM MDM MDM Narrative Medical decision making narrative: CT scan of the head, chest x-ray are ordered. Labs, urinalysis, Covid test are ordered. Patient is given IV fluids. Reglan is given for nausea. Lab Data Attestation: I reviewed the patient's lab results. Labs: Laboratory Results - last 24 hr 05/14/21 05/14/21 05/14/21 21:08 21:08 21:42 WBC 7.7 RBC 4.91 Hgb 14.1 Hct 42.7 MCV 87.0 MCH 28.7 MCHC 33.0 RDW Std Deviation 45.9 H RDW Coeff of [place]lin 14.4 Plt Count 322 MPV 11.8 Immature Gran % (Auto) 0.300 Neut % (Auto) 71.3 H Lymph % (Auto) 17.7 L [place] % (Auto) 10.5 H Eos % (Auto) 0.1 Baso % (Auto) 0.1 Absolute Neuts (auto) 5.5 Absolute Lymphs (auto) 1.37 Nucleated RBC % 0 Sodium 134 L Potassium 3.7 Chloride 103 Carbon Dioxide 16.0 L Anion Gap 15 BUN 27 H Creatinine 1.05 H Estim Creat Clear Calc 32.74 Est GFR (MDRD) Af Amer 65 Est GFR (MDRD) Non-Af 54 L BUN/Creatinine Ratio 25.7 H Glucose 159 H Lactic Acid 1.6 Calcium 9.5 Total Bilirubin 1.70 H Direct Bilirubin 0.30 AST 34 ALT < 6 L Alkaline Phosphatase 135 H Troponin I High Sens 10.1 Total Protein 7.2 Albumin 3.8 Globulin 3.4 Lipase 60 L Urine Color Urine Clarity Urine pH Ur Specific [place] Urine Protein Urine Glucose (UA) Urine Ketones Urine Occult Blood Urine Nitrite Urine Bilirubin Urine Urobilinogen Ur Leukocyte Esterase Urine RBC Urine WBC Ur Squamous Epith Cells Amorphous Sediment Urine Bacteria Urine Mucus 05/14/21 22:07 WBC RBC Hgb Hct MCV MCH MCHC RDW Std Deviation RDW Coeff of [place] Plt Count MPV Immature Gran % (Auto) Neut % (Auto) Lymph % (Auto) [place] % (Auto) Eos % (Auto) Baso % (Auto) Absolute Neuts (auto) Absolute Lymphs (auto) Nucleated RBC % Sodium Potassium Chloride Carbon Dioxide Anion Gap BUN Creatinine Estim Creat Clear Calc Est GFR (MDRD) Af Amer Est GFR (MDRD) Non-Af BUN/Creatinine Ratio Glucose Lactic Acid Calcium Total Bilirubin Direct Bilirubin AST ALT Alkaline Phosphatase Troponin I High Sens Total Protein Albumin Globulin Lipase Urine Color Yellow Urine Clarity Sl. Cloudy Urine pH 5.0 Ur Specific [place] 1.020 Urine Protein 100 H Urine Glucose (UA) Normal Urine Ketones 150 A* Urine Occult Blood 150 H Urine Nitrite Negative Urine Bilirubin 1 H Urine Urobilinogen 4 H Ur Leukocyte Esterase 500 H Urine RBC 25-50 SEEN Urine WBC 50-100 SEEN Ur Squamous Epith Cells 0-5 SEEN Amorphous Sediment 1+ URATE Urine Bacteria 0 SEEN Urine Mucus RARE Radiography Chest X-Ray - ED: 1 View, Read by ED Physician and Chronic Changes Diagnostic Testing: Radiology Impression Brain CT 05/14/21 21:11 IMPRESSION: No acute intracranial changes or findings. Negative for hemorrhage, hematoma or extra-axial fluid collection. Negative for demarcation of a new nonhemorrhagic infarct zone. Negative for mass density. Stable cortical atrophy and stable ventriculomegaly. Chronic small vessel ischemic changes. Carotid and vertebral artery calcifications. Small internal exostosis of the left frontal bone unchanged from prior exam. Electronically Signed: Radha Guzman MD at 21:50 EDT , Service support , Chest X-Ray 05/14/21 21:11 IMPRESSION: No acute cardiopulmonary findings or changes. Negative for new consolidation, focal atelectasis, pleural effusion or cardiomegaly. Stable atherosclerotic changes of the aorta. Electronically Signed: Radha Guzman MD at 21:51 EDT , Service support , EKG Initial EKG: Attestation: I personally reviewed and interpreted this EKG as follows: Interpretation: Sinus Rhythm (Sinus at 74 with no acute ischemia.) Treatment and Re-Evaluation Comments:: On repeat evaluation patient is resting comfortably. Daughter further explains that patient was seen in Dr. Garza's office on , May 11. She was given a dose of antibiotics at that time. A prescription was sent to [facility] but has not yet been picked up. Over the last 2 days patient has now had worsened symptoms at home including vomiting, confusion, fall. Lab work this evening is largely unremarkable. She has mild dehydration. Urinalysis does show 50-100 white cells. Culture will be sent as this was a cath specimen and the previous culture revealed mixed gram-positive organisms. A dose of Rocephin will be given. Due to her weakness and confusion I will speak with hospitalist regarding observation overnight for antibiotic treatment and evaluation by physical therapy. Discharge Plan Triage Chief Complaint: Weakness ED Provider: Ana Luisa Mon Dx/Rx/DC Orders Clinical Impression: Acute UTI, Confusion, Weakness Prescriptions: No Action levothyroxine 88 MCG tablet 100 mcg PO DAILY RF: 0 citalopram 20 MG tablet 30 mg PO DAILY RF: 0 aspirin 81 MG tablet,chewable 162 mg PO QHS RF: 0 rosuvastatin 20 MG tablet 10 mg PO QHS RF: 0 carbidopa-levodopa 1 EACH tablet extended release 1 ea PO QHS RF: 0 carbidopa-levodopa 1 TABLET tablet 1 tab PO TIDAC RF: 0 omeprazole 20 mg Capsule,Delayed Release(Dr/Ec) 20 mg PO DAILY RF: 0 midodrine 2.5 mg Tablet 2.5 mg PO TID RF: 0 oxybutynin chloride 5 mg Tablet 5 mg PO QHS RF: 0 Myrbetriq 25 mg Tablet Extended Release 24 Hr 25 mg PO BID RF: 0 Primary Care Provider: Beltran Garza Chi Referrals: Beltran Garza Chi, MD [Primary Care Provider] - Disposition Disposition: Acute Care Hospital [facility]
[2021-05-14 21:25] LABS: Absolute Lymphocyte Count 1.37 X10^3/uL (0.83-4.51); Absolute Neutrophil Count 5.5 X10^3/uL (2.0-7.7); Basophil# 0.01 X10^3/uL; Basophil% 0.1 % (0-1); Eosinophil# 0.01 X10^3/uL; Eosinophils% 0.1 % (0-5); Hematocrit 42.7 % (37-47); Hemoglobin 14.1 g/dL (12.0-15.0); Lymphocyte # 1.37 X10^3/ul (0.83-4.51); Lymphocyte % 17.7 % (19-41); Mean Corpuscular Hgb 28.7 pg (27.0-32.0); Mean Platelet Vol. 11.8 fl (6.2-12.0); Monocyte# 0.81 X10^3/uL; Monocyte% 10.5 % (0-10); NRBC Flagged by Analyzer 0 % (0-5); Neutrophil # 5.52 X10^3/uL (2.7-7.7); Neutrophil % 71.3 % (47-70); Platelet Count 322 K/mm3 (150-450); RBC Distribution Width CV 14.4 % (11.6-14.6); RBC Distribution Width SD 45.9 fl (35.1-43.9); Red Blood Count 4.91 M/mm3 (4.2-5.4); White Blood Count 7.7 K/mm3 (4.4-11.0)
[2021-05-14] MEDS: 0.9% Normal Saline 1,000 ML 150 ML IV (21:35)
[2021-05-14] MEDS: Metoclopramide 10 MG/2 ML Vial 5 MG IV (21:35)
[2021-05-14 21:58] LABS: AST(SGOT) 34 U/L (15-37); Alanine Aminotransfer ALT/SGPT < 6 U/L (13-56); Albumin, Serum 3.8 g/dL (3.2-5.0); Alkaline Phosphatase 135 U/L (45-117); Anion Gap 15 (5-15); BUN 27 mg/dL (7-18); BUN/Creat Ratio 25.7 RATIO (10-20); Calcium,Total 9.5 mg/dL (8.5-10.1); Chloride 103 mmol/L (98-107); Creatinine, Serum 1.05 mg/dL (0.55-1.02); EST Glomerular Filtration Rate 54 mL/min (>60); Est Glom Filt Rate - Afr Amer 65 mL/min (>60); Estimated Creatinine Clearance 32.74 ml/min; Globulin 3.4 g/dL (2.2-4.2); Glucose 159 mg/dL (74-106); Lipase 60 U/L (73-393); Potassium 3.7 mmol/L (3.5-5.1); Protein, Total 7.2 g/dL (6.4-8.2); Sodium Level 134 mmol/L (136-145); Troponin-I HS 10.1 pg/mL (3.0-53.7)
[2021-05-14 22:00] VITALS: BP 149/117; PULSE 68; RESP 14; TEMP 36.7; O2SAT 98
[2021-05-14 22:14] LABS: Bacteria 0 SEEN /hpf (None Seen)
[2021-05-14 22:17] LABS: Color, Urine Yellow (Yellow); Glucose, Dipstick Normal (Normal); Leukocyte Esterase-Dipstick 500 /ul (Negative); Nitrite-Dipstick Negative (Negative); Occult Blood-Urine 150 /ul (Negative); Protein-Dipstick 100 mg/dl (Negative); Urine Clarity Sl. Cloudy (Clear); Urine Urobilinogen 4 mg/dl (Normal)
[2021-05-14 22:25] LABS: Lactic Acid 1.6 mmol/L (0.4-1.9)
[2021-05-14 22:32] LABS: Urine Bilirubin Dipstick 1 mg/dL (Negative)
[2021-05-14 22:33] LABS: Ketone-Dipstick 150 mg/dl (Negative)
[2021-05-14 22:36] LABS: Amorphous Sediment 1+ URATE; Mucous, Urine RARE /hpf (<or=2+); Red Blood Cells-Urine 25-50 SEEN /hpf (0-5); Squamous Epithelial Cells - UA 0-5 SEEN /hpf (5-10); White Blood Cells 50-100 SEEN /hpf (0-5)
[2021-05-14 23:00] VITALS: BP 149/106; PULSE 78; RESP 18; TEMP 37.2; O2SAT 99
[2021-05-14] MEDS: Ceftriaxone 1 GM/50 ML BAG IV (23:07)
[2021-05-14 23:28] VITALS: BP 149/106; PULSE 75; RESP 16; TEMP 37.2; O2SAT 98
--- NOTE | 2021-05-14 23:35 | PCM.HP.STD ---
Documented by User: Reyna Cornell NP-C 05/14/21 23:56 HPI - General General Date of Admission: 05/14/21 Date of Service: 05/14/21 Chief Complaint: Weakness HPI Narrative VIPUL RODRÍGUEZ, is a 75 F who presents for weakness which led to a fall at home. Patient daughter reports that patient seems more confused but patient is alert and oriented at this time. Patient's daughter states the patient was given a dose of antibiotics at Dr. Garza's office on but subsequent prescription has yet to be picked up from pharmacy. Patient denies any injuries from fall and patient's daughter reports that patient did not hit her head just fell off the bedside commode. Patient daughter also reports that patient has been in and out of physical therapy at home for the past 3 months and feels that she does well while she is getting therapy but as soon as therapy is done patient regresses and becomes weak again. [facility] Medical History (Updated 05/14/21 @ 23:47 by Reyna Cornell NP-C) Arthritis Depression Diabetes mellitus, type 2 Hemorrhoids Hyperlipidemia Hypertension Hypothyroidism Home Medications citalopram 30 mg PO DAILY 12/31/14 [History Last Taken 10/05/18] levothyroxine 100 mcg PO DAILY 12/31/14 [History Last Taken 10/05/18] aspirin 162 mg PO QHS 10/11/17 [History Last Taken 10/05/18] rosuvastatin 10 mg PO QHS 04/20/18 [History Last Taken 10/05/18] carbidopa-levodopa 1 ea PO QHS 10/21/19 [History Last Taken Unknown] carbidopa-levodopa 1 tab PO TIDAC 10/21/19 [History Last Taken Unknown] midodrine 2.5 mg PO TID 05/14/21 [History Last Taken Unknown] mirabegron [Myrbetriq] 25 mg PO BID 05/14/21 [History Last Taken Unknown] omeprazole 20 mg PO DAILY 05/14/21 [History Last Taken Unknown] oxybutynin chloride 5 mg PO QHS 05/14/21 [History Last Taken Unknown] Allergy/AdvReac Type Severity Reaction Status Date / Time diclofenac sodium Allergy kidneys Verified 05/14/21 21:00 [From Arthrotec] shut down misoprostol [From Arthrotec] Allergy kidneys Verified 05/14/21 21:00 shut down Family History Other Cancer Surgical History History of cholecystectomy Social History (Updated 05/14/21 @ 23:42 by Reyna Cornell NP-C) household members: family Smoking Status: Former smoker alcohol intake: never substance use type: does not use ROS Constitutional Constitutional: Reports weakness; Denies anorexia, chills, fatigue or fever(s) Cardiovascular Cardiovascular: Denies chest pain, edema or palpitations Respiratory/Chest Respiratory/Chest: Denies cough, hemoptysis, shortness of breath at rest or shortness of breath with exertion Gastrointestinal Gastrointestinal: Denies abdominal pain, constipation, diarrhea, nausea or vomiting Genitourinary Genitourinary: Denies dysuria, hematuria or polyuria Musculoskeletal Musculoskeletal: Denies back pain, extremity pain or joint pain Integumentary Integumentary: Denies dry skin Neurologic Neurologic: Reports weakness; Denies abnormal gait, abnormal speech, confusion, dizziness or focal weakness Psychiatric Psychiatric: Denies anxiety or depression Endocrine Endocrinology: Denies change in body appearance Hematologic/Lymphatic Hematologic/Lymphatic: Denies easy bleeding or easy bruising Vital Signs Vital Signs Vital Signs: 05/14/21 20:56 05/14/21 21:00 05/14/21 21:01 Temperature 98 F 98 F Temperature Source Oral Oral Pulse Rate 73 73 Respiratory Rate 18 18 Respiratory Effort Normal Non-Labored Respiratory Pattern Normal Blood Pressure 148/83 H 148/83 H Blood Pressure Mean 104 104 Pulse Ox 98 98 Oxygen Delivery Method Room Air Room Air 05/14/21 22:00 05/14/21 23:00 05/14/21 23:28 Temperature 98.1 F 98.9 F 98.9 F Temperature Source Oral Oral Oral Pulse Rate 68 78 75 Respiratory Rate 14 18 16 Respiratory Effort Respiratory Pattern Blood Pressure 149/117 H 149/106 H 149/106 H Blood Pressure Mean 127 120 120 Pulse Ox 98 99 98 Oxygen Delivery Method Room Air Room Air Room Air Weight Weight: 138 lb 7.205 oz Body Mass Index (BMI) 27.0 Physical Exam Const alert and oriented x3 General Appearance: cooperative HEENT normocephalic and head/scalp atraumatic Eyes conjunctivae normal and no scleral icterus Neck supple and no JVD General: trachea midline Lymph Lymphatic: no lymphadenopathy noted Resp normal respiratory effort, normal air movement and clear to auscultation bilaterally Cardio regular rate, regular rhythm, S1 normal heart sound and S2 normal heart sound GI normal to inspection, nondistended, normoactive bowel sounds, soft to palpation and non-tender Extremity normal capillary refill and no clubbing, cyanosis or edema General Extremity: no tenderness to palpation of joints or extremities Skin General Skin Exam: no breakdown and turgor normal Lesions: no lesions Rashes: no rashes Neuro no focal motor deficits Speech: speech normal Motor Exam: general weakness Psych thought process normal, cooperative and affect normal Appearance: appropriate Results Lab / Micro Data Result Diagrams: 05/14/21 21:08 05/14/21 21:08 Labs: Laboratory Results - last 24 hr 05/14/21 05/14/21 05/14/21 21:08 21:08 21:42 WBC 7.7 RBC 4.91 Hgb 14.1 Hct 42.7 MCV 87.0 MCH 28.7 MCHC 33.0 RDW Std Deviation 45.9 H RDW Coeff of Collin 14.4 Plt Count 322 MPV 11.8 Immature Gran % (Auto) 0.300 Neut % (Auto) 71.3 H Lymph % (Auto) 17.7 L [place] % (Auto) 10.5 H Eos % (Auto) 0.1 Baso % (Auto) 0.1 Absolute Neuts (auto) 5.5 Absolute Lymphs (auto) 1.37 Nucleated RBC % 0 Sodium 134 L Potassium 3.7 Chloride 103 Carbon Dioxide 16.0 L Anion Gap 15 BUN 27 H Creatinine 1.05 H Estim Creat Clear Calc 32.74 Est GFR (MDRD) Af Amer 65 Est GFR (MDRD) Non-Af 54 L BUN/Creatinine Ratio 25.7 H Glucose 159 H Lactic Acid 1.6 Calcium 9.5 Total Bilirubin 1.70 H Direct Bilirubin 0.30 AST 34 ALT < 6 L Alkaline Phosphatase 135 H Troponin I High Sens 10.1 Total Protein 7.2 Albumin 3.8 Globulin 3.4 Lipase 60 L Urine Color Urine Clarity Urine pH Ur Specific [place] Urine Protein Urine Glucose (UA) Urine Ketones Urine Occult Blood Urine Nitrite Urine Bilirubin Urine Urobilinogen Ur Leukocyte Esterase Urine RBC Urine WBC Ur Squamous Epith Cells Amorphous Sediment Urine Bacteria Urine Mucus 05/14/21 22:07 WBC RBC Hgb Hct MCV MCH MCHC RDW Std Deviation RDW Coeff of Collin Plt Count MPV Immature Gran % (Auto) Neut % (Auto) Lymph % (Auto) [place] % (Auto) Eos % (Auto) Baso % (Auto) Absolute Neuts (auto) Absolute Lymphs (auto) Nucleated RBC % Sodium Potassium Chloride Carbon Dioxide Anion Gap BUN Creatinine Estim Creat Clear Calc Est GFR (MDRD) Af Amer Est GFR (MDRD) Non-Af BUN/Creatinine Ratio Glucose Lactic Acid Calcium Total Bilirubin Direct Bilirubin AST ALT Alkaline Phosphatase Troponin I High Sens Total Protein Albumin Globulin Lipase Urine Color Yellow Urine Clarity Sl. Cloudy Urine pH 5.0 Ur Specific [place] 1.020 Urine Protein 100 H Urine Glucose (UA) Normal Urine Ketones 150 A* Urine Occult Blood 150 H Urine Nitrite Negative Urine Bilirubin 1 H Urine Urobilinogen 4 H Ur Leukocyte Esterase 500 H Urine RBC 25-50 SEEN Urine WBC 50-100 SEEN Ur Squamous Epith Cells 0-5 SEEN Amorphous Sediment 1+ URATE Urine Bacteria 0 SEEN Urine Mucus RARE Micro: Microbiology 05/14/21 21:22 SARS-CoV-2 Antigen (Rapid) - Final Mucosa - Nose Radiology Impression Brain CT 05/14/21 21:11 IMPRESSION: No acute intracranial changes or findings. Negative for hemorrhage, hematoma or extra-axial fluid collection. Negative for demarcation of a new nonhemorrhagic infarct zone. Negative for mass density. Stable cortical atrophy and stable ventriculomegaly. Chronic small vessel ischemic changes. Carotid and vertebral artery calcifications. Small internal exostosis of the left frontal bone unchanged from prior exam. Electronically Signed: Radha Guzman MD at 21:50 EDT , Service support , Chest X-Ray 05/14/21 21:11 IMPRESSION: No acute cardiopulmonary findings or changes. Negative for new consolidation, focal atelectasis, pleural effusion or cardiomegaly. Stable atherosclerotic changes of the aorta. Electronically Signed: Radha Guzman MD at 21:51 EDT , Service support , Assessment & Plan Assessment/Plan (1) Acute UTI: (2) Weakness generalized: PLAN: 1. Acute UTI -Admit to medical surgical -Patient received first dose of Rocephin in ER will continue -UA complete, urine culture pending -Vital signs per protocol -CBC and BMP daily, trend white blood cell count -Regular diet ordered 2. Generalized weakness -PT and OT to eval and treat -Due to ongoing weakness discussed SNF placement with daughter and patient. They are agreeable pending PT and OT evaluation and recommendations 3. Hyperlipidemia -Will continue rosuvastatin 4. Hypothyroidism -Last TSH 05/12/2021, 0.64 -Continue levothyroxine 5. Hypotension -Chronic, patient on Midodrine. -Currently elevated, vital signs per protocol trend BP 6. Depression -Continue citalopram 7. Parkinson's disease -Continue carbidopa levodopa 8. Overactive bladder -Patient reports normal urinary function -Continue oxybutynin and Myrbetriq. DVT prophylaxis-Lovenox This patient was seen by TEDDY KuoC under the supervision of Dr. Wolf. Documented by User: Dr. Omar Wolf MD 05/15/21 00:01 HPI - General General Date of Admission: 05/14/21 [facility] Medical History (Updated 05/14/21 @ 23:47 by CARRIE Kuo) Arthritis Depression Diabetes mellitus, type 2 Hemorrhoids Hyperlipidemia Hypertension Hypothyroidism Home Medications citalopram 30 mg PO DAILY 12/31/14 [History Last Taken 10/05/18] levothyroxine 100 mcg PO DAILY 12/31/14 [History Last Taken 10/05/18] aspirin 162 mg PO QHS 10/11/17 [History Last Taken 10/05/18] rosuvastatin 10 mg PO QHS 04/20/18 [History Last Taken 10/05/18] carbidopa-levodopa 1 ea PO QHS 10/21/19 [History Last Taken Unknown] carbidopa-levodopa 1 tab PO TIDAC 10/21/19 [History Last Taken Unknown] midodrine 2.5 mg PO TID 05/14/21 [History Last Taken Unknown] mirabegron [Myrbetriq] 25 mg PO BID 05/14/21 [History Last Taken Unknown] omeprazole 20 mg PO DAILY 05/14/21 [History Last Taken Unknown] oxybutynin chloride 5 mg PO QHS 05/14/21 [History Last Taken Unknown] Allergy/AdvReac Type Severity Reaction Status Date / Time diclofenac sodium Allergy kidneys Verified 05/14/21 21:00 [From Arthrotec] shut down misoprostol [From Arthrotec] Allergy kidneys Verified 05/14/21 21:00 shut down Family History Other Cancer Surgical History History of cholecystectomy Social History (Updated 05/14/21 @ 23:42 by Reyna Cornell, SLOT SERVICE SPECIALIST-C) household members: family Smoking Status: Former smoker alcohol intake: never substance use type: does not use Results Lab / Micro Data Result Diagrams: 05/14/21 21:08 05/14/21 21:08 Charges/Coding Addendum Addendum: Hospitalist note: I am seeing this patient in conjunction with Reyna Cornell. I independently seen and examined the patient. History and physical, laboratory data and imaging studies reviewed and I concur with the above admission and treatment plan. Patient presented to the emergency room because of fall at home because she has been very weak. Patient complained of generalized weakness, associated with nausea and diarrhea. Patient's daughter mentioned that she has been more confused at times than usual. Reportedly, patient was started on antibiotics for UTI, received 1 dose of IV antibiotic at her PCPs office and she is supposed to start p.o. antibiotics tomorrow. In the emergency department, her vital signs were stable. Routine blood work was remarkable for BUN of 27, creatinine is 1.05, otherwise normal. CT scan brain showed no acute findings. Chest x-ray showed no acute infiltrate or consolidation. Urinalysis revealed cloudy urine, 500 leukocyte esterase, there was 50-100 RBCs and no bacteria seen. Patient is being admitted for acute cystitis, mild dehydration and increasing confusion. - Physical Exam General: Alert, Cooperative, No apparent distress. HEENT: Atraumatic, PERRLA, EOMI. Neck: Supple, No JVD, Negative Carotid Bruits, Trachea Midline, Thyroid Normal. Lungs: Clear to auscultation, Normal air movement, No rhonchi, No wheeze, No rales. Cardiovascular: Regular rate, Regular Rhythm, Normal S1, Normal S2, PMI Normal. Abdomen: Bowel Sounds Present, Soft, Non Tender, Non-Distended, No Hepato-splenomegaly. Extremities: No clubbing, No cyanosis, No edema Skin: No rashes, No breakdown Neurological: Cranial nerves are intact, neuro grossly intact Vital Signs are stable. Assessment and plan: #1 acute cystitis: Admit to MedSurg floor, urine culture, gentle IV fluids for hydration, Tylenol as needed, Zofran as needed, IV Rocephin, repeat CBC and BMP tomorrow morning. #2 fall/debility: PT OT evaluation and treatment. Patient may need placement to [facility]. #3 increasing confusion: In the setting of history of dementia, likely because of acute UTI. CT scan brain showed no acute findings. #4 mild dehydration: Plan for IV fluids, input output chart, repeat BMP tomorrow morning. #5 other chronic medical problems: Stable, continue current medications as above. This note was generated with [employer] dictation software. It may contain incorrect words, spelling, and punctuation that were not noted in checking the note before signing. Visit Charges Inpatient E&M: 48404 Init Hosp L2
[2021-05-14 23:55] VITALS: BMI 26.4
[2021-05-15] VITALS (8 sets, daily range): BP systolic 136–157; BP diastolic 52–82; PULSE 65–77; RESP 16–18; TEMP 36.1–37.4; O2SAT 93–99
[2021-05-15] MEDS: 0.9% Normal Saline 1,000 ML 75 ML IV ×2 (00:56→14:15)
[2021-05-15] MEDS: Levothyroxine 100 MCG Tablet PO (06:24)
[2021-05-15] MEDS: Carbidopa/Levodopa 25/100 Tablet PO ×3 (06:24→16:44)
[2021-05-15] MEDS: Midodrine HCl 5 MG Tablet 2.5 MG PO ×3 (06:24→21:24)
[2021-05-15 06:55] LABS: Bedside Glucose 113 mg/dL (70-110)
[2021-05-15 06:56] LABS: Absolute Neutrophil Count 5.5 X10^3/uL (2.0-7.7); Basophil# 0.02 X10^3/uL; Basophil% 0.2 % (0-1); Eosinophil# 0.06 X10^3/uL; Eosinophils% 0.7 % (0-5); Hematocrit 39.1 % (37-47); Lymphocyte % 20.9 % (19-41); Mean Corp Hgb Conc 33.2 g/dL (32-36); Mean Corpuscular Hgb 29.1 pg (27.0-32.0); Mean Corpuscular Volume 87.7 fL (81-99); Mean Platelet Vol. 11.5 fl (6.2-12.0); Monocyte# 0.85 X10^3/uL; Monocyte% 10.5 % (0-10); NRBC Flagged by Analyzer 0 % (0-5); Neutrophil # 5.47 X10^3/uL (2.7-7.7); Neutrophil % 67.5 % (47-70); Platelet Count 236 K/mm3 (150-450); RBC Distribution Width CV 14.4 % (11.6-14.6); RBC Distribution Width SD 46.5 fl (35.1-43.9); Red Blood Count 4.46 M/mm3 (4.2-5.4); White Blood Count 8.1 K/mm3 (4.4-11.0)
[2021-05-15 07:20] LABS: Anion Gap 12 (5-15); BUN 24 mg/dL (7-18); BUN/Creat Ratio 31.7 RATIO (10-20); Calcium,Total 8.9 mg/dL (8.5-10.1); Chloride 106 mmol/L (98-107); Creatinine, Serum 0.76 mg/dL (0.55-1.02); EST Glomerular Filtration Rate 79 mL/min (>60); Est Glom Filt Rate - Afr Amer 96 mL/min (>60); Estimated Creatinine Clearance 34.38 ml/min; Glucose 112 mg/dL (74-106); Potassium 3.2 mmol/L (3.5-5.1); Sodium Level 138 mmol/L (136-145)
[2021-05-15] MEDS: Citalopram 10 MG Tablet 30 MG PO (09:46)
[2021-05-15] MEDS: Pantoprazole Sodium 20 MG Tablet PO (09:47)
[2021-05-15] MEDS: Mirabegron 25 MG TAB.ER.24H PO ×2 (09:47→21:24)
[2021-05-15] MEDS: Ceftriaxone 1 GM/50 ML BAG IV (09:47)
[2021-05-15] MEDS: Enoxaparin 30 MG/0.3 ML Syringe SC (09:47)
[2021-05-15 11:31] LABS: Bedside Glucose 123 mg/dL (70-110)
--- NOTE | 2021-05-15 13:32 | PCM.PN.HOSP ---
Subjective Subjective Patient seen and examined. She had no complaints and says she felt well. However patient was very confused and was only alert and oriented to her self. Objective Data Objective Data Vital Signs: Vital Signs Temp Pulse Resp BP Pulse Ox 98.3 F 70 16 142/60 H 98 05/15/21 10:39 05/15/21 10:39 05/15/21 10:39 05/15/21 10:39 05/15/21 10:39 Oxygen Delivery Method Room Air Weight: 135 lb 5.821 oz Body Mass Index (BMI) 26.4 Intake & Output: Intake and Output for Last 24 Hours 05/13/21 05/14/21 05/15/21 23:59 23:59 23:59 Intake Total 50 / 50 1516.25 / 1516.25 Balance 50 / 50 1516.25 / 1516.25 Lab / Micro Data Result Diagrams: 05/15/21 06:40 05/15/21 06:40 Labs: Laboratory Results - last 24 hr 05/14/21 05/14/21 05/14/21 21:08 21:08 21:42 WBC 7.7 RBC 4.91 Hgb 14.1 Hct 42.7 MCV 87.0 MCH 28.7 MCHC 33.0 RDW Std Deviation 45.9 H RDW Coeff of Collin 14.4 Plt Count 322 MPV 11.8 Immature Gran % (Auto) 0.300 Neut % (Auto) 71.3 H Lymph % (Auto) 17.7 L [place] % (Auto) 10.5 H Eos % (Auto) 0.1 Baso % (Auto) 0.1 Absolute Neuts (auto) 5.5 Absolute Lymphs (auto) 1.37 Nucleated RBC % 0 Sodium 134 L Potassium 3.7 Chloride 103 Carbon Dioxide 16.0 L Anion Gap 15 BUN 27 H Creatinine 1.05 H Estim Creat Clear Calc 32.74 Est GFR (MDRD) Af Amer 65 Est GFR (MDRD) Non-Af 54 L BUN/Creatinine Ratio 25.7 H Glucose 159 H Lactic Acid 1.6 Calcium 9.5 Total Bilirubin 1.70 H Direct Bilirubin 0.30 AST 34 ALT < 6 L Alkaline Phosphatase 135 H Troponin I High Sens 10.1 Total Protein 7.2 Albumin 3.8 Globulin 3.4 Lipase 60 L Urine Color Urine Clarity Urine pH Ur Specific [place] Urine Protein Urine Glucose (UA) Urine Ketones Urine Occult Blood Urine Nitrite Urine Bilirubin Urine Urobilinogen Ur Leukocyte Esterase Urine RBC Urine WBC Ur Squamous Epith Cells Amorphous Sediment Urine Bacteria Urine Mucus POC Glucose 05/14/21 05/15/21 05/15/21 22:07 06:40 06:40 WBC 8.1 RBC 4.46 Hgb 13.0 Hct 39.1 MCV 87.7 MCH 29.1 MCHC 33.2 RDW Std Deviation 46.5 H RDW Coeff of Collin 14.4 Plt Count 236 MPV 11.5 Immature Gran % (Auto) 0.200 Neut % (Auto) 67.5 Lymph % (Auto) 20.9 [place] % (Auto) 10.5 H Eos % (Auto) 0.7 Baso % (Auto) 0.2 Absolute Neuts (auto) 5.5 Absolute Lymphs (auto) 1.70 Nucleated RBC % 0 Sodium 138 Potassium 3.2 L Chloride 106 Carbon Dioxide 20.0 L Anion Gap 12 BUN 24 H Creatinine 0.76 Estim Creat Clear Calc 34.38 Est GFR (MDRD) Af Amer 96 Est GFR (MDRD) Non-Af 79 BUN/Creatinine Ratio 31.7 H Glucose 112 H Lactic Acid Calcium 8.9 Total Bilirubin Direct Bilirubin AST ALT Alkaline Phosphatase Troponin I High Sens Total Protein Albumin Globulin Lipase Urine Color Yellow Urine Clarity Sl. Cloudy Urine pH 5.0 Ur Specific [place] 1.020 Urine Protein 100 H Urine Glucose (UA) Normal Urine Ketones 150 A* Urine Occult Blood 150 H Urine Nitrite Negative Urine Bilirubin 1 H Urine Urobilinogen 4 H Ur Leukocyte Esterase 500 H Urine RBC 25-50 SEEN Urine WBC 50-100 SEEN Ur Squamous Epith Cells 0-5 SEEN Amorphous Sediment 1+ URATE Urine Bacteria 0 SEEN Urine Mucus RARE POC Glucose 05/15/21 05/15/21 06:49 11:23 WBC RBC Hgb Hct MCV MCH MCHC RDW Std Deviation RDW Coeff of Collin Plt Count MPV Immature Gran % (Auto) Neut % (Auto) Lymph % (Auto) [place] % (Auto) Eos % (Auto) Baso % (Auto) Absolute Neuts (auto) Absolute Lymphs (auto) Nucleated RBC % Sodium Potassium Chloride Carbon Dioxide Anion Gap BUN Creatinine Estim Creat Clear Calc Est GFR (MDRD) Af Amer Est GFR (MDRD) Non-Af BUN/Creatinine Ratio Glucose Lactic Acid Calcium Total Bilirubin Direct Bilirubin AST ALT Alkaline Phosphatase Troponin I High Sens Total Protein Albumin Globulin Lipase Urine Color Urine Clarity Urine pH Ur Specific [place] Urine Protein Urine Glucose (UA) Urine Ketones Urine Occult Blood Urine Nitrite Urine Bilirubin Urine Urobilinogen Ur Leukocyte Esterase Urine RBC Urine WBC Ur Squamous Epith Cells Amorphous Sediment Urine Bacteria Urine Mucus POC Glucose 113 H 123 H Micro: Microbiology 05/14/21 21:22 Mucosa - Nose SARS-CoV-2 Antigen (Rapid) - Final Radiography Diagnostic Testing: Radiology Impression Brain CT 05/14/21 21:11 IMPRESSION: No acute intracranial changes or findings. Negative for hemorrhage, hematoma or extra-axial fluid collection. Negative for demarcation of a new nonhemorrhagic infarct zone. Negative for mass density. Stable cortical atrophy and stable ventriculomegaly. Chronic small vessel ischemic changes. Carotid and vertebral artery calcifications. Small internal exostosis of the left frontal bone unchanged from prior exam. Electronically Signed: Radha Guzman MD at 21:50 EDT , Service support , Chest X-Ray 05/14/21 21:11 IMPRESSION: No acute cardiopulmonary findings or changes. Negative for new consolidation, focal atelectasis, pleural effusion or cardiomegaly. Stable atherosclerotic changes of the aorta. Electronically Signed: Radha Guzman MD at 21:51 EDT , Service support , Physical Exam Const alert and no apparent distress Orientation / Consciousness: confused Exam Limitations: no limitations HEENT head/scalp atraumatic and moist oral mucous membranes Head and Scalp: normocephalic Eyes PERRL, EOMs intact bilaterally and conjunctivae normal Neck no lymphadenopathy Resp normal respiratory effort, no retractions, no use of accessory muscles and clear to auscultation bilaterally Cardio regular rate, regular rhythm, S1 normal heart sound, S2 normal heart sound and no murmurs GI normal to inspection, nondistended, normoactive bowel sounds, soft to palpation, non-tender and non-distended Extremity normal to inspection, full ROM and no clubbing, cyanosis or edema Peripheral Pulses: Yes pulses 2+ throughout Skin no rashes or lesions noted Neuro moves all extremities Neuro Narrative: confused Sensorium / Orientation: awake and alert Psych affect normal Assessment & Plan Assessment/Plan (1) Acute UTI: (2) Confusion: (3) Weakness generalized: PLAN: #Acute metabolic encephalopathy due to UTI patient remains confused, but is otherwise stable on iV ceftriaxone urine and blood cultures pending #UTi: as above #Debility due to UTI PT/OT on board patient lives with her daughter. Will benefit from placement. #Hyperlipidemia on statin #Hypothyroidism: on synthroid #Depression; on citalopram #Chronic hypotension: on midodrine. #Parkinson's disease: On levodopa carbidopa DVT prophylaxis: lovenox Charges/Coding Visit Charges Inpatient E&M: 11888 Subs Hosp L2
[2021-05-15] MEDS: Nystatin Powder 15gm Bottle 1 APPLIC TOPICAL ×2 (14:16→21:19)
--- NOTE | 2021-05-15 14:59 | CASEMGMT ---
RAFAEL ATKINSON Assessment: Face to Face with pt for initial transition planning/care coordination assessment. RAFAEL ATKINSON introduced self and role at [facility], pt unable to verbalize understanding or consent to assessment. TC to pt dtr and DPOA Karolina Kali. Completed assessment via tc. Care providers, pharmacy, and demographics verified/updated. Admitting Dx: acute cystitis, encephalopathy, debility PCP: Greg Specialists: Pt dtr denies pt having any specialists. [facility]erred [facility]: [facility] Insurance: Anthem Medicare Senior Advantage Prescription Benefit: yes LW/HPOA: Pt has a LW/DPOA on file at [facility]. Pt has passed. First alternate agent Karolina Bass, dtr. LNOK: Karolina Bass, dtr Living Arrangements: Pt lives with dtr Karolina and her and two sons in a two story farmhouse. Pt lives on the main level. There is one step to enter on the back patio and 3 steps if entering through the garage. Pt needs assistance from pt dtr with dressing and is dependent with bathing due to safety. Transportation: Pt son in law and dtr transport pt to [facility]. Pt dtr denies concerns with transportation. DME/HHC/SNF: Pt has a walker, grab bars and shower chair in the home. Pt has had [facility] HHS in the past and no history of SNF stays. Pt dtr states they would like pt to have s/t strengthening at a SNF. Patient dtr provided a list of HHC providers including quality and resource use data and consistent with the patient?s preferred geographic region, medical needs, and insurance network verbally. The preferred provider is 1. [facility] 2. [facility] 3. [facility]. CM to follow. Advised pt to ask CM if any further question/concerns/needs arise, voices understanding. Notified Remi CAO of pt dtr request. Pt Dtr Goal: [facility] T[facility] s/t Plan: [facility] s/t
--- NOTE | 2021-05-15 15:49 | CASEMGMT ---
Social Work Note SW received referral for SNF placement. Pt's daughter Karolina states first choice for SNF is [facility] and second choice is [facility]. NASH placed a call to Mayra with TCU and provided referral. Mayra states TCU is able to accept pt if pt will be discharged with oral antibiotics. NASH asked physician, pt will be discharged on Oral. Mayra states TCU is able to accept pt, will submit for pre-cert. NASH placed a call to Karolina ([phone]) ext: [phone]) and updated on TCU pending pre-cert. Plan: TCU pending pre-cert Nohemi Yuen PERFORMANCE TESTER, WASTE RECLAIMER
[2021-05-15] MEDS: Insulin Lispro 100 UNIT/ML INSULN.PEN SC (16:42)
[2021-05-15 16:50] LABS: Bedside Glucose 151 mg/dL (70-110)
[2021-05-15] MEDS: Potassium Chloride Oral Tablet 20 MEQ 40 MEQ PO (20:24)
[2021-05-15] MEDS: Aspirin 81 MG TAB.CHEW 162 MG PO (21:24)
[2021-05-15] MEDS: CARBIDOPA/LEVODOPA CR 50/200 Tablet PO (21:24)
[2021-05-15] MEDS: Atorvastatin Calcium 20 MG Tablet PO (21:24)
[2021-05-15] MEDS: Oxybutynin 5 MG Tablet PO (21:24)
[2021-05-15 21:40] LABS: Bedside Glucose 134 mg/dL (70-110)
[2021-05-16 03:51] VITALS: BP 168/67; PULSE 56; RESP 16; TEMP 36.4; O2SAT 99
[2021-05-16 05:51] VITALS: BP 154/76; PULSE 58
[2021-05-16] MEDS: Nystatin Powder 15gm Bottle 1 APPLIC TOPICAL ×2 (05:53→12:46)
[2021-05-16] MEDS: Midodrine HCl 5 MG Tablet 2.5 MG PO ×2 (05:57→14:35)
[2021-05-16] MEDS: Levothyroxine 100 MCG Tablet PO (05:57)
[2021-05-16] MEDS: Carbidopa/Levodopa 25/100 Tablet PO ×2 (06:30→12:45)
[2021-05-16 06:40] LABS: Bedside Glucose 96 mg/dL (70-110)
[2021-05-16 06:44] LABS: Absolute Lymphocyte Count 1.56 X10^3/uL (0.83-4.51); Absolute Neutrophil Count 3.9 X10^3/uL (2.0-7.7); Basophil# 0.03 X10^3/uL; Basophil% 0.5 % (0-1); Eosinophil# 0.41 X10^3/uL; Eosinophils% 6.3 % (0-5); Hematocrit 41.4 % (37-47); Hemoglobin 13.2 g/dL (12.0-15.0); Lymphocyte # 1.56 X10^3/ul (0.83-4.51); Lymphocyte % 24.1 % (19-41); Mean Corp Hgb Conc 31.9 g/dL (32-36); Mean Corpuscular Hgb 28.9 pg (27.0-32.0); Mean Corpuscular Volume 90.6 fL (81-99); Mean Platelet Vol. 11.2 fl (6.2-12.0); Monocyte% 9.3 % (0-10); NRBC Flagged by Analyzer 0 % (0-5); Neutrophil # 3.87 X10^3/uL (2.7-7.7); Neutrophil % 59.6 % (47-70); Platelet Count 193 K/mm3 (150-450); RBC Distribution Width CV 14.6 % (11.6-14.6); RBC Distribution Width SD 48.5 fl (35.1-43.9); Red Blood Count 4.57 M/mm3 (4.2-5.4); White Blood Count 6.5 K/mm3 (4.4-11.0)
[2021-05-16 07:43] LABS: Anion Gap 8 (5-15); BUN 18 mg/dL (7-18); BUN/Creat Ratio 27.1 RATIO (10-20); Calcium,Total 8.8 mg/dL (8.5-10.1); Chloride 112 mmol/L (98-107); Creatinine, Serum 0.66 mg/dL (0.55-1.02); EST Glomerular Filtration Rate 92 mL/min (>60); Est Glom Filt Rate - Afr Amer 111 mL/min (>60); Estimated Creatinine Clearance 34.38 ml/min; Glucose 89 mg/dL (74-106); Potassium 4.1 mmol/L (3.5-5.1); Sodium Level 139 mmol/L (136-145)
[2021-05-16 09:30] VITALS: O2SAT 99
[2021-05-16] MEDS: Ceftriaxone 1 GM/50 ML BAG IV (09:33)
[2021-05-16] MEDS: Mirabegron 25 MG TAB.ER.24H PO (09:34)
[2021-05-16] MEDS: Citalopram 10 MG Tablet 30 MG PO (09:34)
[2021-05-16] MEDS: Pantoprazole Sodium 20 MG Tablet PO (09:34)
[2021-05-16] MEDS: Enoxaparin 30 MG/0.3 ML Syringe SC (09:34)
[2021-05-16] MEDS: 0.9% Saline Lock 10 ML Syringe IV (09:35)
[2021-05-16 09:50] VITALS: BP 135/57; PULSE 64; RESP 17; TEMP 36.9; O2SAT 99
--- NOTE | 2021-05-16 11:03 | CASEMGMT ---
Addendum entered by Nohemi Yuen 05/16/21 14:10: SW in to speak with pt. Pt is alert and orientated x1. NASH did update pt that she will going to [facility] today. Addendum entered by Nohemi Yuen 05/16/21 14:05: SW received call from Mayra with TCU stating pre-cert has been obtained and pt is able to discharge today. Physician updated. NASH placed a call to pt's daughter Karolina and updated her on approval to TCU, discharge to TCU today, and COVID restrictions/visitation on TCU. Karolina states understanding. Plan: TCU today Original Note: Social Work Note NASH spoke with Mayra with TCU and updated her that pt is medically ready for discharge once pre-cert is obtained. Plan: TCU pending pre-cert Nohemi MARTINEZ, PRODUCTION COOK
--- NOTE | 2021-05-16 11:43 | PN.HOSP_ITS ---
Subjective Subjective Patient seen and examined. She felt well and had no complaints. Review of systems otherwise negative. She has remained hemodynamically stable. Objective Data Objective Data Vital Signs: Vital Signs Temp Pulse Resp BP Pulse Ox 98.5 F 64 17 135/57 H 99 05/16/21 09:50 05/16/21 09:50 05/16/21 09:50 05/16/21 09:50 05/16/21 09:50 Oxygen Delivery Method Room Air Weight: 135 lb 5.821 oz Body Mass Index (BMI) 26.4 Intake & Output: Intake and Output for Last 24 Hours 05/14/21 05/15/21 05/16/21 23:59 23:59 23:59 Intake Total 50 2373.75 / 2373.75 1100 / 1100 Balance 50 50 2373.75 / 2373.75 1100 / 1100 Lab / Micro Data Result Diagrams: 05/16/21 06:25 05/16/21 06:25 Labs: Laboratory Results - last 24 hr 05/15/21 05/15/21 05/16/21 16:39 21:13 06:25 WBC 6.5 RBC 4.57 Hgb 13.2 Hct 41.4 MCV 90.6 MCH 28.9 MCHC 31.9 L RDW Std Deviation 48.5 H RDW Coeff of Collin 14.6 Plt Count 193 MPV 11.2 Immature Gran % (Auto) 0.200 Neut % (Auto) 59.6 Lymph % (Auto) 24.1 [place] % (Auto) 9.3 Eos % (Auto) 6.3 H Baso % (Auto) 0.5 Absolute Neuts (auto) 3.9 Absolute Lymphs (auto) 1.56 Nucleated RBC % 0 Sodium Potassium Chloride Carbon Dioxide Anion Gap BUN Creatinine Estim Creat Clear Calc Est GFR (MDRD) Af Amer Est GFR (MDRD) Non-Af BUN/Creatinine Ratio Glucose Calcium POC Glucose 151 H 134 H 05/16/21 05/16/21 06:25 06:30 WBC RBC Hgb Hct MCV MCH MCHC RDW Std Deviation RDW Coeff of Collin Plt Count MPV Immature Gran % (Auto) Neut % (Auto) Lymph % (Auto) [place] % (Auto) Eos % (Auto) Baso % (Auto) Absolute Neuts (auto) Absolute Lymphs (auto) Nucleated RBC % Sodium 139 Potassium 4.1 Chloride 112 H Carbon Dioxide 19.0 L Anion Gap 8 BUN 18 Creatinine 0.66 Estim Creat Clear Calc 34.38 Est GFR (MDRD) Af Amer 111 Est GFR (MDRD) Non-Af 92 BUN/Creatinine Ratio 27.1 H Glucose 89 Calcium 8.8 POC Glucose 96 Micro: Microbiology 05/14/21 22:07 Urine Catheter - Catheter Urine Culture - Preliminary Gram positive germania Beta hemolytic organism 05/14/21 21:22 Mucosa - Nose SARS-CoV-2 Antigen (Rapid) - Final Physical Exam Const alert and no apparent distress General Appearance: cooperative Orientation / Consciousness: confused Exam Limitations: no limitations HEENT normocephalic, head/scalp atraumatic and moist oral mucous membranes Head and Scalp: normocephalic Eyes PERRL, EOMs intact bilaterally, conjunctivae normal and no scleral icterus Neck no lymphadenopathy, supple and no JVD General: trachea midline Lymph Lymphatic: no lymphadenopathy noted Resp normal respiratory effort, normal air movement, no retractions, no use of accessory muscles and clear to auscultation bilaterally Cardio regular rate, regular rhythm, S1 normal heart sound, S2 normal heart sound and no murmurs GI normal to inspection, nondistended, normoactive bowel sounds, soft to palpation, non-tender and non-distended Extremity normal to inspection, full ROM, normal capillary refill and no clubbing, cyanosis or edema General Extremity: no tenderness to palpation of joints or extremities Skin no rashes or lesions noted General Skin Exam: no breakdown and turgor normal Lesions: no lesions Rashes: no rashes Neuro moves all extremities and no focal motor deficits Neuro Narrative: confused Sensorium / Orientation: awake and alert Speech: speech normal Motor Exam: general weakness Psych thought process normal, cooperative and affect normal Appearance: appropriate Assessment & Plan Assessment/Plan (1) Acute UTI: (2) Confusion: (3) Weakness generalized: PLAN: #Acute metabolic encephalopathy due to UTI * patient remains confused, but is otherwise stable * on iV ceftriaxone * urine growing gram positive germania and a beta hemolytic organism; speciation pending * continue IV ceftriaxone * #UTi: as above #Debility due to UTI * PT/OT on board * patient and family amenable to placement' * #Hyperlipidemia * on statin * #Hypothyroidism: on synthroid #Depression; on citalopram #Chronic hypotension: on midodrine. #Parkinson's disease: On levodopa carbidopa DVT prophylaxis: lovenox Disposition: awaiting placement in SNF- TCU pending precert. Charges/Coding Visit Charges Inpatient E&M: 76022 Subs Hosp L2
[2021-05-16] MEDS: Insulin Lispro 100 UNIT/ML INSULN.PEN SC (12:45)
[2021-05-16 13:00] LABS: Bedside Glucose 167 mg/dL (70-110)
--- NOTE | 2021-05-16 13:16 | PCM.DC.SUM ---
Providers Date of Admission: 05/14/21 Primary Care Physician: Dr. Beltran Garza MD Reason For Visit: ACUTE CYSTITIS, ENCEPHALOPATHY, DEBILITY Diagnosis Discharge Diagnosis (1) Acute UTI: Status: Acute Code(s): N39.0 - Urinary tract infection, site not specified (2) Confusion: Status: Acute Code(s): R41.0 - Disorientation, unspecified (3) Weakness generalized: Status: Acute Code(s): R53.1 - Weakness Medications at Discharge Home Medications citalopram 30 mg PO DAILY 12/31/14 levothyroxine 100 mcg PO DAILY 12/31/14 aspirin 162 mg PO QHS 10/11/17 rosuvastatin 10 mg PO QHS 04/20/18 carbidopa-levodopa 1 ea PO QHS 10/21/19 carbidopa-levodopa 1 tab PO TIDAC 10/21/19 Myrbetriq 25 mg PO BID 05/14/21 midodrine 2.5 mg PO TID 05/14/21 omeprazole 20 mg PO DAILY 05/14/21 oxybutynin chloride 5 mg PO QHS 05/14/21 cefdinir 300 mg PO BID #10 cap 05/16/21 Hospital Course Operations None Procedures None Summary of Care Provided Minutes Spent on Discharge: 35 Hospital Course: Patient is a 75-year-old female who was admitted from home on 05/14/2021 with complaint of weakness and a resultant fall. She was also noted to be more confused. He had been given a dose of antibiotics at her PCPs office 3 days prior to admission but had not yet picked up the subsequent prescription the pharmacy. She had been feeling weak at home and had been going for outpatient physical therapy. Labs done on admission showed evidence of UTI so she was admitted to be managed for acute metabolic encephalopathy due to UTI. She was hydrated with IV fluids and started on IV ceftriaxone. Urine culture grew gram-positive rods and a beta-hemolytic organism with speciation pending at time of discharge. Patient and her family were amenable to placement and patient was accepted at the transitional care unit. She remained stable and was discharged to the TCU on 05/16/2021. She was discharged with a prescription for p.o. Omnicef 300 mg twice daily for 5 days. She is to follow-up with her primary care doctor in 1 to 2 weeks. Patient was seen and examined prior to discharge. For physical examination documentation, please refer to hospitalist progress notes dated 05/16/2021. Physical Exam Const alert and no apparent distress General Appearance: cooperative, comfortable and well kempt Orientation / Consciousness: confused Exam Limitations: no limitations HEENT normocephalic, head/scalp atraumatic and moist oral mucous membranes Eyes PERRL, EOMs intact bilaterally, conjunctivae normal and no scleral icterus Neck no lymphadenopathy, supple and no JVD General: trachea midline Lymph Lymphatic: no lymphadenopathy noted Resp normal respiratory effort, normal air movement, no retractions, no use of accessory muscles and clear to auscultation bilaterally Cardio regular rate, regular rhythm, S1 normal heart sound, S2 normal heart sound and no murmurs GI normal to inspection, nondistended, normoactive bowel sounds, soft to palpation, non-tender and non-distended Extremity normal to inspection, full ROM, normal capillary refill and no clubbing, cyanosis or edema General Extremity: no tenderness to palpation of joints or extremities Skin no rashes or lesions noted General Skin Exam: no breakdown and turgor normal Lesions: no lesions Rashes: no rashes Neuro moves all extremities and no focal motor deficits Neuro Narrative: confused Sensorium / Orientation: awake and alert Speech: speech normal Motor Exam: general weakness Psych thought process normal, cooperative and affect normal Appearance: appropriate Weight / BMI Weight Weight: 135 lb 5.821 oz Body Mass Index (BMI) 26.4 ABG / Lab / Microbiology Data Result Diagrams: 05/16/21 06:25 05/16/21 06:25 Laboratory: Laboratory Results - last 24 hr 05/15/21 05/15/21 05/16/21 16:39 21:13 06:25 WBC 6.5 RBC 4.57 Hgb 13.2 Hct 41.4 MCV 90.6 MCH 28.9 MCHC 31.9 L RDW Std Deviation 48.5 H RDW Coeff of Collin 14.6 Plt Count 193 MPV 11.2 Immature Gran % (Auto) 0.200 Neut % (Auto) 59.6 Lymph % (Auto) 24.1 [place] % (Auto) 9.3 Eos % (Auto) 6.3 H Baso % (Auto) 0.5 Absolute Neuts (auto) 3.9 Absolute Lymphs (auto) 1.56 Nucleated RBC % 0 Sodium Potassium Chloride Carbon Dioxide Anion Gap BUN Creatinine Estim Creat Clear Calc Est GFR (MDRD) Af Amer Est GFR (MDRD) Non-Af BUN/Creatinine Ratio Glucose Calcium POC Glucose 151 H 134 H 05/16/21 05/16/21 05/16/21 06:25 06:30 12:43 WBC RBC Hgb Hct MCV MCH MCHC RDW Std Deviation RDW Coeff of Collin Plt Count MPV Immature Gran % (Auto) Neut % (Auto) Lymph % (Auto) [place] % (Auto) Eos % (Auto) Baso % (Auto) Absolute Neuts (auto) Absolute Lymphs (auto) Nucleated RBC % Sodium 139 Potassium 4.1 Chloride 112 H Carbon Dioxide 19.0 L Anion Gap 8 BUN 18 Creatinine 0.66 Estim Creat Clear Calc 34.38 Est GFR (MDRD) Af Amer 111 Est GFR (MDRD) Non-Af 92 BUN/Creatinine Ratio 27.1 H Glucose 89 Calcium 8.8 POC Glucose 96 167 H Microbiology: Microbiology 05/14/21 22:07 Urine Culture - Preliminary Urine Catheter - Catheter Gram positive germania Beta hemolytic organism Microbiology 05/14/21 22:07 Urine Catheter - Catheter Urine Culture - Preliminary Gram positive germania Beta hemolytic organism 05/14/21 21:22 Mucosa - Nose SARS-CoV-2 Antigen (Rapid) - Final D/C Instructions Discharge Diet: 2000 mg Sodium Diet Discharge Activity: Return to Normal Activity Weight Bearing Status: Weight bearing as tolerated Call your doctor if you observe: Fever of 101 or Higher, Shortness of breath and Swelling in the ankles Meaningful Use Info Meaningful Use Diagnoses (Choose all that apply): None applicable Discharge Plan Admission Admit Date/Time: 05/14/21 23:15 Primary Reason for Your Visit: acute metabolic encephalopathy, UTI Attending Provider: Barbara Multani Primary Care Provider: Beltran Garza Chi Discharge Orders/Prescriptions Prescriptions: New cefdinir 300 mg capsule 300 mg PO BID Qty: 10 RF: 0 Continued levothyroxine 88 MCG tablet 100 mcg PO DAILY RF: 0 citalopram 20 MG tablet 30 mg PO DAILY RF: 0 aspirin 81 MG tablet,chewable 162 mg PO QHS RF: 0 rosuvastatin 20 MG tablet 10 mg PO QHS RF: 0 carbidopa-levodopa 1 EACH tablet extended release 1 ea PO QHS RF: 0 carbidopa-levodopa 1 TABLET tablet 1 tab PO TIDAC RF: 0 omeprazole 20 mg Capsule,Delayed Release(Dr/Ec) 20 mg PO DAILY RF: 0 midodrine 2.5 mg Tablet 2.5 mg PO TID RF: 0 oxybutynin chloride 5 mg Tablet 5 mg PO QHS RF: 0 Myrbetriq 25 mg Tablet Extended Release 24 Hr 25 mg PO BID RF: 0 Referrals / Follow Up: Beltran Garza Chi, MD [Primary Care Provider] - In 1 Week Disposition Disposition (needs filled in before D/C Order can be placed[facility] Charges/Coding Visit Charges Inpatient E&M: 90565 Disch Hosp
--- NOTE | 2021-05-16 13:28 | PCM.TXEXTCAR ---
Diet 05/14/21 23:57 Diet: Regular - General Food consistency:: Regular Liquid Consistency:: Regular/Thin Problem/Diagnosis (1) Acute UTI: Status: Acute (2) Confusion: Status: Acute (3) Weakness generalized: Status: Acute Allergies/Procedures Done in Hospital Allergies diclofenac sodium [From [employer]] Allergy (Verified 05/14/21 21:00) kidneys shut down KIDNEYS SHUT DOWN PT STATES misoprostol [From [employer]] Allergy (Verified 05/14/21 21:00) kidneys shut down KIDNEYS SHUT DOWN PT STATES Type of Care/Length of Stay Estimated LOS: Convalescent Care Less Than 30 days Type of Care Needed: Skilled Rehab Potential: Fair Prognosis: Fair Additional Orders/Day of Discharge Day of Discharge: 05/16/21 Discharge Plan Admission Admit Date/Time: 05/14/21 23:15 Primary Reason for Your Visit: acute metabolic encephalopathy, UTI Attending Provider: Barbara Multani Primary Care Provider: Beltran Garza Chi Discharge Orders/Prescriptions Prescriptions: New cefdinir 300 mg capsule 300 mg PO BID Qty: 10 RF: 0 Continued levothyroxine 88 MCG tablet 100 mcg PO DAILY RF: 0 citalopram 20 MG tablet 30 mg PO DAILY RF: 0 aspirin 81 MG tablet,chewable 162 mg PO QHS RF: 0 rosuvastatin 20 MG tablet 10 mg PO QHS RF: 0 carbidopa-levodopa 1 EACH tablet extended release 1 ea PO QHS RF: 0 carbidopa-levodopa 1 TABLET tablet 1 tab PO TIDAC RF: 0 omeprazole 20 mg Capsule,Delayed Release(Dr/Ec) 20 mg PO DAILY RF: 0 midodrine 2.5 mg Tablet 2.5 mg PO TID RF: 0 oxybutynin chloride 5 mg Tablet 5 mg PO QHS RF: 0 Myrbetriq 25 mg Tablet Extended Release 24 Hr 25 mg PO BID RF: 0 Referrals / Follow Up: Beltran Garza Chi, MD [Primary Care Provider] - In 1 Week Disposition Disposition (needs filled in before D/C Order can be placed): [facility]
[2021-05-16 14:56] VITALS: BP 158/71; PULSE 64; RESP 17; TEMP 36.8; O2SAT 99
--- NOTE | 2021-05-16 15:07 | NURSING ---
report called to [facility]
== END 2021-05-16 15:20 | DRG 689 ==
LOC: ED 23:06 → MS3 05-15 01:34
PROVIDERS: Admitting Provider Hospitalist; Emergency Provider Emergency Medicine; PCP Family Medicine Geriatric Medicine; Visit Provider Student in an Organized Health Care Education/Training Program
DX: N30.00 Acute cystitis without hematuria (principal); G20 Parkinson's disease; F03.90 Unspecified dementia, unspecified severity, without behavioral disturbance, psychotic disturbance, mood disturbance, and anxiety; E11.9 Type 2 diabetes mellitus without complications; G93.41 Metabolic encephalopathy; E86.0 Dehydration; E78.5 Hyperlipidemia, unspecified; E03.9 Hypothyroidism, unspecified; F32.9 Major depressive disorder, single episode, unspecified; I95.89 Other hypotension; I10 Essential (primary) hypertension; Z87.891 Personal history of nicotine dependence; W19.XXXA Unspecified fall, initial encounter; Y92.009 Unspecified place in unspecified non-institutional (private) residence as the place of occurrence of the external cause; Z90.49 Acquired absence of other specified parts of digestive tract; Z79.899 Other long term (current) drug therapy
CPT/HCPCS: 36415; 70450; 71045; 80048; 80053; 80076; 81001; 82306; 82962; 83605; 83690; 84443; 84484; 85025; 87040; 87077; 87086; 87088; 87186; 87426; 93005; 96361; 96365; 96366; 96372; 96375; 97110; 97162; 97166; 97530; 97535; 99218; 99251; 99285; J7030; J7050; A4216; G0378; G0463

== ENCOUNTER 2021-05-16 15:29 | Inpatient (IN) | payer MEDICARE, SELFPAY ==
[2021-05-16 15:37] VITALS: BP 151/77; PULSE 64; RESP 18; TEMP 36.2; O2SAT 97
[2021-05-16 16:18] VITALS: BMI 27.3
[2021-05-16] MEDS: Cefdinir 300 MG Capsule PO (17:42)
[2021-05-16] MEDS: Carbidopa/Levodopa 25/100 Tablet PO (17:42)
[2021-05-16 17:44] VITALS: BP 191/74
--- NOTE | 2021-05-16 17:48 | NURSING ---
Dr Garza aware of elevated BP. Orders to stop Midodrine.
--- NOTE | 2021-05-16 20:25 | HP.PCM_ITS ---
HPI - General General Date of Admission: 05/16/21 HPI Narrative 05/14/2021 VIPUL RODRÍGUEZ, is a 75 Female who presents to [facility] Emergency Department with weakness. 05/14/2021 EKG normal sinus rhythm with sinus arrhythmia, Normal EKG. Fall at home, increasing weakness, nausea, vomiting, diarrhea. More confused, Rocephin IM given 05/11/2021, urine culture showed no significant growth. IV Fluids, Reglan given for nausea. CT head okay, Chest X-ray okay. Rocephin IV given for urinary tract infection, UA consistent with urinary tract infection. 05/14/2021 Admit to Hospital. Rocephin IV for urinary tract infection. PT/OT for debility. 05/15/2021 Confused. Continue Rocephin IV for urinary tract infection, urine culture pending, blood culture pending. PT/OT recommended Care Home Facility. Cefdinir 300MG BID x 5 days for urinary tract infection. 05/16/2021 Admit to TCU with debility, here for rehabilitation, strengthening, prior to discharge home with family. [facility] [place] Medical History Arthritis Depression Diabetes mellitus, type 2 Hemorrhoids Hyperlipidemia Hypertension Hypothyroidism Home Medications citalopram 30 mg PO DAILY 12/31/14 [History Last Taken 10/05/18] levothyroxine 100 mcg PO DAILY 12/31/14 [History Last Taken 10/05/18] aspirin 162 mg PO QHS 10/11/17 [History Last Taken 10/05/18] rosuvastatin 10 mg PO QHS 04/20/18 [History Last Taken 10/05/18] carbidopa-levodopa 1 ea PO QHS 10/21/19 [History Last Taken Unknown] carbidopa-levodopa 1 tab PO TIDAC 10/21/19 [History Last Taken Unknown] Myrbetriq 25 mg PO BID 05/14/21 [History Last Taken Unknown] midodrine 2.5 mg PO TID 05/14/21 [History Last Taken Unknown] omeprazole 20 mg PO DAILY 05/14/21 [History Last Taken Unknown] oxybutynin chloride 5 mg PO QHS 05/14/21 [History Last Taken Unknown] cefdinir 300 mg PO BID 05/16/21 [History Last Taken Unknown] Allergy/AdvReac Type Severity Reaction Status Date / Time diclofenac sodium Allergy kidneys Verified 05/14/21 21:00 [From [employer]] shut down misoprostol [From [employer]] Allergy kidneys Verified 05/14/21 21:00 shut down Family History Other Cancer Surgical History History of cholecystectomy Social History household members: family Smoking Status: Former smoker alcohol intake: never substance use type: does not use ROS Constitutional Constitutional: Denies chills, fever(s) or weight gain ENT HEENT: Denies headache(s), nasal congestion or nasal discharge Cardiovascular Cardiovascular: Denies chest pain or palpitations Respiratory/Chest Respiratory/Chest: Denies cough, excessive phlegm production or shortness of breath with exertion Gastrointestinal Gastrointestinal: Denies abdominal pain, nausea or vomiting Genitourinary Genitourinary: Denies dysuria Musculoskeletal Musculoskeletal: Denies joint pain or joint swelling Integumentary Integumentary: Denies rash or wounds Neurologic Neurologic: Denies focal weakness, numbness or tingling Psychiatric Psychiatric: Reports auditory hallucinations; Denies anxiety, depression, homicidal ideation or suicidal ideation Vital Signs Vital Signs Vital Signs: 05/16/21 15:37 05/16/21 16:19 05/16/21 17:44 Temperature 97.1 F L Temperature Source Temporal Pulse Rate 64 Pulse Rhythm Regular Respiratory Rate 18 Respiratory Effort Normal Respiratory Depth Normal Respiratory Pattern Normal Blood Pressure 151/77 H 191/74 H Blood Pressure Mean 101 113 Blood Pressure Source Monitor Monitor Blood Pressure Position Sitting Sitting Blood Pressure Location Left Forearm Left Arm Pulse Ox 97 Oxygen Delivery Method Room Air Room Air Weight Weight: 63.503 kg Body Mass Index (BMI) 27.3 Physical Exam Const alert and oriented x3 General Appearance: cooperative HEENT normocephalic Eyes PERRL and EOMs intact bilaterally Neck supple, no JVD and no carotid bruits Resp normal respiratory effort, normal air movement and clear to auscultation bilaterally Cardio regular rate and regular rhythm GI normal to inspection, nondistended, normoactive bowel sounds, non-tender and non-distended Extremity normal capillary refill General Extremity: Negative for edema Skin no rashes or lesions noted General Skin Exam: no breakdown Psych affect normal Appearance: appropriate Results Lab / Micro Data Micro: Microbiology 05/16/21 16:42 SARS-CoV-2 Antigen (Rapid) - Final Mucosa - Nose Assessment & Plan Assessment/Plan (1) Debility: (2) Encephalopathy: (3) Acute UTI: (4) Depression: (5) Hypothyroidism: (6) Hyperlipidemia: (7) Parkinson disease: (8) Overactive bladder: (9) Gastroesophageal reflux disease: PLAN: 75 year old female with below past medical history hospitalized for encephalopathy secondary to urinary tract infection, admitted to TCU with debility, here for rehabilitation, strengthening, prior to discharge home with family. * Debility - PT/OT. * Pain - Tylenol 1000MG Q6H PRN pain (1-10). * Bowel - Miralax 17GM daily, Senna/colace 1 tablet twice daily, Dulcolax 10MG daily PRN. * Adult immunization - Administer Prevnar 13, Pneumovax 23, Fluzone, COVID19 vaccine as appropriate. * DVT prophylaxis - Lovenox 40MG SC daily. * TIA - Aspirin 81MG QHS. * Hyperlipidemia - Atorvastatin 20MG QHS. * Parkinson Disease - Sinemet 25/100MG TIDAC, 50/200MG QHS. * Urinary tract infection - Cefdinir 300MG BID x 5 days, monitor urine culture. 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 * Hypothyroidism - Levothyroxine 100MCG daily. * Overactive bladder - Myrbetriq 25MG twice daily. * GERD - Pantoprazole 20MG daily.
[2021-05-16] MEDS: Mirabegron 25 MG TAB.ER.24H PO (20:39)
[2021-05-16] MEDS: Aspirin 81 MG TAB.CHEW 162 MG PO (20:39)
[2021-05-16] MEDS: Oxybutynin 5 MG Tablet PO (20:39)
[2021-05-16] MEDS: Atorvastatin Calcium 20 MG Tablet PO (20:39)
[2021-05-16] MEDS: CARBIDOPA/LEVODOPA CR 50/200 Tablet PO (20:40)
[2021-05-17] MEDS: Citalopram 10 MG Tablet 30 MG PO (05:24)
[2021-05-17] MEDS: Mirabegron 25 MG TAB.ER.24H PO ×2 (05:24→18:00)
[2021-05-17] MEDS: Cefdinir 300 MG Capsule PO ×2 (05:24→18:00)
[2021-05-17] MEDS: Levothyroxine 100 MCG Tablet PO (05:25)
[2021-05-17] MEDS: Carbidopa/Levodopa 25/100 Tablet PO ×3 (05:25→18:00)
[2021-05-17] MEDS: Polyethylene Glycol 3350 17 GM PACKET PO (05:25)
[2021-05-17] MEDS: Pantoprazole Sodium 20 MG Tablet PO (05:25)
[2021-05-17] MEDS: Senna/Docusate Sodium 1 Tablet PO ×2 (05:26→18:01)
[2021-05-17] MEDS: Enoxaparin 40 MG/0.4 ML Syringe SC (05:26)
[2021-05-17 05:33] VITALS: BP 175/78; PULSE 74; RESP 16; TEMP 36.6; O2SAT 98
[2021-05-17 05:51] LABS: Absolute Lymphocyte Count 1.79 X10^3/uL (0.83-4.51); Absolute Neutrophil Count 3.3 X10^3/uL (2.0-7.7); Basophil# 0.02 X10^3/uL; Basophil% 0.3 % (0-1); Hematocrit 39.2 % (37-47); Hemoglobin 12.6 g/dL (12.0-15.0); Lymphocyte # 1.79 X10^3/ul (0.83-4.51); Lymphocyte % 28.8 % (19-41); Mean Corp Hgb Conc 32.1 g/dL (32-36); Mean Corpuscular Hgb 29.1 pg (27.0-32.0); Mean Corpuscular Volume 90.5 fL (81-99); Mean Platelet Vol. 11.5 fl (6.2-12.0); Monocyte# 0.59 X10^3/uL; Monocyte% 9.5 % (0-10); NRBC Flagged by Analyzer 0 % (0-5); Neutrophil # 3.31 X10^3/uL (2.7-7.7); Neutrophil % 53.2 % (47-70); Platelet Count 211 K/mm3 (150-450); RBC Distribution Width CV 14.2 % (11.6-14.6); RBC Distribution Width SD 47.8 fl (35.1-43.9); Red Blood Count 4.33 M/mm3 (4.2-5.4); White Blood Count 6.2 K/mm3 (4.4-11.0)
[2021-05-17 06:17] LABS: Anion Gap 7 (5-15); BUN 21 mg/dL (7-18); BUN/Creat Ratio 25.5 RATIO (10-20); Calcium,Total 8.8 mg/dL (8.5-10.1); Chloride 106 mmol/L (98-107); Creatinine, Serum 0.82 mg/dL (0.55-1.02); EST Glomerular Filtration Rate 72 mL/min (>60); Est Glom Filt Rate - Afr Amer 87 mL/min (>60); Estimated Creatinine Clearance 41.92 ml/min; Glucose 106 mg/dL (74-106); Potassium 3.9 mmol/L (3.5-5.1); Sodium Level 139 mmol/L (136-145)
[2021-05-17 06:36] LABS: Bedside Glucose 107 mg/dL (70-110)
[2021-05-17 10:50] LABS: Bedside Glucose 174 mg/dL (70-110)
[2021-05-17 10:55] LABS: Bedside Glucose 196 mg/dL (70-110)
--- NOTE | 2021-05-17 11:20 | PCM.PN.RX ---
Progress Note - Pharmacy Subjective: TCU Admission Objective: Allergies diclofenac sodium [From [employer]] Allergy (Verified 05/14/21 21:00) kidneys shut down KIDNEYS SHUT DOWN PT STATES misoprostol [From [employer]] Allergy (Verified 05/14/21 21:00) kidneys shut down KIDNEYS SHUT DOWN PT STATES Current Medications Generic Name Dose Route Start Last Admin Trade Name Freq PRN Reason Stop Dose Admin Acetaminophen 1,000 mg 05/16/21 20:39 Acetaminophen 500 Mg Tablet PO Q6H PRN PRN Pain Score 1-10 Aspirin 81 mg 05/16/21 22:00 05/16/21 21:50 Aspirin 81 Mg Tab.Chew PO Not Given QHS RENETTA Atorvastatin Calcium 20 mg 05/16/21 22:00 05/16/21 20:39 Atorvastatin Calcium 20 Mg Tablet PO 20 mg QHS RENETTA Administration Bisacodyl 10 mg 05/16/21 20:39 Bisacodyl 5 Mg Tablet PO DAILY PRN CONSTIPATION Carbidopa/Levodopa 1 tablet 05/16/21 22:00 05/16/21 20:40 Carbidopa/Levodopa Cr 50/200 Tablet PO 1 tablet QHS RENETTA Administration Carbidopa/Levodopa 1 tablet 05/16/21 16:45 05/17/21 05:25 Carbidopa/Levodopa 25/100 Tablet PO 1 tablet TIDAC RENETTA Administration Cefdinir 300 mg 05/16/21 18:00 05/17/21 05:24 Cefdinir 300 Mg Capsule PO 05/21/21 18:01 300 mg BID RENETTA Administration Citalopram Hydrobromide 30 mg 05/17/21 06:00 05/17/21 05:24 Citalopram 10 Mg Tablet PO 30 mg DAILY RENETTA Administration Enoxaparin Sodium 40 mg 05/17/21 06:00 05/17/21 05:26 Enoxaparin 40 Mg/0.4 Ml Syringe SC 40 mg DAILY@0600 RENETTA Administration Levothyroxine Sodium 100 mcg 05/17/21 06:00 05/17/21 05:25 Levothyroxine 100 Mcg Tablet PO 100 mcg DAILY RENETTA Administration Mirabegron 25 mg 05/16/21 18:00 05/17/21 05:24 Mirabegron 25 Mg Tab.Er.24h PO 25 mg BID RENETTA Administration Pantoprazole Sodium 20 mg 05/17/21 06:00 05/17/21 05:25 Pantoprazole Sodium 20 Mg Tablet PO 20 mg DAILY RENETTA Administration Polyethylene Glycol 17 gm 05/17/21 06:00 05/17/21 05:25 Polyethylene Glycol 3350 17 Gm Packet PO 17 gm DAILY RENETTA Administration Senna/Docusate Sodium 1 tablet 05/17/21 06:00 05/17/21 05:26 Senna/Docusate Sodium 1 Tablet PO 1 tablet BID RENETTA Administration Tuberculin PPD 0.1 ml 05/24/21 10:00 Tuberculin,Purif.Prot.Deriv. 50 Tu/Ml Vial ID 05/24/21 10:01 X1 ONE Problem List (Last Reviewed 05/16/21 @ 20:[address] Beltran Garza MD) Gastroesophageal reflux disease (Acute) Overactive bladder (Acute) Parkinson disease (Acute) Hyperlipidemia (Acute) Hypothyroidism (Acute) Depression (Acute) Encephalopathy (Acute) Debility (Acute) Acute UTI (Acute) Vital Signs Temp Pulse Resp BP Pulse Ox 97.8 F 74 16 175/78 H 98 05/17/21 05:33 05/17/21 05:33 05/17/21 05:33 05/17/21 05:33 05/17/21 05:33 Oxygen Delivery Method Room Air Weight: 63.503 kg Body Mass Index (BMI) 27.3 Sodium 139 mmol/L (136-145) 05/17/21 05:18 Potassium 3.9 mmol/L (3.5-5.1) 05/17/21 05:18 Chloride 106 mmol/L (98-107) 05/17/21 05:18 Carbon Dioxide 26.0 mmol/L (21.0-32.0) 05/17/21 05:18 Anion Gap 7 (5-15) 05/17/21 05:18 BUN 21 mg/dL (7-18) H 05/17/21 05:18 Creatinine 0.82 mg/dL (0.55-1.02) 05/17/21 05:18 Est GFR (MDRD) Af Amer 87 mL/min (>60) 05/17/21 05:18 Est GFR (MDRD) Non-Af 72 mL/min (>60) 05/17/21 05:18 BUN/Creatinine Ratio 25.5 RATIO (10-20) H 05/17/21 05:18 Glucose 106 mg/dL (74-106) 05/17/21 05:18 Assessment/Plan: 1. Pain: acetaminophen 1000mg PO Q6H PRN pain 1-08/27. Please continue to monitor for increased pain and PRN usage. 2. DVT prophylaxis: enoxaparin 40mg SC daily. Please continue to monitor hemoglobin (last 12.6g/dL), platelets (last 211,000), S/S of bleeding and renal function. 3. Urinary tract infection: cefdinir 300mg PO BID thru 05/21/21. Please continue to monitor for S/S of infection, discolored stool, renal function and urine culture. 4. TIA: aspirin 81mg PO QHS. Please continue to monitor hemoglobin and for S/S of bleeding. *5. Hyperlipidemia: atorvastatin 20mg PO QHS. Please consider ordering a lipid panel. Last panel from 10/12/17. Thanks. Please continue to monitor for muscle pain. 6. Parkinson disease: carbidopa/levodopa 25/100mg 1T PO TIDAC and carbidopa/levodopa CR 50/200mg 1T PO QHS. Please continue to monitor for dyskinesia and GI upset. 7. Hypothyroidism: levothyroxine 100mcg PO daily. Please continue to monitor TSH (last 05/12/21) and S/S of hypo/hyperthyroidism. 8. Overactive bladder: mirabegron 25mg PO BID. Please continue to monitor for anticholinergic side effects. 9. GERD: pantoprazole 20mg PO daily. Please continue to monitor for S/S of GERD and diarrhea. Psychotropic Medications: 1. Depression: citalopram 30mg PO daily. Please see physician note regarding GDR. Unnecessary Medications: None Bowel Regimen: Miralax 17gm PO daily, senna/docusate 1T PO BID and bisacodyl 10mg PO daily PRN constipation. Please continue to monitor for constipation and PRN usage. Date of Note:: 05/17/21
[2021-05-17] MEDS: Tuberculin,Purif.prot.deriv. 50 TU/ML Vial 0.1 ML ID (12:17)
[2021-05-17 15:01] VITALS: BP 138/81; PULSE 76; RESP 16; TEMP 36.1; O2SAT 98
[2021-05-17] MEDS: Aspirin 81 MG TAB.CHEW PO (20:38)
[2021-05-17] MEDS: Atorvastatin Calcium 20 MG Tablet PO (20:38)
[2021-05-17] MEDS: CARBIDOPA/LEVODOPA CR 50/200 Tablet PO (20:39)
[2021-05-17 21:21] LABS: Bedside Glucose 186 mg/dL (70-110)
[2021-05-17 23:31] VITALS: PULSE 72; RESP 16; O2SAT 98
[2021-05-18] MEDS: Bisacodyl 5 MG Tablet 10 MG PO (03:23)
[2021-05-18] MEDS: Acetaminophen 500 MG Tablet 1000 MG PO ×2 (03:23→20:46)
[2021-05-18 05:00] VITALS: BP 166/68; PULSE 74; RESP 16; TEMP 36.3; O2SAT 95
[2021-05-18 06:25] LABS: Bedside Glucose 101 mg/dL (70-110)
[2021-05-18] MEDS: Citalopram 10 MG Tablet 30 MG PO (06:30)
[2021-05-18] MEDS: Polyethylene Glycol 3350 17 GM PACKET PO (06:30)
[2021-05-18] MEDS: Senna/Docusate Sodium 1 Tablet PO ×2 (06:31→17:15)
[2021-05-18] MEDS: Mirabegron 25 MG TAB.ER.24H PO ×2 (06:31→17:16)
[2021-05-18] MEDS: Cefdinir 300 MG Capsule PO ×2 (06:31→17:15)
[2021-05-18] MEDS: Enoxaparin 40 MG/0.4 ML Syringe SC (06:31)
[2021-05-18] MEDS: Carbidopa/Levodopa 25/100 Tablet PO ×3 (06:31→17:16)
[2021-05-18] MEDS: Pantoprazole Sodium 20 MG Tablet PO (06:31)
[2021-05-18] MEDS: Levothyroxine 100 MCG Tablet PO (06:31)
[2021-05-18] MEDS: Menthol/Lanolin/Calamine/Znox 113 GM Tube 1 APPLIC TOPICAL ×3 (06:34→20:47)
--- NOTE | 2021-05-18 06:47 | NURSING ---
While giving patient her AM medications, this Nurse noticed blood on the top of patient's head. After assessing area, it appears patient scratched a mole open. Part of the mole is hanging there. RN aware. Note left for Dr. Garza.
[2021-05-18 13:32] VITALS: BP 155/89; PULSE 80; RESP 16; TEMP 36.8; O2SAT 95
--- NOTE | 2021-05-18 16:24 | CHAPLAIN ---
Type of Pastoral Visit _x__ Initial Visit ___ Follow-up Visit ___ On-call Visit ___ General Patient Visit ___ Spiritual Assessment ___ Family Conference ___ Bereavement ___ Rapid Response ___ Code Blue ___ Other (describe below) Pastoral Care Referral From _x__ Patient ___ Family ___ Nurse ___ Physician ___ Paralegal Instructor ___ System Operator ___ Other (describe below) Sacrament/Intervention _x__ Active listening ___ Anointing ___ Muslim ___ Bereavement ___ Communion ___ Karla exploration ___ ___ Life review _x__ Prayer ___ Reconciliation ___ Sacrament of Sick _x__ Supportive presence ___ Wedding ___ Other (describe below) Pastoral Comments patient presents with a jovial attitude although speaks of family problems at the same time; pt says she was a few months ago but does not list that as a concern; pt welcomes prayer
[2021-05-18] MEDS: BACITRACIN 15 GM Tube 1 APPLIC TOPICAL (17:15)
[2021-05-18] MEDS: Atorvastatin Calcium 20 MG Tablet PO (20:46)
[2021-05-18] MEDS: CARBIDOPA/LEVODOPA CR 50/200 Tablet PO (20:46)
[2021-05-18] MEDS: Aspirin 81 MG TAB.CHEW PO (20:46)
[2021-05-18 20:49] VITALS: PULSE 73; O2SAT 96
[2021-05-19] MEDS: Acetaminophen 500 MG Tablet 1000 MG PO (02:55)
[2021-05-19 05:00] VITALS: BP 183/110; PULSE 74; RESP 18; O2SAT 97
[2021-05-19] MEDS: Polyethylene Glycol 3350 17 GM PACKET PO (05:51)
[2021-05-19] MEDS: BACITRACIN 15 GM Tube 1 APPLIC TOPICAL ×2 (05:51→17:45)
[2021-05-19] MEDS: Menthol/Lanolin/Calamine/Znox 113 GM Tube 1 APPLIC TOPICAL ×3 (05:52→21:08)
[2021-05-19] MEDS: Levothyroxine 100 MCG Tablet PO (05:52)
[2021-05-19] MEDS: Mirabegron 25 MG TAB.ER.24H PO ×2 (05:52→17:44)
[2021-05-19] MEDS: Cefdinir 300 MG Capsule PO ×2 (05:52→17:44)
[2021-05-19] MEDS: Pantoprazole Sodium 20 MG Tablet PO (05:52)
[2021-05-19] MEDS: Enoxaparin 40 MG/0.4 ML Syringe SC (05:52)
[2021-05-19] MEDS: Citalopram 10 MG Tablet 30 MG PO (05:52)
[2021-05-19] MEDS: Carbidopa/Levodopa 25/100 Tablet PO ×3 (05:52→17:44)
[2021-05-19] MEDS: Senna/Docusate Sodium 1 Tablet PO ×2 (05:53→17:44)
[2021-05-19 06:26] LABS: Bedside Glucose 122 mg/dL (70-110)
[2021-05-19] MEDS: Losartan Potassium 100 MG Tablet PO (08:26)
--- NOTE | 2021-05-19 10:11 | CASEMGMT ---
Social Work Brief Interview for Mental Status(14) and PHQ-9 (7) completed this date. SW spoke w/pt about her mood. She states has been feeling down the last few days as her sister just . Pt spoke fondly of her sister, support given. Pt also reports feeling tired, trouble concentrating and moving more slowly than usual, pt attributes these symptoms to her medical diagnoses. Pt is not interested in taking any medication at this time for her mood. SW let pt know SW is available for support as needed. Pt states understanding, thanked SW for speaking w/her. TRINA Kramer
--- NOTE | 2021-05-19 10:22 | NURSING ---
BP 183/110, N.O. losartan x1 dose then daily, BP rechecked and medication effective BP 139/66
[2021-05-19 10:23] VITALS: BP 139/66; PULSE 69
[2021-05-19 15:58] VITALS: BP 148/69; PULSE 75; RESP 16; TEMP 36.8; O2SAT 99
[2021-05-19] MEDS: CARBIDOPA/LEVODOPA CR 50/200 Tablet PO (21:07)
[2021-05-19] MEDS: Aspirin 81 MG TAB.CHEW PO (21:08)
[2021-05-19] MEDS: Atorvastatin Calcium 20 MG Tablet PO (21:08)
[2021-05-20] MEDS: BACITRACIN 15 GM Tube 1 APPLIC TOPICAL ×2 (06:08→17:28)
[2021-05-20] MEDS: Menthol/Lanolin/Calamine/Znox 113 GM Tube 1 APPLIC TOPICAL ×3 (06:09→21:05)
[2021-05-20 06:11] VITALS: BP 155/63; PULSE 72; RESP 14; TEMP 36.8; O2SAT 95
[2021-05-20] MEDS: Polyethylene Glycol 3350 17 GM PACKET PO (06:13)
[2021-05-20] MEDS: Losartan Potassium 100 MG Tablet PO (06:13)
[2021-05-20] MEDS: Levothyroxine 100 MCG Tablet PO (06:13)
[2021-05-20] MEDS: Citalopram 10 MG Tablet 30 MG PO (06:13)
[2021-05-20] MEDS: Cefdinir 300 MG Capsule PO ×2 (06:14→17:26)
[2021-05-20] MEDS: Mirabegron 25 MG TAB.ER.24H PO ×2 (06:14→17:26)
[2021-05-20] MEDS: Senna/Docusate Sodium 1 Tablet PO ×2 (06:14→17:28)
[2021-05-20] MEDS: Pantoprazole Sodium 20 MG Tablet PO (06:15)
[2021-05-20] MEDS: Carbidopa/Levodopa 25/100 Tablet PO ×3 (06:16→17:27)
[2021-05-20] MEDS: Enoxaparin 40 MG/0.4 ML Syringe SC (06:21)
[2021-05-20 06:26] LABS: Bedside Glucose 90 mg/dL (70-110)
[2021-05-20 15:38] VITALS: BP 131/78; PULSE 82; RESP 17; TEMP 36.7; O2SAT 94
[2021-05-20] MEDS: Atorvastatin Calcium 20 MG Tablet PO (21:05)
[2021-05-20] MEDS: CARBIDOPA/LEVODOPA CR 50/200 Tablet PO (21:06)
[2021-05-20] MEDS: Aspirin 81 MG TAB.CHEW PO (21:07)
[2021-05-20] MEDS: Acetaminophen 500 MG Tablet 1000 MG PO (21:20)
[2021-05-21 05:57] VITALS: BP 187/72; PULSE 69; RESP 16; TEMP 36.4
[2021-05-21] MEDS: BACITRACIN 15 GM Tube 1 APPLIC TOPICAL ×2 (05:59→16:41)
[2021-05-21] MEDS: Enoxaparin 40 MG/0.4 ML Syringe SC (05:59)
[2021-05-21] MEDS: Menthol/Lanolin/Calamine/Znox 113 GM Tube 1 APPLIC TOPICAL ×3 (05:59→20:28)
[2021-05-21] MEDS: Cefdinir 300 MG Capsule PO ×2 (06:00→16:41)
[2021-05-21] MEDS: Mirabegron 25 MG TAB.ER.24H PO ×2 (06:00→16:41)
[2021-05-21] MEDS: Polyethylene Glycol 3350 17 GM PACKET PO (06:00)
[2021-05-21] MEDS: Losartan Potassium 100 MG Tablet PO (06:00)
[2021-05-21] MEDS: Citalopram 10 MG Tablet 30 MG PO (06:00)
[2021-05-21] MEDS: Senna/Docusate Sodium 1 Tablet PO (06:01)
[2021-05-21] MEDS: Levothyroxine 100 MCG Tablet PO (06:01)
[2021-05-21] MEDS: Carbidopa/Levodopa 25/100 Tablet PO ×3 (06:01→16:41)
[2021-05-21] MEDS: Pantoprazole Sodium 20 MG Tablet PO (06:01)
[2021-05-21] MEDS: Acetaminophen 500 MG Tablet 1000 MG PO (06:04)
[2021-05-21 06:26] LABS: Bedside Glucose 120 mg/dL (70-110)
[2021-05-21] MEDS: amLODIPine 2.5 MG Tablet PO (08:31)
[2021-05-21 08:32] VITALS: BP 163/52; PULSE 64
--- NOTE | 2021-05-21 08:33 | NURSING ---
dr duran aware of elevated BP this AM, new order for norvasc 2.5mg x1. rechecked BP before administering 163/52 HR 64. pt asymptomatic, resting in bed with eyes closed. call light in reach, bed alarm in place.
[2021-05-21 08:39] VITALS: PULSE 73; RESP 18; O2SAT 98
[2021-05-21 14:23] VITALS: BP 185/79; PULSE 80; RESP 14; TEMP 36.1; O2SAT 98
[2021-05-21 16:44] VITALS: BP 147/66; PULSE 67
[2021-05-21] MEDS: CARBIDOPA/LEVODOPA CR 50/200 Tablet PO (20:28)
[2021-05-21] MEDS: Atorvastatin Calcium 20 MG Tablet PO (20:28)
[2021-05-21] MEDS: Aspirin 81 MG TAB.CHEW PO (20:28)
[2021-05-22] MEDS: Enoxaparin 40 MG/0.4 ML Syringe SC (04:50)
[2021-05-22] MEDS: Senna/Docusate Sodium 1 Tablet PO ×2 (04:51→18:02)
[2021-05-22] MEDS: Pantoprazole Sodium 20 MG Tablet PO (04:51)
[2021-05-22] MEDS: Mirabegron 25 MG TAB.ER.24H PO ×2 (04:51→18:01)
[2021-05-22] MEDS: Losartan Potassium 100 MG Tablet PO (04:51)
[2021-05-22] MEDS: amLODIPine 2.5 MG Tablet PO (04:51)
[2021-05-22] MEDS: Citalopram 10 MG Tablet 30 MG PO (04:51)
[2021-05-22] MEDS: Levothyroxine 100 MCG Tablet PO (04:51)
[2021-05-22] MEDS: Polyethylene Glycol 3350 17 GM PACKET PO (04:52)
[2021-05-22] MEDS: Carbidopa/Levodopa 25/100 Tablet PO ×3 (04:52→15:40)
[2021-05-22] MEDS: Menthol/Lanolin/Calamine/Znox 113 GM Tube 1 APPLIC TOPICAL ×3 (04:52→21:10)
[2021-05-22] MEDS: BACITRACIN 15 GM Tube 1 APPLIC TOPICAL ×2 (04:54→18:01)
[2021-05-22 06:31] LABS: Bedside Glucose 93 mg/dL (70-110)
[2021-05-22 07:33] VITALS: BP 167/73; PULSE 68; RESP 14; TEMP 36.2; O2SAT 100
[2021-05-22 14:30] VITALS: BP 126/61; PULSE 76; RESP 15; TEMP 36.6; O2SAT 98
[2021-05-22] MEDS: Atorvastatin Calcium 20 MG Tablet PO (21:10)
[2021-05-22] MEDS: Aspirin 81 MG TAB.CHEW PO (21:10)
[2021-05-22] MEDS: CARBIDOPA/LEVODOPA CR 50/200 Tablet PO (21:10)
[2021-05-23 05:00] VITALS: BP 154/81; PULSE 78; RESP 16; TEMP 36.7; O2SAT 97
[2021-05-23] MEDS: BACITRACIN 15 GM Tube 1 APPLIC TOPICAL ×2 (05:09→17:08)
[2021-05-23] MEDS: Menthol/Lanolin/Calamine/Znox 113 GM Tube 1 APPLIC TOPICAL ×3 (05:09→21:04)
[2021-05-23] MEDS: Citalopram 10 MG Tablet 30 MG PO (05:10)
[2021-05-23] MEDS: Enoxaparin 40 MG/0.4 ML Syringe SC (05:10)
[2021-05-23] MEDS: Polyethylene Glycol 3350 17 GM PACKET PO (05:10)
[2021-05-23] MEDS: Losartan Potassium 100 MG Tablet PO (05:10)
[2021-05-23] MEDS: Levothyroxine 100 MCG Tablet PO (05:11)
[2021-05-23] MEDS: amLODIPine 5 MG Tablet PO (05:11)
[2021-05-23] MEDS: Pantoprazole Sodium 20 MG Tablet PO (05:11)
[2021-05-23] MEDS: Mirabegron 25 MG TAB.ER.24H PO ×2 (05:11→17:09)
[2021-05-23] MEDS: Carbidopa/Levodopa 25/100 Tablet PO ×3 (05:12→15:55)
[2021-05-23] MEDS: Senna/Docusate Sodium 1 Tablet PO ×2 (05:13→17:09)
[2021-05-23 06:25] LABS: Bedside Glucose 101 mg/dL (70-110)
[2021-05-23 10:49] VITALS: PULSE 76; RESP 18; O2SAT 96
[2021-05-23 16:22] VITALS: BP 115/65; PULSE 76; RESP 18; TEMP 36.9; O2SAT 96
[2021-05-23] MEDS: Atorvastatin Calcium 20 MG Tablet PO (21:03)
[2021-05-23] MEDS: CARBIDOPA/LEVODOPA CR 50/200 Tablet PO (21:03)
[2021-05-23] MEDS: Aspirin 81 MG TAB.CHEW PO (21:03)
[2021-05-24 04:57] VITALS: BP 160/78; PULSE 78; RESP 16; TEMP 36.4; O2SAT 98
[2021-05-24] MEDS: Enoxaparin 40 MG/0.4 ML Syringe SC (04:58)
[2021-05-24] MEDS: Polyethylene Glycol 3350 17 GM PACKET PO (04:59)
[2021-05-24] MEDS: amLODIPine 5 MG Tablet PO (05:00)
[2021-05-24] MEDS: Losartan Potassium 100 MG Tablet PO (05:00)
[2021-05-24] MEDS: Mirabegron 25 MG TAB.ER.24H PO ×2 (05:00→17:00)
[2021-05-24] MEDS: Pantoprazole Sodium 20 MG Tablet PO (05:00)
[2021-05-24] MEDS: Levothyroxine 100 MCG Tablet PO (05:00)
[2021-05-24] MEDS: Citalopram 10 MG Tablet 30 MG PO (05:00)
[2021-05-24] MEDS: Menthol/Lanolin/Calamine/Znox 113 GM Tube 1 APPLIC TOPICAL ×3 (05:01→21:06)
[2021-05-24] MEDS: Senna/Docusate Sodium 1 Tablet PO ×2 (05:01→17:00)
[2021-05-24] MEDS: Carbidopa/Levodopa 25/100 Tablet PO ×3 (05:01→17:00)
[2021-05-24] MEDS: BACITRACIN 15 GM Tube 1 APPLIC TOPICAL ×2 (05:02→17:00)
[2021-05-24 06:11] LABS: Absolute Lymphocyte Count 1.91 X10^3/uL (0.83-4.51); Absolute Neutrophil Count 3.3 X10^3/uL (2.0-7.7); Basophil# 0.04 X10^3/uL; Basophil% 0.6 % (0-1); Eosinophil# 0.48 X10^3/uL; Eosinophils% 7.6 % (0-5); Hematocrit 40.4 % (37-47); Hemoglobin 12.8 g/dL (12.0-15.0); Lymphocyte # 1.91 X10^3/ul (0.83-4.51); Lymphocyte % 30.2 % (19-41); Mean Corp Hgb Conc 31.7 g/dL (32-36); Mean Corpuscular Hgb 28.8 pg (27.0-32.0); Mean Corpuscular Volume 90.8 fL (81-99); Mean Platelet Vol. 11.8 fl (6.2-12.0); Monocyte# 0.57 X10^3/uL; NRBC Flagged by Analyzer 0 % (0-5); Neutrophil % 52.3 % (47-70); Platelet Count 228 K/mm3 (150-450); RBC Distribution Width CV 14.2 % (11.6-14.6); RBC Distribution Width SD 47.6 fl (35.1-43.9); Red Blood Count 4.45 M/mm3 (4.2-5.4); White Blood Count 6.3 K/mm3 (4.4-11.0)
[2021-05-24 06:31] LABS: Anion Gap 7 (5-15); BUN 43 mg/dL (7-18); BUN/Creat Ratio 56.7 RATIO (10-20); Chloride 106 mmol/L (98-107); Creatinine, Serum 0.76 mg/dL (0.55-1.02); EST Glomerular Filtration Rate 79 mL/min (>60); Est Glom Filt Rate - Afr Amer 95 mL/min (>60); Estimated Creatinine Clearance 34.38 ml/min; Glucose 105 mg/dL (74-106); Potassium 4.2 mmol/L (3.5-5.1); Sodium Level 138 mmol/L (136-145)
[2021-05-24 06:31] LABS: Bedside Glucose 113 mg/dL (70-110)
[2021-05-24] MEDS: Tuberculin,Purif.prot.deriv. 50 TU/ML Vial 0.1 ML ID (11:40)
--- NOTE | 2021-05-24 14:30 | CASEMGMT ---
Social Work Plan of care meeting held. Patient present as well as patient daughter. No discharge date set. Patient to continue with further care and treatment on the Transitional Care Unit. Patient plans to discharge to home with daughter at time of discharge. Team communicating 10/06 supervision as recommendation for patient carer at time off discharge, patient daughter voicing understanding. Patient with next insurance update due on 05/29/2021. Will continue to follow. Danielle MARTINEZ, CLARISSE-S
[2021-05-24 15:31] VITALS: BP 110/59; PULSE 74; RESP 16; TEMP 36.3; O2SAT 96
[2021-05-24] MEDS: Aspirin 81 MG TAB.CHEW PO (21:05)
[2021-05-24] MEDS: CARBIDOPA/LEVODOPA CR 50/200 Tablet PO (21:05)
[2021-05-24] MEDS: Atorvastatin Calcium 20 MG Tablet PO (21:05)
[2021-05-24 22:46] VITALS: PULSE 76; RESP 16; O2SAT 96
[2021-05-25] MEDS: Acetaminophen 500 MG Tablet 1000 MG PO ×2 (02:58→20:46)
[2021-05-25 04:55] VITALS: BP 168/75; PULSE 78; RESP 14; TEMP 36.6; O2SAT 96
[2021-05-25] MEDS: Enoxaparin 40 MG/0.4 ML Syringe SC (05:00)
[2021-05-25] MEDS: BACITRACIN 15 GM Tube 1 APPLIC TOPICAL ×2 (05:00→18:00)
[2021-05-25] MEDS: Polyethylene Glycol 3350 17 GM PACKET PO (05:01)
[2021-05-25] MEDS: Levothyroxine 100 MCG Tablet PO (05:02)
[2021-05-25] MEDS: Losartan Potassium 100 MG Tablet PO (05:02)
[2021-05-25] MEDS: amLODIPine 5 MG Tablet PO ×2 (05:02→20:48)
[2021-05-25] MEDS: Citalopram 10 MG Tablet 30 MG PO (05:02)
[2021-05-25] MEDS: Pantoprazole Sodium 20 MG Tablet PO (05:02)
[2021-05-25] MEDS: Mirabegron 25 MG TAB.ER.24H PO ×2 (05:02→18:00)
[2021-05-25] MEDS: Carbidopa/Levodopa 25/100 Tablet PO ×3 (05:03→18:00)
[2021-05-25] MEDS: Senna/Docusate Sodium 1 Tablet PO ×2 (05:03→18:00)
[2021-05-25] MEDS: Menthol/Lanolin/Calamine/Znox 113 GM Tube 1 APPLIC TOPICAL ×3 (05:07→20:48)
[2021-05-25 06:41] LABS: Bedside Glucose 117 mg/dL (70-110)
[2021-05-25 10:00] VITALS: PULSE 74; RESP 18; O2SAT 97
[2021-05-25 13:56] VITALS: BP 138/78; PULSE 74; RESP 18; TEMP 36.1; O2SAT 98
[2021-05-25 20:45] VITALS: BP 141/63; PULSE 79; RESP 16; O2SAT 94
[2021-05-25] MEDS: Atorvastatin Calcium 20 MG Tablet PO (20:49)
[2021-05-25] MEDS: Aspirin 81 MG TAB.CHEW PO (20:49)
[2021-05-25] MEDS: CARBIDOPA/LEVODOPA CR 50/200 Tablet PO (20:54)
[2021-05-26 05:44] VITALS: BP 141/81; PULSE 74; RESP 16; TEMP 36.8; O2SAT 96
[2021-05-26] MEDS: Menthol/Lanolin/Calamine/Znox 113 GM Tube 1 APPLIC TOPICAL ×3 (05:45→21:54)
[2021-05-26] MEDS: Losartan Potassium 100 MG Tablet PO (05:46)
[2021-05-26] MEDS: Polyethylene Glycol 3350 17 GM PACKET PO (05:46)
[2021-05-26] MEDS: Citalopram 10 MG Tablet 30 MG PO (05:46)
[2021-05-26] MEDS: Enoxaparin 40 MG/0.4 ML Syringe SC (05:46)
[2021-05-26] MEDS: Mirabegron 25 MG TAB.ER.24H PO ×2 (05:46→17:33)
[2021-05-26] MEDS: Senna/Docusate Sodium 1 Tablet PO (05:47)
[2021-05-26] MEDS: Pantoprazole Sodium 20 MG Tablet PO (05:47)
[2021-05-26] MEDS: Levothyroxine 100 MCG Tablet PO (05:47)
[2021-05-26] MEDS: Carbidopa/Levodopa 25/100 Tablet PO ×3 (05:47→17:35)
[2021-05-26 06:25] LABS: Bedside Glucose 108 mg/dL (70-110)
[2021-05-26] MEDS: Nystatin Powder 15gm Bottle 1 APPLIC TOPICAL ×2 (07:05→17:36)
--- NOTE | 2021-05-26 07:42 | MDS.RN ---
Information for the mds was obtained from review of the clinical record, interview of resident, staff, and direct observation of resident's care.
[2021-05-26 14:58] VITALS: BP 134/75; PULSE 76; RESP 14; TEMP 36.6; O2SAT 94
[2021-05-26] MEDS: CARBIDOPA/LEVODOPA CR 50/200 Tablet PO (21:53)
[2021-05-26] MEDS: Aspirin 81 MG TAB.CHEW PO (21:53)
[2021-05-26] MEDS: Atorvastatin Calcium 20 MG Tablet PO (21:53)
[2021-05-26] MEDS: amLODIPine 5 MG Tablet PO (21:54)
[2021-05-26] MEDS: Acetaminophen 500 MG Tablet 1000 MG PO (21:54)
[2021-05-27 06:03] VITALS: BP 150/62; PULSE 69; RESP 16; TEMP 35.7; O2SAT 98
[2021-05-27] MEDS: Enoxaparin 40 MG/0.4 ML Syringe SC (06:04)
[2021-05-27] MEDS: Menthol/Lanolin/Calamine/Znox 113 GM Tube 1 APPLIC TOPICAL ×3 (06:04→20:44)
[2021-05-27] MEDS: Citalopram 10 MG Tablet 30 MG PO (06:05)
[2021-05-27] MEDS: Losartan Potassium 100 MG Tablet PO (06:06)
[2021-05-27] MEDS: Acetaminophen 500 MG Tablet 1000 MG PO (06:06)
[2021-05-27] MEDS: Levothyroxine 100 MCG Tablet PO (06:07)
[2021-05-27] MEDS: Nystatin Powder 15gm Bottle 1 APPLIC TOPICAL ×2 (06:07→17:45)
[2021-05-27] MEDS: Mirabegron 25 MG TAB.ER.24H PO ×2 (06:07→17:44)
[2021-05-27] MEDS: Pantoprazole Sodium 20 MG Tablet PO (06:07)
[2021-05-27] MEDS: Carbidopa/Levodopa 25/100 Tablet PO ×3 (06:08→17:44)
[2021-05-27 06:31] LABS: Bedside Glucose 96 mg/dL (70-110)
[2021-05-27 12:23] VITALS: PULSE 69; RESP 16; O2SAT 98
[2021-05-27 15:18] VITALS: BP 138/64; PULSE 69; RESP 16; TEMP 36.5; O2SAT 98
[2021-05-27] MEDS: Senna/Docusate Sodium 1 Tablet PO (17:44)
[2021-05-27] MEDS: Atorvastatin Calcium 20 MG Tablet PO (20:43)
[2021-05-27] MEDS: CARBIDOPA/LEVODOPA CR 50/200 Tablet PO (20:43)
[2021-05-27] MEDS: amLODIPine 5 MG Tablet PO (20:44)
[2021-05-27] MEDS: Aspirin 81 MG TAB.CHEW PO (20:44)
[2021-05-27 20:47] VITALS: BP 158/91; PULSE 77
[2021-05-28 05:35] VITALS: BP 147/92; PULSE 66; RESP 18; TEMP 36.5; O2SAT 96
[2021-05-28] MEDS: Enoxaparin 40 MG/0.4 ML Syringe SC (05:39)
[2021-05-28] MEDS: Menthol/Lanolin/Calamine/Znox 113 GM Tube 1 APPLIC TOPICAL ×3 (05:39→20:07)
[2021-05-28] MEDS: Levothyroxine 100 MCG Tablet PO (05:40)
[2021-05-28] MEDS: Senna/Docusate Sodium 1 Tablet PO (05:41)
[2021-05-28] MEDS: Mirabegron 25 MG TAB.ER.24H PO ×2 (05:41→16:44)
[2021-05-28] MEDS: Losartan Potassium 100 MG Tablet PO (05:42)
[2021-05-28] MEDS: Pantoprazole Sodium 20 MG Tablet PO (05:42)
[2021-05-28] MEDS: Citalopram 10 MG Tablet 30 MG PO (05:42)
[2021-05-28] MEDS: Carbidopa/Levodopa 25/100 Tablet PO ×3 (05:43→16:14)
[2021-05-28] MEDS: Nystatin Powder 15gm Bottle 1 APPLIC TOPICAL ×2 (05:44→16:14)
[2021-05-28 06:25] LABS: Bedside Glucose 101 mg/dL (70-110)
[2021-05-28 15:49] VITALS: BP 128/59; PULSE 72; RESP 16; TEMP 36.8; O2SAT 96
[2021-05-28] MEDS: Aspirin 81 MG TAB.CHEW PO (20:06)
[2021-05-28] MEDS: Atorvastatin Calcium 20 MG Tablet PO (20:06)
[2021-05-28] MEDS: CARBIDOPA/LEVODOPA CR 50/200 Tablet PO (20:06)
[2021-05-28] MEDS: amLODIPine 5 MG Tablet PO (20:06)
[2021-05-29] MEDS: Acetaminophen 500 MG Tablet 1000 MG PO ×2 (03:04→20:29)
[2021-05-29 06:07] VITALS: BP 153/77; PULSE 66; RESP 18; TEMP 36.5; O2SAT 96
[2021-05-29] MEDS: Citalopram 10 MG Tablet 30 MG PO (06:08)
[2021-05-29] MEDS: Mirabegron 25 MG TAB.ER.24H PO ×2 (06:08→18:02)
[2021-05-29] MEDS: Levothyroxine 100 MCG Tablet PO (06:08)
[2021-05-29] MEDS: Pantoprazole Sodium 20 MG Tablet PO (06:08)
[2021-05-29] MEDS: Losartan Potassium 100 MG Tablet PO (06:08)
[2021-05-29] MEDS: Enoxaparin 40 MG/0.4 ML Syringe SC (06:08)
[2021-05-29] MEDS: Carbidopa/Levodopa 25/100 Tablet PO ×3 (06:08→15:33)
[2021-05-29] MEDS: Senna/Docusate Sodium 1 Tablet PO (06:09)
[2021-05-29] MEDS: Nystatin Powder 15gm Bottle 1 APPLIC TOPICAL ×2 (06:09→18:04)
[2021-05-29] MEDS: Menthol/Lanolin/Calamine/Znox 113 GM Tube 1 APPLIC TOPICAL ×3 (06:15→20:27)
[2021-05-29 06:16] LABS: Bedside Glucose 95 mg/dL (70-110)
[2021-05-29 14:53] VITALS: BP 101/56; PULSE 61; RESP 16; TEMP 36.6; O2SAT 93
[2021-05-29 20:00] VITALS: PULSE 85; RESP 16; O2SAT 96
[2021-05-29] MEDS: Aspirin 81 MG TAB.CHEW PO (20:27)
[2021-05-29] MEDS: Atorvastatin Calcium 20 MG Tablet PO (20:28)
[2021-05-29] MEDS: CARBIDOPA/LEVODOPA CR 50/200 Tablet PO (20:28)
[2021-05-29] MEDS: amLODIPine 5 MG Tablet PO (20:28)
[2021-05-29 20:32] VITALS: BP 116/55; PULSE 79
[2021-05-30 05:00] VITALS: BP 137/70; PULSE 73; RESP 16; TEMP 36.4; O2SAT 98
[2021-05-30] MEDS: Menthol/Lanolin/Calamine/Znox 113 GM Tube 1 APPLIC TOPICAL ×3 (05:28→22:01)
[2021-05-30] MEDS: Mirabegron 25 MG TAB.ER.24H PO ×2 (05:29→17:26)
[2021-05-30] MEDS: Senna/Docusate Sodium 1 Tablet PO ×2 (05:29→17:26)
[2021-05-30] MEDS: Citalopram 10 MG Tablet 30 MG PO (05:29)
[2021-05-30] MEDS: Carbidopa/Levodopa 25/100 Tablet PO ×3 (05:30→16:30)
[2021-05-30] MEDS: Pantoprazole Sodium 20 MG Tablet PO (05:30)
[2021-05-30] MEDS: Nystatin Powder 15gm Bottle 1 APPLIC TOPICAL ×2 (05:30→17:26)
[2021-05-30] MEDS: Polyethylene Glycol 3350 17 GM PACKET PO (05:30)
[2021-05-30] MEDS: Losartan Potassium 100 MG Tablet PO (05:30)
[2021-05-30] MEDS: Levothyroxine 100 MCG Tablet PO (05:30)
[2021-05-30] MEDS: Enoxaparin 40 MG/0.4 ML Syringe SC (05:30)
[2021-05-30 06:26] LABS: Bedside Glucose 109 mg/dL (70-110)
[2021-05-30] MEDS: Acetaminophen 500 MG Tablet 1000 MG PO ×2 (09:21→22:01)
[2021-05-30 13:52] VITALS: BP 107/60; PULSE 73; RESP 18; TEMP 36.8; O2SAT 97
[2021-05-30] MEDS: CARBIDOPA/LEVODOPA CR 50/200 Tablet PO (21:59)
[2021-05-30] MEDS: Aspirin 81 MG TAB.CHEW PO (22:00)
[2021-05-30] MEDS: Atorvastatin Calcium 20 MG Tablet PO (22:00)
[2021-05-31 05:06] VITALS: BP 140/67; PULSE 64; RESP 16; TEMP 36.9; O2SAT 93
[2021-05-31] MEDS: Acetaminophen 500 MG Tablet 1000 MG PO (05:09)
[2021-05-31] MEDS: Mirabegron 25 MG TAB.ER.24H PO ×2 (05:10→17:10)
[2021-05-31] MEDS: Pantoprazole Sodium 20 MG Tablet PO (05:10)
[2021-05-31] MEDS: Losartan Potassium 100 MG Tablet PO (05:10)
[2021-05-31] MEDS: Levothyroxine 100 MCG Tablet PO (05:10)
[2021-05-31] MEDS: Carbidopa/Levodopa 25/100 Tablet PO ×3 (05:10→17:10)
[2021-05-31] MEDS: Citalopram 10 MG Tablet 30 MG PO (05:11)
[2021-05-31] MEDS: Enoxaparin 40 MG/0.4 ML Syringe SC (05:11)
[2021-05-31] MEDS: Nystatin Powder 15gm Bottle 1 APPLIC TOPICAL ×2 (05:12→17:10)
[2021-05-31] MEDS: Menthol/Lanolin/Calamine/Znox 113 GM Tube 1 APPLIC TOPICAL ×3 (05:12→21:03)
[2021-05-31 05:39] LABS: Absolute Lymphocyte Count 1.98 X10^3/uL (0.83-4.51); Absolute Neutrophil Count 2.3 X10^3/uL (2.0-7.7); Basophil# 0.03 X10^3/uL; Basophil% 0.6 % (0-1); Eosinophil# 0.41 X10^3/uL; Eosinophils% 7.9 % (0-5); Hematocrit 37.3 % (37-47); Hemoglobin 11.8 g/dL (12.0-15.0); Lymphocyte # 1.98 X10^3/ul (0.83-4.51); Lymphocyte % 38.4 % (19-41); Mean Corp Hgb Conc 31.6 g/dL (32-36); Mean Corpuscular Hgb 29.2 pg (27.0-32.0); Mean Corpuscular Volume 92.3 fL (81-99); Mean Platelet Vol. 11.5 fl (6.2-12.0); Monocyte# 0.43 X10^3/uL; Monocyte% 8.3 % (0-10); NRBC Flagged by Analyzer 0 % (0-5); Neutrophil % 44.6 % (47-70); Platelet Count 203 K/mm3 (150-450); RBC Distribution Width CV 13.9 % (11.6-14.6); RBC Distribution Width SD 47.7 fl (35.1-43.9); Red Blood Count 4.04 M/mm3 (4.2-5.4); White Blood Count 5.2 K/mm3 (4.4-11.0)
[2021-05-31 05:54] LABS: Anion Gap 5 (5-15); BUN 34 mg/dL (7-18); BUN/Creat Ratio 47.6 RATIO (10-20); Calcium,Total 8.6 mg/dL (8.5-10.1); Chloride 108 mmol/L (98-107); Creatinine, Serum 0.71 mg/dL (0.55-1.02); EST Glomerular Filtration Rate 84 mL/min (>60); Est Glom Filt Rate - Afr Amer 102 mL/min (>60); Estimated Creatinine Clearance 34.38 ml/min; Glucose 91 mg/dL (74-106); Potassium 4.1 mmol/L (3.5-5.1); Sodium Level 142 mmol/L (136-145)
[2021-05-31 06:25] LABS: Bedside Glucose 83 mg/dL (70-110)
[2021-05-31] MEDS: MENTHOL 226.8 GM JAR 1 APPLIC TOPICAL (09:27)
[2021-05-31 14:22] VITALS: BP 116/62; PULSE 82; RESP 17; TEMP 36.9; O2SAT 96
[2021-05-31 19:30] VITALS: PULSE 78; RESP 14; O2SAT 98
[2021-05-31] MEDS: Atorvastatin Calcium 20 MG Tablet PO (21:03)
[2021-05-31] MEDS: amLODIPine 5 MG Tablet PO (21:03)
[2021-05-31] MEDS: CARBIDOPA/LEVODOPA CR 50/200 Tablet PO (21:03)
[2021-05-31] MEDS: Aspirin 81 MG TAB.CHEW PO (21:03)
[2021-06-01 05:25] VITALS: BP 169/63; PULSE 71; RESP 16; TEMP 36.4; O2SAT 97
[2021-06-01] MEDS: Polyethylene Glycol 3350 17 GM PACKET PO (05:27)
[2021-06-01] MEDS: Menthol/Lanolin/Calamine/Znox 113 GM Tube 1 APPLIC TOPICAL ×3 (05:27→19:56)
[2021-06-01] MEDS: Senna/Docusate Sodium 1 Tablet PO ×2 (05:28→17:10)
[2021-06-01] MEDS: Enoxaparin 40 MG/0.4 ML Syringe SC (05:28)
[2021-06-01] MEDS: Levothyroxine 100 MCG Tablet PO (05:29)
[2021-06-01] MEDS: Pantoprazole Sodium 20 MG Tablet PO (05:29)
[2021-06-01] MEDS: Losartan Potassium 100 MG Tablet PO (05:29)
[2021-06-01] MEDS: Citalopram 10 MG Tablet 30 MG PO (05:29)
[2021-06-01] MEDS: Mirabegron 25 MG TAB.ER.24H PO ×2 (05:29→17:10)
[2021-06-01] MEDS: Carbidopa/Levodopa 25/100 Tablet PO ×3 (05:29→17:10)
[2021-06-01] MEDS: Nystatin Powder 15gm Bottle 1 APPLIC TOPICAL ×2 (05:29→17:10)
[2021-06-01 06:16] LABS: Bedside Glucose 99 mg/dL (70-110)
[2021-06-01] MEDS: MENTHOL 226.8 GM JAR 1 APPLIC TOPICAL (09:18)
[2021-06-01] MEDS: Acetaminophen 500 MG Tablet 1000 MG PO (09:18)
[2021-06-01 10:00] VITALS: PULSE 78; RESP 18; O2SAT 98
[2021-06-01 14:18] VITALS: BP 109/64; PULSE 72; RESP 18; TEMP 36.2; O2SAT 97
[2021-06-01] MEDS: amLODIPine 5 MG Tablet PO (19:56)
[2021-06-01] MEDS: Aspirin 81 MG TAB.CHEW PO (19:56)
[2021-06-01] MEDS: Atorvastatin Calcium 20 MG Tablet PO (19:56)
[2021-06-01] MEDS: CARBIDOPA/LEVODOPA CR 50/200 Tablet PO (19:57)
[2021-06-02] MEDS: Citalopram 10 MG Tablet 30 MG PO (05:14)
[2021-06-02] MEDS: Menthol/Lanolin/Calamine/Znox 113 GM Tube 1 APPLIC TOPICAL ×3 (05:14→21:23)
[2021-06-02] MEDS: Nystatin Powder 15gm Bottle 1 APPLIC TOPICAL ×2 (05:15→17:09)
[2021-06-02] MEDS: Polyethylene Glycol 3350 17 GM PACKET PO (05:15)
[2021-06-02] MEDS: Enoxaparin 40 MG/0.4 ML Syringe SC (05:15)
[2021-06-02] MEDS: Losartan Potassium 100 MG Tablet PO (05:15)
[2021-06-02] MEDS: Levothyroxine 100 MCG Tablet PO (05:16)
[2021-06-02] MEDS: Pantoprazole Sodium 20 MG Tablet PO (05:16)
[2021-06-02] MEDS: Mirabegron 25 MG TAB.ER.24H PO ×2 (05:16→17:09)
[2021-06-02] MEDS: Carbidopa/Levodopa 25/100 Tablet PO ×3 (05:16→17:09)
[2021-06-02] MEDS: Senna/Docusate Sodium 1 Tablet PO ×2 (05:16→17:09)
[2021-06-02 06:29] VITALS: BP 156/72; PULSE 72; RESP 14; TEMP 36.3
[2021-06-02 06:31] LABS: Bedside Glucose 95 mg/dL (70-110)
--- NOTE | 2021-06-02 13:03 | CASEMGMT ---
Social Work Notified by nursing staff that patient/patient daughter would like to set discharge date. Telephone call to patient daughter, Karolina. Karolina request for discharge date to be set for 06/04/2021. Met with patient in room. Patient agreeable to discharge date and is also requesting to discharge on 06/04/2021. Team agreeable to discharge date. This social insurance administrator communicated to Karolina that team recommendation is for patient to have continued home health services for physical, occupational, and speech therapy as well as senior living and a home health aide. Karolina agreeable to recommendation and request for home health care to be set up through [facility] ([facility] Karolina reports that patient has all needed DME. Karolina plans to provide transportation to home for patient. Patient and Karolina with no further questions/concerns. This social insurance administrator did communicate to Karolina that team is recommending for patient to have 24/7 supervision at time of discharge. Karolina reports that patient lives with family and Karolina's will be around more. [facility] 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 Order entered. Proposed discharge date: 06/04/2021. Danielle MARTINEZ, TRINA
[2021-06-02] MEDS: Acetaminophen 500 MG Tablet 1000 MG PO (13:15)
[2021-06-02 13:25] VITALS: BP 119/68; PULSE 72; RESP 17; TEMP 36.8; O2SAT 98
--- NOTE | 2021-06-02 13:26 | CASEMGMT ---
Social Work Brief interview for mental status (BIMS) and resident mood assessment (PHQ-9) completed on this day. Danielle MARTINEZ, LILIBETHS
--- NOTE | 2021-06-02 14:10 | PCM.DC.SUM ---
Providers Date of Admission: 05/16/21 Primary Care Physician: Dr. Beltran Garza MD Reason For Visit: ACUTE CYSTITIS/ENCEPHALOPATHY Diagnosis Discharge Diagnosis (1) Debility: Status: Acute Code(s): R53.81 - Other malaise (2) Encephalopathy: Status: Acute Code(s): G93.40 - Encephalopathy, unspecified (3) Acute UTI: Status: Acute Code(s): N39.0 - Urinary tract infection, site not specified (4) Depression: Status: Acute Code(s): F32.9 - Major depressive disorder, single episode, unspecified (5) Hypothyroidism: Status: Acute Code(s): E03.9 - Hypothyroidism, unspecified (6) Hyperlipidemia: Status: Acute Code(s): E78.5 - Hyperlipidemia, unspecified (7) Parkinson disease: Status: Acute Code(s): G20 - Parkinson's disease (8) Overactive bladder: Status: Acute Code(s): N32.81 - Overactive bladder (9) Gastroesophageal reflux disease: Status: Acute Code(s): K21.9 - Gastro-esophageal reflux disease without esophagitis Medications at Discharge Home Medications citalopram 30 mg PO DAILY 12/31/14 levothyroxine 100 mcg PO DAILY 12/31/14 aspirin 162 mg PO QHS 10/11/17 rosuvastatin 10 mg PO QHS 04/20/18 carbidopa-levodopa 1 ea PO QHS 10/21/19 carbidopa-levodopa 1 tab PO TIDAC 10/21/19 Myrbetriq 25 mg PO BID 05/14/21 midodrine 2.5 mg PO TID 05/14/21 omeprazole 20 mg PO DAILY 05/14/21 oxybutynin chloride 5 mg PO QHS 05/14/21 cefdinir 300 mg PO BID 05/16/21 acetaminophen 1,000 mg PO Q6H PRN PRN #0 tab 06/02/21 amlodipine 5 mg PO QHS 30 Days #30 tab 06/02/21 aspirin 81 mg PO QHS #0 tab 06/02/21 levothyroxine 100 mcg PO DAILY 30 Days #30 tab 06/02/21 losartan 100 mg PO DAILY 30 Days #30 tab 06/02/21 Hospital Course Operations None Procedures None Summary of Care Provided Minutes Spent on Discharge: 35 Hospital Course: 75 year old female with below past medical history hospitalized for encephalopathy secondary to urinary tract infection, admitted to TCU with debility, here for rehabilitation, strengthening, prior to discharge home with family. 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 Physical Exam Const alert and oriented x3 General Appearance: cooperative HEENT normocephalic Eyes PERRL and EOMs intact bilaterally Neck supple, no JVD and no carotid bruits Resp normal respiratory effort, normal air movement and clear to auscultation bilaterally Cardio regular rate and regular rhythm GI normal to inspection, nondistended, normoactive bowel sounds, non-tender and non-distended Extremity normal capillary refill General Extremity: Negative for edema Skin no rashes or lesions noted General Skin Exam: no breakdown Psych affect normal Appearance: appropriate Weight / BMI Weight Weight: 63.985 kg Body Mass Index (BMI) 27.3 ABG / Lab / Microbiology Data Result Diagrams: 05/31/21 05:20 05/31/21 05:20 Laboratory: Laboratory Results - last 24 hr 06/02/21 06:23: POC Glucose 95 Microbiology: Microbiology 05/16/21 16:42 Mucosa - Nose SARS-CoV-2 Antigen (Rapid) - Final D/C Instructions Discharge Diet: No restrictions Discharge Activity: Return to Normal Activity, May Shower and Use Walker Weight Bearing Status: Weight bearing as tolerated Call your doctor if you observe: Fever of 101 or Higher, Inability to urinate, Inability to have a bowel movement, Shortness of breath, Dizziness, Fainting spells, Swelling in the ankles, Chest pain, Increased palpitations (irregular heartbeat) and Uncontrolled pain Additional Instructions: Discharge home with family 10/06 supervision 06/04/2021, [facility] PT/OT///HALIMA. Please Follow Up With: Beltran Garza Chi, MD When: 1 week. 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 Discharge Orders/Prescriptions Prescriptions: New aspirin 81 mg Tablet,Chewable 81 mg PO QHS Qty: 0 RF: 0 acetaminophen 500 mg Tablet 1,000 mg PO Q6H PRN PRN (Reason: Pain Score 1-10) Qty: 0 RF: 0 levothyroxine 100 mcg Tablet 100 mcg PO DAILY 30 Days Qty: 30 RF: 0 amlodipine 5 mg Tablet 5 mg PO QHS 30 Days Qty: 30 RF: 0 losartan 100 mg Tablet 100 mg PO DAILY 30 Days Qty: 30 RF: 0 Continued citalopram 20 MG tablet 30 mg PO DAILY RF: 0 rosuvastatin 20 MG tablet 10 mg PO QHS RF: 0 carbidopa-levodopa 1 EACH tablet extended release 1 ea PO QHS RF: 0 carbidopa-levodopa 1 TABLET tablet 1 tab PO TIDAC RF: 0 omeprazole 20 mg Capsule,Delayed Release(Dr/Ec) 20 mg PO DAILY RF: 0 Myrbetriq 25 mg Tablet Extended Release 24 Hr 25 mg PO BID RF: 0 No Action levothyroxine 88 MCG tablet 100 mcg PO DAILY RF: 0 aspirin 81 MG tablet,chewable 162 mg PO QHS RF: 0 midodrine 2.5 mg Tablet 2.5 mg PO TID RF: 0 oxybutynin chloride 5 mg Tablet 5 mg PO QHS RF: 0 cefdinir 300 mg capsule 300 mg PO BID RF: 0 Referrals / Follow Up: Beltran Garza Chi, MD [Primary Care Provider] - In 1 Week Disposition Disposition (needs filled in before D/C Order can be placed): Home, Self Care
[2021-06-02] MEDS: Aspirin 81 MG TAB.CHEW PO (21:24)
[2021-06-02] MEDS: Atorvastatin Calcium 20 MG Tablet PO (21:25)
[2021-06-02] MEDS: amLODIPine 5 MG Tablet PO (21:25)
[2021-06-02] MEDS: CARBIDOPA/LEVODOPA CR 50/200 Tablet PO (21:26)
[2021-06-02 22:26] VITALS: PULSE 74; RESP 12
[2021-06-03] MEDS: Enoxaparin 40 MG/0.4 ML Syringe SC (04:42)
[2021-06-03] MEDS: Polyethylene Glycol 3350 17 GM PACKET PO (04:42)
[2021-06-03] MEDS: Menthol/Lanolin/Calamine/Znox 113 GM Tube 1 APPLIC TOPICAL ×3 (04:42→20:07)
[2021-06-03] MEDS: Nystatin Powder 15gm Bottle 1 APPLIC TOPICAL ×2 (04:43→17:33)
[2021-06-03] MEDS: Citalopram 10 MG Tablet 30 MG PO (04:43)
[2021-06-03] MEDS: Losartan Potassium 100 MG Tablet PO (04:43)
[2021-06-03] MEDS: Mirabegron 25 MG TAB.ER.24H PO ×2 (04:44→17:33)
[2021-06-03] MEDS: Senna/Docusate Sodium 1 Tablet PO ×2 (04:44→17:32)
[2021-06-03] MEDS: Levothyroxine 100 MCG Tablet PO (04:44)
[2021-06-03] MEDS: Pantoprazole Sodium 20 MG Tablet PO (04:44)
[2021-06-03] MEDS: Carbidopa/Levodopa 25/100 Tablet PO ×3 (04:44→17:33)
[2021-06-03 06:21] LABS: Bedside Glucose 89 mg/dL (70-110)
[2021-06-03 06:30] VITALS: BP 151/79; PULSE 72; RESP 12; TEMP 36.3; O2SAT 96
[2021-06-03 14:17] VITALS: BP 151/66; PULSE 76; RESP 14; TEMP 36.8; O2SAT 96
--- NOTE | 2021-06-03 16:36 | NURSING ---
Pt having increased confusion this shift. Pt stated that she cannot tell when she starts and stops and having more frequency. Dr. Garza Updated new order for Urinalysis entered.
[2021-06-03 17:42] LABS: Bacteria 0 SEEN /hpf (None Seen); Mucous, Urine 0 SEEN /hpf (<or=2+); Squamous Epithelial Cells - UA 0 SEEN /hpf (5-10); White Blood Cells 0 SEEN /hpf (0-5)
[2021-06-03 17:44] LABS: Color, Urine Yellow (Yellow); Glucose, Dipstick Normal (Normal); Ketone-Dipstick Negative (Negative); Leukocyte Esterase-Dipstick Negative /ul (Negative); Nitrite-Dipstick Negative (Negative); Occult Blood-Urine Negative /ul (Negative); Protein-Dipstick Negative (Negative); Urine Bilirubin Dipstick Negative (Negative); Urine Clarity Clear (Clear); Urine Urobilinogen Normal (Normal)
[2021-06-03 17:55] LABS: Red Blood Cells-Urine 0-5 SEEN /hpf (0-5)
[2021-06-03] MEDS: Atorvastatin Calcium 20 MG Tablet PO (20:08)
[2021-06-03] MEDS: Aspirin 81 MG TAB.CHEW PO (20:08)
[2021-06-03] MEDS: CARBIDOPA/LEVODOPA CR 50/200 Tablet PO (20:08)
[2021-06-03] MEDS: amLODIPine 5 MG Tablet PO (20:09)
[2021-06-04 05:17] VITALS: BP 149/68; PULSE 72; RESP 14; TEMP 36.4; O2SAT 96
[2021-06-04] MEDS: Menthol/Lanolin/Calamine/Znox 113 GM Tube 1 APPLIC TOPICAL (05:18)
[2021-06-04] MEDS: Nystatin Powder 15gm Bottle 1 APPLIC TOPICAL (05:18)
[2021-06-04] MEDS: Polyethylene Glycol 3350 17 GM PACKET PO (05:19)
[2021-06-04] MEDS: Enoxaparin 40 MG/0.4 ML Syringe SC (05:19)
[2021-06-04] MEDS: Losartan Potassium 100 MG Tablet PO (05:22)
[2021-06-04] MEDS: Levothyroxine 100 MCG Tablet PO (05:22)
[2021-06-04] MEDS: Citalopram 10 MG Tablet 30 MG PO (05:22)
[2021-06-04] MEDS: Mirabegron 25 MG TAB.ER.24H PO (05:22)
[2021-06-04] MEDS: Pantoprazole Sodium 20 MG Tablet PO (05:22)
[2021-06-04] MEDS: Carbidopa/Levodopa 25/100 Tablet PO ×2 (05:23→11:30)
[2021-06-04] MEDS: Senna/Docusate Sodium 1 Tablet PO (05:23)
[2021-06-04 06:36] LABS: Bedside Glucose 103 mg/dL (70-110)
[2021-06-04 12:21] VITALS: BP 132/75; PULSE 65; RESP 18; TEMP 36.5; O2SAT 98
== END 2021-06-04 12:15 | disposition home health service (06) | DRG 690 ==
PROVIDERS: Admitting Provider Family Medicine Geriatric Medicine; PCP Family Medicine Geriatric Medicine; Visit Provider Family Medicine Geriatric Medicine
DX: N39.0 Urinary tract infection, site not specified (principal); M19.90 Unspecified osteoarthritis, unspecified site; E78.5 Hyperlipidemia, unspecified; E11.9 Type 2 diabetes mellitus without complications; I10 Essential (primary) hypertension; E03.9 Hypothyroidism, unspecified; G20 Parkinson's disease; F32.9 Major depressive disorder, single episode, unspecified; N32.81 Overactive bladder; K21.9 Gastro-esophageal reflux disease without esophagitis; Z79.899 Other long term (current) drug therapy; Z79.82 Long term (current) use of aspirin; Z87.891 Personal history of nicotine dependence
CPT/HCPCS: 36415; 80048; 81001; 82962; 85025; 87086; 87426; 92507; 92523; 92610; 97110; 97116; 97162; 97166; 97530; 97535; 97802

== ENCOUNTER 2021-06-23 15:36 | Outpatient (RCR) | payer MEDICARE, SELFPAY ==
[2021-06-23 16:06] LABS: Color, Urine Yellow (Yellow); Glucose, Dipstick Normal (Normal); Ketone-Dipstick 5 mg/dl (Negative); Leukocyte Esterase-Dipstick 25 /ul (Negative); Nitrite-Dipstick Negative (Negative); Occult Blood-Urine 10 /ul (Negative); Protein-Dipstick 30 mg/dl (Negative); Specific Gravity, Urine 1.015 (1.002-1.030); Urine Bilirubin Dipstick Negative (Negative); Urine Clarity Sl. Cloudy (Clear); Urine Urobilinogen Normal (Normal)
== END 2021-06-23 18:00 | disposition home or self-care (01) ==
LOC: HHLAB 15:36
PROVIDERS: PCP Family Medicine Geriatric Medicine; Visit Provider Family Medicine Geriatric Medicine
DX: N30.00 Acute cystitis without hematuria (principal); G93.40 Encephalopathy, unspecified; G20 Parkinson's disease
CPT/HCPCS: 81002; 87086; 87088

== ENCOUNTER → 2021-07-11 13:05 | Outpatient (CLI) | payer MEDICARE, SELFPAY | PROVIDERS: PCP Family Medicine Geriatric Medicine; Referring Provider Family Medicine Geriatric Medicine; Visit Provider Family Medicine Geriatric Medicine | DX: R13.10 Dysphagia, unspecified (principal) | CPT/HCPCS: 74230 ==

== ENCOUNTER → 2021-07-12 08:21 | Outpatient (CLI) | payer MEDICARE, SELFPAY ==
--- NOTE | 2021-07-11 14:51 | ST.MBS ---
Modified Barium Swallow - Patient Information Study Date: 07/11/21 Study Time: 13:30 Direct Billable Minutes: 120 Total Minutes procedure & reportin Diagnosis: Dysphagia, unspecified (R13.10) Referring Physician: Beltran Garza Chi Reason for Referral: Objectively assess for swallow dysfunction and aspiration risk. Medical History: The patient is a 75 year old female with PMH including Arthritis, Depression, Diabetes mellitus, type 2m, Hemorrhoids, Hyperlipidemia, Hypertension, Hypothyroidism. Patient recently was admitted to [facility] ED 05/14/2021 for fall at home, increasing weakness, nausea, vomiting, diarrhea. She was transferred to TCU 05/16/2021 after diagnosis of UTI and debility for PT/OT. Pt was referred for speech consult during stay on TCU. She was evaluated for dysphagia and cognition. Pt not found to have dysphagia at the time with BSE; however, she was followed for cognitive communication deficit. Pt was referred home with home health PT, ST, OT recommendation. The family opted for only PT and OT services. Recently, pt has begun having intermittent coughing with food and drink. Pt and daughter unable to provide specific examples of foods/drinks that trigger coughing. Per pt's daughter, the patient will also expectorate clear mucous approximately 10 minutes after meals. At times, she has difficulty coughing out and clearing the mucous. The patient has a history of reflux, managed by medication per family. Pt is planned for a barium esophagram 07/12/2021. Current Diet Ordered: Regular Textures / Thin Liquids Dentition: Natural Teeth Mental Status: Impaired - Required repetition of instructions throughout examination. She became easily distracted. Respiratory Status: Oxygenating on Room Air - Penetration-Aspiration Scale Penetration-Aspiration Scale: OBJECTIVE ASSESSMENT OF SWALLOW FUNCTION (QUANTITATIVE ? PER TRIAL): PENETRATION / ASPIRATION SCALE (TEJADA): 1 = does not enter airway 2 = enters airway/above vocal folds/ejected 3 = enters airway/above vocal folds/not ejected 4 = enters airway/contacts vocal folds/ejected 5 = enters airway/contacts vocal folds/not ejected 6 = enters airway/below vocal folds/ejected 7 = enters airway/below vocal folds/not ejected despite effort 8 = enters airway/below vocal folds/no effort VIDEOFLOROSCOPIC SCALE SCORE (TEJADA): Grade I = aspiration of material that has penetrated into the laryngeal vestibule, intact cough reflex Grade II = aspiration < 10 % of the bolus, intact cough reflex Grade III = aspiration of < 10 % of the bolus, reduced cough reflex or aspiration of > 10 % of the bolus, intact cough reflex Grade IV = aspiration of > 10 % of the bolus, reduced cough reflex - Penetration-Aspiration Scale Score Thin Liquid via teaspoon Result: 2= enter airway/above vocal folds/ejected Thin Liquid via teaspoon Trial 2 Result: 2= enter airway/above vocal folds/ejected Thin Liquid via small single sip from cup Result: 1= does not enter airway Gueydan Thick Liquid via small single sip from cup Result: 2= enter airway/above vocal folds/ejected Honey Thick Liquid via small single sip from cup Result: 1= does not enter airway Pudding Result: 1= does not enter airway Cookie Result: 1= does not enter airway Thin Liquid via single sip from straw Result: 1= does not enter airway Thin Liquid via sequential sips from straw Result: 1= does not enter airway Thin Liquid via sequential sips from cup Result: 2= enter airway/above vocal folds/ejected - Oral Phase Labial Seal: No Labial Escape Tongue Control During Bolus Hold: Posterior escape of less than half of bolus Bolus Preparation/Mastication: Slow prolonged chewing/mashing with complete recollection Bolus Transport/Lingual Motion: Brisk tongue motion Oral Residue: Trace residue lining oral structures - Pharyngeal Phase Initiation of Pharyngeal Swallow: Bolus head in pyriforms Soft Palate Elevation: Trace column of contrast/air between soft palate and pharyngeal wall Laryngeal Elevation: Partial superior movement thyroid cart/partial apprx aryt-epig petiole Anterior Hyoid Excursion: Partial anterior movement Epiglottic Movement: Complete inversion Laryngeal Vestibule Closure at Height of Swallow: Incomplete; narrow column of air/contrast in laryngeal vestibule Pharyngeal Stripping Wave: Present - diminished Pharyngoesophageal Segment Opening: Complete distension and complete duration; no obstruction of flow Tongue Base Retraction: Trace column of contrast between tongue base & post. pharyngeal wall Pharyngeal Residue: Collection of residue within or on pharyngeal structures - Esophageal Phase Esophageal Clearance: Esophageal retention w/ retrograde flow below pharyngoesophageal seg. - Treatment Strategies Effects of treatment strategies attemped:: Decreased bolus rate = Effective in reducing pharyngeal residue and improving swallow onset. - Diagnosis/Impression Diagnosis: Mild oropharyngeal dysphagia (R13.12) Impression: The oral phase is primarily marked by prolonged mastication and trace oral residues of various trials. The patient did become easily distracted during the study and spoke with solid cookie trial in oral cavity prior to swallowing. The pharyngeal phase is primarily marked by mildy decreased airway protection due to moderately reduced anterior hyoid excursion and laryngeal elevation. The patient presented with penetration of thin by tsp, sequential thin by cup, and nectar by cup above the vocal folds with full ejection from the laryngeal vestibule. The patient had mild pharyngeal residue noted with sequential sips. After study was completed, the pt presented with coughing immediately following sip of thin liquid via water bottle. Prominent cricopharyngeal bar located at the C-5 level, no effect on pharyngoesophageal motility during the study. Additionally, noted narrowing in upper esophagus, which also did not appear to obstruct bolus. SEE photos attached at end of study in PACS. Pt observed to have tortuous esophagus. Esophageal retention of pudding trial observed in medial/distal esophagus. Min retrograde flow of sequential cup sips observed in distal esophagus. Contrast remained below UES. - Recommendations Diet: Regular Textures - Easy to Chew, Thin Liquids Comment: Limit distractions at meal time. Clear oral cavity prior to speaking. Compensatory Strategies: Small Bites, Small Sips, Slow Rate - Sips one at a time., Sitting upright, Remain sitting upright for 30 minutes after PO intake, Assist with verbal cues to use recommended strategies Supervision: Assist as needed Recommend Repeat Modified Barium Swallow: TBD Comment: Would recommend the patient participate in outpatient speech therapy services to address mild deficits in oropharyngeal swallow function. The patient will benefit from continued training in compensatory strategies to decrease risk for aspiration. Additionally, would implement home oropharyngeal exercise program with emphasis on improving anterior hyoid excursion and laryngeal elevation (e.g. effortful swallow, Krystle, and Luis). Need for Skilled Speech Therapy Services: Yes Recommended Referrals: GI Consult - Pt participating in barium esophagram 07/12/2021. Education Completed: 1. Described result of evaluation., 4. Family/caregivers understand evaluation & agree w/ goals & tx plan., 7. Pt requires further education on strategies & risks. - Status Active ST Patient: Active - Contact Information [facility] Speech Therapy:: Eliza Bloom M.A. CCC-DELIVERER OUTSIDE Speech-Language Pathologist [address] [id number] [email or web address] [phone] 07/11/21 15:21
--- NOTE | 2021-07-12 08:29 | RAD_ITS ---
STUDY: X-RAY - ESOPHAGUS (BARIUM SWALLOW) WITH FLUOROSCOPY REASON FOR EXAM: Female, 75 years old. DYSPHAGIA TECHNIQUE: 22 view(s) of the esophagus were obtained following swallowing of barium. FLUOROSCOPY TIME (if supplied): (51 seconds) minutes/seconds COMPARISON: Comparison is made with prior study dated 10/28/2017. FINDINGS: There is no demonstrated esophageal foreign body. There is tertiary contractions of the mid and distal esophagus. There is a small sliding hiatal hernia without gastroesophageal reflux. Patient was not able to swallow the 12 mm tablet of barium. There is atherosclerotic calcification of the aortic arch with tortuosity of the descending aorta. Normal visualized pulmonary parenchyma. There are diffuse degenerative changes of the visualized thoracic spine. RAD/Esophagus Dual Contrast IMPRESSION: Tertiary contractions of the mid and distal esophagus. Small hiatal hernia without gastroesophageal reflux. Patient was unable to swallow the 12 mm tablet at bedtime. Electronically Signed: Masood Wallace MD at 10:15 EDT , Service support ,
== END ==
PROVIDERS: PCP Family Medicine Geriatric Medicine; Referring Provider Family Medicine Geriatric Medicine; Visit Provider Family Medicine Geriatric Medicine
DX: R13.10 Dysphagia, unspecified (principal)
CPT/HCPCS: 74221; 92611